=== PATIENT | female | born 1935 | race Asian ===

== ENCOUNTER → 2018-03-11 09:01 | Outpatient (CLI) | payer MEDICARE, OTHER, SELFPAY ==
--- NOTE | 2018-03-11 | DI.US.S_ITS ---
PROCEDURE: US RETRO PERITONEAL LIMITED INDICATIONS: SUPRA RENAL ABDOMINAL AORTIC ANEURYSM TECHNIQUE: Real time scanning was performed of the aorta and iliac arteries, with image documentation. COMPARISON: Outside Facility, RG, CT THORAX/ABDOMEN/PELVIS WITH CONTRAST, 07/29/2017, 12:19. FINDINGS: Aorta: Proximal aortic diameter measures 2.9 cm. Mid-aorta measures 4.5 cm (previously measuring 3.9 cm). Distal aortic diameter is 1.4 cm. Iliac arteries: Right common iliac artery measures 2.9 cm. Left common iliac artery measures 0.7 cm. IMPRESSION: Prominent aneurysm of the midabdominal aorta. The size of the aneurysm is slightly increased. The need for followup CT angiographic imaging may be determined clinically. Dictated by: Yakov Rosario M.D. on 03/11/2018 at 10:20 Approved by: Yakov Rosario M.D. on 03/11/2018 at 10:22
== END ==
PROVIDERS: Family Provider Family Medicine; PCP Family Medicine; Visit Provider Family Medicine
DX: I71.4 Abdominal aortic aneurysm, without rupture (principal)
CPT/HCPCS: 76775

== ENCOUNTER → 2018-09-01 10:58 | Outpatient (CLI) | payer MEDICARE, OTHER, SELFPAY ==
--- NOTE | 2018-09-01 | DI.US.S_ITS ---
PROCEDURE: US RETRO PERITONEAL LIMITED INDICATIONS: AAA WITHOUT RUPTURE TECHNIQUE: Real time scanning was performed of the aorta and iliac arteries, with image documentation. COMPARISON: [facility], , RETRO PERITONEAL LIMITED, 03/11/2018, 9:53. FINDINGS: Aorta: Proximal aortic diameter measures 2.5 cm. Mid-aorta measures 4.5 cm. Distal aortic diameter is 1.4 cm. Iliac arteries: Right common iliac artery measures 0.7 cm. Left common iliac artery measures 0.8 cm. IMPRESSION: No change in appearance and size of mid abdominal aortic aneurysm. 6 month followup recommended. Dictated by: Chaz Rangel [facility] Interpreted: Wes Tucker MD on 09/01/2018 at 11:54 Approved by: Wes Tucker M.D. on 09/01/2018 at 16:39
== END ==
PROVIDERS: PCP Family Medicine; Visit Provider Family Medicine
DX: I71.4 Abdominal aortic aneurysm, without rupture (principal)
CPT/HCPCS: 76775

== ENCOUNTER → 2019-08-18 07:48 | Outpatient (CLI) | payer MEDICARE, OTHER, SELFPAY ==
[2019-08-18 08:26] LABS: Alanine Aminotransferase 26 IU/L (<35); Albumin 4.8 g/dL (3.5-5.0); Albumin Globulin Ratio 1.4 (1.0-2.8); Alkaline Phosphatase 86 U/L (38-126); Aspartate Aminotransferase 36 IU/L (14-36); Bilirubin Total 0.6 mg/dL (0.2-1.3); Blood Urea Nitrogen 21 mg/dL (7-17); Carbon Dioxide 27 mmol/L (22-32); Chloride 106 mmol/L (98-107); Estimated Glomerular Filt Rate > 60.0 mL/min (>60); Globulin 3.4 g/dL (1.7-4.1); Glucose 162 mg/dL (80-110); HEMOLYSIS < 15 (0-50); Potassium 4.1 mmol/L (3.4-5.1); Sodium 143 mmol/L (137-145); Total Protein 8.2 g/dL (6.3-8.2)
--- NOTE | 2019-08-18 09:11 | DI.CT.S_ITS ---
PROCEDURE: CT ABDOMEN PELVIS W CON INDICATIONS: PELVIC PAIN,ANEURSYM TECHNIQUE: After the administration of oral and intravenous contrast, 5 mm thick sections acquired from the diaphragms to the symphysis. 5 mm thick coronal and sagittal reformats were performed. For radiation dose reduction, the following was used: automated exposure control, adjustment of mA and/or kV according to patient size. COMPARISON: Outside Film, CT, CT ANGIO CHEST ABDOMEN PELVIS, 04/02/2019, 14:39. FINDINGS: Image quality: Excellent. ABDOMEN: Lung bases: Lung bases are clear. Heart size is borderline enlarged. Solid organs: Dominant hepatic cyst measuring approximately 7 cm. Additional presumed scattered hepatic cysts although technically too small to characterize accurately. Gallbladder unremarkable although mildly distended. Extrahepatic bile ducts are mildly prominent however no definite radiopaque calculus seen by CT. This line also unchanged in 04/02/19 Pancreas enhances normally. Spleen is normal in size and enhancement. No adrenal nodules. Kidneys are normal in size and enhancement, without hydronephrosis. Bilateral renal cysts with simple appearance Peritoneum and bowel: Diminutive appearance of the collapsed stomach, which is possibly related to postsurgical sequela. Incidental duodenal diverticulum. Normal appendix. Incidental colonic diverticulosis. There is moderate large amount of diffuse stool. The small bowel, and colon loops are normal in caliber and wall thickness. No free fluid or air. Nodes and vessels: No retroperitoneal or mesenteric adenopathy. Large abdominal aortic aneurysm with intraluminal thrombus measuring 5.6 x 5.6 cm, grossly unchanged since 04/02/19 Miscellaneous: No ventral hernias. PELVIS: Genitourinary: Bladder wall thickness is normal. Miscellaneous: No inguinal hernias or adenopathy. Bones: Mild T12 compression fracture as before and grossly unchanged Nonspecific right rib sclerosis, subcentimeter in size, image 10 series 3. IMPRESSION: No acute process identified. Redemonstration of large abdominal aortic aneurysm, grossly unchanged since 04/02/19. Normal appendix. Hepatic and renal cysts. Incidental colonic diverticulosis. Additional chronic and incidental findings as above. Dictated by: Wes Tucker M.D. on 08/18/2019 at 10:41 Approved by: Wes Tucker M.D. on 08/18/2019 at 10:57
== END ==
PROVIDERS: PCP Family Medicine; Visit Provider Family Medicine
DX: R10.2 Pelvic and perineal pain (principal); I71.4 Abdominal aortic aneurysm, without rupture; K76.89 Other specified diseases of liver; N28.1 Cyst of kidney, acquired; K57.10 Diverticulosis of small intestine without perforation or abscess without bleeding; K57.90 Diverticulosis of intestine, part unspecified, without perforation or abscess without bleeding; M48.54XS Collapsed vertebra, not elsewhere classified, thoracic region, sequela of fracture
CPT/HCPCS: 36415; 74177; 80053; Q9967

== ENCOUNTER 2019-09-01 18:27 | Emergency (ER) | payer MEDICARE, OTHER, SELFPAY ==
[2019-09-01 18:40] VITALS: BP 113/65; PULSE 68; RESP 18; TEMP 37.5; O2SAT 93; BMI 22.6
[2019-09-01 19:21] LABS: INR 1.1 (0.9-1.3); Prothrombin Time 12.7 SECONDS (10.1-12.7)
[2019-09-01 19:23] LABS: Add Manual Diff / Slide Review NO; Basophils Absolute Auto 0 /uL (0-100); Basophils Percent Auto 0.2 % (0-2); Eosinophils Absolute Auto 0 /uL (0-450); Eosinophils Percent Auto 0.3 % (2-4); Hematocrit 29.2 % (36-46); Hemoglobin 9.7 g/dL (12.0-16.0); Lymphocytes Absolute Auto 700 /uL (1100-4500); Lymphocytes Percent Auto 4.7 % (25-40); Mean Corpuscular HGB Conc 33.1 % (30-36); Mean Corpuscular Hemoglobin 29.6 PG (26-34); Mean Corpuscular Volume 89.6 fL (80-100); Monocytes Absolute Auto 1900 /uL (0-900); Monocytes Percent Auto 12.3 % (3-14); Neutrophils Absolute Auto 12600 /uL (1500-7000); Neutrophils Percent Auto 82.5 % (50-75); PTT Partial Thromboplastin Tim 31 SECONDS (26.4-36.2); Platelet Count 522 X10^3/uL (150-400); Red Blood Cell Count 3.26 X10^6/uL (4.0-5.2); Red Cell Distribution Width 14.7 % (11.6-14.8); White Blood Cell Count 15.2 X10^3/uL (4.5-11.0)
[2019-09-01 19:31] LABS: Alanine Aminotransferase 19 IU/L (<35); Albumin 3.1 g/dL (3.5-5.0); Alkaline Phosphatase 95 U/L (38-126); Aspartate Aminotransferase 33 IU/L (14-36); BUN Creatinine Ratio 31.7 (6-22); Bilirubin Total 1.3 mg/dL (0.2-1.3); Blood Urea Nitrogen 19 mg/dL (7-17); Calcium 8.6 mg/dL (8.4-10.2); Carbon Dioxide 31 mmol/L (22-32); Chloride 101 mmol/L (98-107); Estimated Glomerular Filt Rate > 60.0 mL/min (>60); Globulin 3.1 g/dL (1.7-4.1); Glucose 140 mg/dL (80-110); HEMOLYSIS < 15 (0-50); Lipase 38 U/L (23-300); Potassium 4.2 mmol/L (3.4-5.1); Sodium 134 mmol/L (137-145); Total Protein 6.2 g/dL (6.3-8.2)
--- NOTE | 2019-09-01 19:33 | ED.ABDPAIN ---
HPI - Abdominal Pain General Chief Complaint: Abdominal Pain Stated Complaint: left lower abd pain Time Seen by Provider: 09/01/19 19:32 Source: patient and family Mode of arrival: Ambulatory Limitations: no limitations History of Present Illness HPI narrative: This is an 84-year-old female who is sent to the emergency department with left lower quadrant pain. Patient had an aortic aneurysm with a stent placed at [facility] on 08/23/2019. Patient's family states she had pain afterwards. They did a CAT scan shortly thereafter and it was noted that this stent was in place but there was a piece of wire or some sort of foreign body in the skin of the left kidney. She has not had any further follow-up scan since then. She has not had fevers but she continues to have left lower quadrant pain that has been slowly increasing in intensity since the surgery. Patient has been taking oxycodone 5-10 mg as needed. She was seen by her primary today on they were concerned and sent for imaging. She denies any nausea, no vomiting she has been having bowel movements that are sort of liquidy but no bright red blood or black. She has been urinating without issue no frequency dysuria or hematuria. Movement such as getting up or getting down increases her pain. Pain is in the left lower quadrant groin area but also a little bit into the back. Dr. rivers he is her primary care. She has diabetes and hypertension. Related Data Home Medications Medication Instructions Recorded Confirmed LISINOPRIL (Zestril / Prinivil) 40 mg PO Q DAY #0 09/02/07 POLYETHYLENE GLYCOL 3350 17 gm PO #0 09/20/16 acetaminophen 160 mg PO Q4HP PRN #0 09/20/16 amlodipine [Norvasc] 5 mg PO QDAY #0 09/20/16 citalopram 10 mg PO QDAY #0 09/20/16 metoprolol tartrate 12.5 mg PO BID #0 09/20/16 Previous Rx's Medication Instructions Recorded lorazepam [Ativan] 0.5 mg PO BIDP PRN #15 tab 07/15/16 nystatin 5 ml PO QID #360 ml 05/06/17 Allergies Allergy/AdvReac Type Severity Reaction Status Date / Time atenolol [ATENOLOL] Allergy Severe RESP Verified 09/01/19 18:39 DISTRESS Hglroxp-Wzt-Khd Reductase Allergy Severe RESP Verified 09/01/19 18:39 Inhibitor DISTRESS [[id number] REDUCTASE INHIBITOR] levofloxacin [From LEVAQUIN] Allergy Intermediate swollen Verified 09/01/19 18:39 tongue sertraline [From ZOLOFT] Allergy Mild UNSURE Verified 09/01/19 18:39 Iodine and Iodide Containing Allergy Verified 09/01/19 18:40 Produc Review of Systems Review of Systems ROS Unobtainable: All systems reviewed & are unremarkable except as noted in HPI and below Patient History Social History Smoking Status: Never smoker Substance Use Type: does not use Exam Narrative Exam Narrative: GENERAL: Alert and oriented x three, well-nourished female in mild distress. HEENT: Head normocephalic, atraumatic, EOMI, pupils reactive, face symmetric, moist mucous membranes NECK: Supple, full range of motion CARDIOVASCULAR: Regular rate and rhythm without murmurs, rubs or gallops. RESPIRATORY: Breath sounds equal bilaterally, no wheezes rales or rhonchi. ABDOMEN: Soft, positive for left lower quadrant as well as right lower quadrant tenderness but significantly more tender on the left. No inguinal hernias palpated on the left or right, patient's incision site is nontender. Appears to be healing appropriately. No mass, no erythema or skin changes otherwise noted other than a very small area of ecchymosis. Normoactive bowel sounds all 4 quadrants. No guarding or rebound, rigidity, no mass : No CVA tenderness EXTREMITIES: Normal range of motion, no clubbing or edema. Neurovascularly intact NEUROLOGICAL: Cranial nerves II through XII grossly intact. Moving all extremities SKIN: Warm, dry, no petechiae, no rashes or lesions. Initial Vital Signs Initial Vital Signs: Vital Signs Temperature 99.5 F 09/01/19 18:40 Pulse Rate 68 09/01/19 18:40 Respiratory Rate 18 09/01/19 18:40 Blood Pressure 113/65 09/01/19 18:40 Pulse Oximetry 93 09/01/19 18:40 Course Orders Ordered: ED Orders 09/01/19 19:00 Complete Blood Count AUTO DIFF Stat Comprehensive Metabolic Panel Stat Lipase Stat Partial Thromboplastin Time Stat Procalcitonin Stat Prothrombin Time INR Stat EKG-12 Lead Stat 09/01/19 19:57 EKG-12 Lead Stat 09/01/19 20:15 CT angio chest abdomen pelvis Stat 09/01/19 20:54 Urine Microscopic Stat 09/02/19 01:10 Urine Culture Stat Discontinued Medications Diphenhydramine HCl (Benadryl) 50 mg IV NOW ONE Stop: 09/01/19 20:47 Last Admin: 09/01/19 20:53 Dose: 50 mg Documented by: TERESITA Sodium Chloride (Normal Saline 0.9%) 1,000 mls @ 150 mls/hr IV CONT LIZETH Last Admin: 09/01/19 20:30 Dose: 150 mls/hr Documented by: TERESITA Methylprednisolone (Solu-Medrol 125 Mg Vial) 125 mg IV NOW ONE Stop: 09/01/19 20:47 Last Admin: 09/01/19 20:53 Dose: 125 mg Documented by: TERESITA Vital Signs Vital signs: Vital Signs - 8 hr 09/01/19 20:02 09/01/19 22:36 09/02/19 00:06 Pulse Rate 74 72 81 Respiratory Rate 16 18 24 Blood Pressure Blood Pressure [Right Arm] 121/66 135/75 142/70 H Pulse Oximetry 92 95 95 09/02/19 01:18 09/02/19 01:35 Pulse Rate 70 74 Respiratory Rate 20 16 Blood Pressure 135/67 Blood Pressure [Right Arm] 132/71 Pulse Oximetry 94 97 MDM - Abdominal Pain Lab Data Attestation: I reviewed the patient's lab results. Result diagrams: 09/01/19 19:00 09/01/19 19:00 Labs: Lab Results 09/01/19 09/01/19 09/01/19 Range/Units 19:00 19:00 19:00 WBC 15.2 H (4.5-11.0) X10^3/uL RBC 3.26 L (4.0-5.2) X10^6/uL Hgb 9.7 L (12.0-16.0) g/dL Hct 29.2 L (36-46) % MCV 89.6 (80-100) fL MCH 29.6 (26-34) PG MCHC 33.1 (30-36) % RDW 14.7 (11.6-14.8) % Plt Count 522 H (150-400) X10^3/uL Neut % (Auto) 82.5 H (50-75) % Lymph % (Auto) 4.7 L (25-40) % [place] % (Auto) 12.3 (3-14) % Eos % (Auto) 0.3 L (2-4) % Baso % (Auto) 0.2 (0-2) % Neut # (Auto) 24025 H (6530-0954) /uL Lymph # (Auto) 700 L (9821-4819) /uL [place] # (Auto) 1900 H (0-900) /uL Eos # (Auto) 0 (0-450) /uL Baso # (Auto) 0 (0-100) /uL PT 12.7 (10.1-12.7) SECONDS INR 1.1 (0.9-1.3) APTT 31 (26.4-36.2) SECONDS Sodium 134 L (137-145) mmol/L Potassium 4.2 (3.4-5.1) mmol/L Chloride 101 (98-107) mmol/L Carbon Dioxide 31 (22-32) mmol/L BUN 19 H (7-17) mg/dL Creatinine 0.60 (0.52-1.04) mg/dL Estimated GFR > 60.0 (>60) mL/min BUN/Creatinine Ratio 31.7 H (6-22) Glucose 140 H (80-110) mg/dL Calcium 8.6 (8.4-10.2) mg/dL Total Bilirubin 1.3 (0.2-1.3) mg/dL AST 33 (14-36) IU/L ALT 19 (<35) IU/L Alkaline Phosphatase 95 (38-126) U/L Total Protein 6.2 L (6.3-8.2) g/dL Albumin 3.1 L (3.5-5.0) g/dL Globulin 3.1 (1.7-4.1) g/dL Albumin/Globulin Ratio 1.0 (1.0-2.8) Lipase 38 (23-300) U/L Procalcitonin (<0.5) ng/mL Urine RBC (0-5/HPF) Urine WBC (0-5/HPF) Ur Squamous Epith Cells (0-5/HPF) Urine Bacteria (None) Hyaline Casts (None) Ur Culture Indicated? 09/01/19 09/02/19 Range/Units 19:00 01:10 WBC (4.5-11.0) X10^3/uL RBC (4.0-5.2) X10^6/uL Hgb (12.0-16.0) g/dL Hct (36-46) % MCV (80-100) fL MCH (26-34) PG MCHC (30-36) % RDW (11.6-14.8) % Plt Count (150-400) X10^3/uL Neut % (Auto) (50-75) % Lymph % (Auto) (25-40) % [place] % (Auto) (3-14) % Eos % (Auto) (2-4) % Baso % (Auto) (0-2) % Neut # (Auto) (9988-2085) /uL Lymph # (Auto) (3303-6220) /uL [place] # (Auto) (0-900) /uL Eos # (Auto) (0-450) /uL Baso # (Auto) (0-100) /uL PT (10.1-12.7) SECONDS INR (0.9-1.3) APTT (26.4-36.2) SECONDS Sodium (137-145) mmol/L Potassium (3.4-5.1) mmol/L Chloride (98-107) mmol/L Carbon Dioxide (22-32) mmol/L BUN (7-17) mg/dL Creatinine (0.52-1.04) mg/dL Estimated GFR (>60) mL/min BUN/Creatinine Ratio (6-22) Glucose (80-110) mg/dL Calcium (8.4-10.2) mg/dL Total Bilirubin (0.2-1.3) mg/dL AST (14-36) IU/L ALT (<35) IU/L Alkaline Phosphatase (38-126) U/L Total Protein (6.3-8.2) g/dL Albumin (3.5-5.0) g/dL Globulin (1.7-4.1) g/dL Albumin/Globulin Ratio (1.0-2.8) Lipase (23-300) U/L Procalcitonin 0.33 (<0.5) ng/mL Urine RBC None seen (0-5/HPF) Urine WBC 30-100/hpf H (0-5/HPF) Ur Squamous Epith Cells 1-5 /hpf (0-5/HPF) Urine Bacteria Many (>30) H (None) Hyaline Casts 0-1/lpf (None) Ur Culture Indicated? Specimen cultured Point of care testing: Urine Dip Bedside Urine Glucose Negative Bedside Urine Bilirubin - Negative Bedside Urine Ketone - Negative Urine Specific Reva 1.015 Bedside Urine Occult Blood +/- Bedside Urine pH 6.0 Bedside Urine Protein +/- 15 Bedside Urine Urobilinogen 1+ 2mg Bedside Urine Nitrite - Negative Bedside Urine Leukocytes +++ [address] scan - abdomen: Radiologist's impression: Natasha Manzo 84 F [address] [address] [address] Scan Report Signed Patient: Natasha Manzo MMR#: [id number] : 5Acct:[id number] Age/Sex: 84 / FDate of Service: 09/01/19 Loc: ED Accession Number: [id number] Procedure: CT angio chest abdomen pelvis Ordering Provider: Tiara Chakraborty D.O. PROCEDURE: CT ANGIO CHEST ABDOMEN PELVIS INDICATIONS: aortic stent 08/23, FB L kidney post, ?infx, LLQ pain TECHNIQUE: Precontrast 5 mm thick sections acquired from the lung apices to the iliac crests. After the administration of intravenous contrast, 2.5 mm thick sections again acquired from the lung apices to the iliac crests. Maximum intensity projection (MIP) oblique sagittal and coronal reformats were then acquired. For radiation dose reduction, the following was used: automated exposure control. COMPARISON: [facility], CT, CT ABDOMEN PELVIS W CON, 08/18/2019, 9:09. Outside Film, CT, CT ANGIO CHEST ABDOMEN PELVIS, 04/02/2019, 14:39. FINDINGS: Image quality: Excellent. AORTA: Moderate amount of atherosclerotic calcifications are seen throughout thoracic aorta with no evidence of thoracic aortic aneurysm or dissection. Patient is status post interval abdominal aortic aneurysm repair with aortic stent seen in patient's known fusiform abdominal aortic aneurysm currently measures up to 5.7 x 5.7 cm in largest transverse and AP diameters. There is placement of vascular stents at the origin of celiac axis, superior mesenteric artery, and bilateral renal arteries with contrast seen within and distal to the stents. No evidence of occlusion. There is thrombus formation within the aneurysmal sac. No evidence of endoleak. Moderate atherosclerotic calcifications in bilateral iliac arteries are seen. No iliac artery aneurysm or dissection. Bilateral iliac arteries and femoral arteries are patent. CHEST: Lungs and pleura: Small left pleural effusion is seen with adjacent left lower lobe atelectasis. Right basilar scarring/atelectasis is also seen. No pneumothorax. Central and peripheral airways are patent and normal in caliber. Mediastinum: Heart size is normal. No pericardial effusion. No mediastinal or hilar adenopathy by size criteria. Central pulmonary arteries are normal in size. Esophagus is normal in caliber. No hiatal hernias. Bones and chest wall: No axillary adenopathy by size criteria. Heterogeneous enhancement of the thyroid gland is seen with suggestion of right thyroid nodules. No suspicious bony lesions. No vertebral body compression fractures. ABDOMEN: Solid organs: Liver is normal in size. Multiple renal cysts are again seen, unchanged from previous study Gallbladder is is markedly distended, no gross bladder wall thickening. No calcified bladder stone.. There is no intrahepatic biliary ductal dilatation. Marked dilatation of common bile that is seen and measures up to 1.5 cm in largest diameter compared to 1.1 cm on previous study. Pancreas enhances normally. Spleen is normal in size and enhancement. No adrenal nodules. There is no hydronephrosis. Interval development of massive left subcapsular hematoma is seen measures up to 10 x 7.3 x 14.4 cm in size. There is concern for laceration involving upper pole of left kidney. No right perinephric fluid collection is seen. Normal right renal enhancement is noted. Peritoneum and bowel: No free fluid or air. Bowel loops are normal in caliber and wall thickness. Fecal stasis in the ascending colon and transverse colon is seen. Nodes and vessels: No retroperitoneal or mesenteric adenopathy by size criteria. Inferior vena cava is normal in morphology. Miscellaneous: No ventral hernias. PELVIS: Genitourinary: Bladder wall thickness is normal. Miscellaneous: No inguinal hernias or adenopathy. No ventral hernias. Bones: No suspicious bony lesions. Chronic appearing anterior wedge compression deformity at the T12 level is again seen and unchanged. No acute compression fracture. 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 There is prior right hip arthroplasty. IMPRESSION: 1. interval development of massive left subcapsular perinephric hematoma with concern of laceration involving upper pole of left kidney. No hydronephrosis. Right kidney is within normal limits. 2. Interval abdominal aortic aneurysm repair with aortic stent and stents placed at origin of celiac artery, superior mesenteric artery and bilateral renal arteries. All stents appears to be patent with no evidence of endoleak. 3. Interval development of small to moderate left pleural effusion with adjacent left basilar atelectasis. 4. No evidence of bowel obstruction. No peritoneal free fluid or free air. Fecal stasis in the right side of colon and transverse colon. 5. Multiple right renal cysts. Prominence of common bile duct with increase in size compared to previous study. No gross choledocholithiasis is seen. Gallbladder is markedly distended with no calcified gallstone or gallbladder wall thickening to suggest acute cholecystitis. Dictated by: Cj Boggs M.D. on 09/01/2019 at 21:25 Approved by: Cj Boggs M.D. on 09/01/2019 at 22:47 ECG Data Attestation: I personally reviewed and interpreted this ECG as follows: Prior ECG tracings: available for review Interpretation: Sinus rhythm rate of 65 P are 173 QRS of 105 and QTC of 381. V3 appears to have possibly some ST elevation but not in continuous leads otherwise. Patient's ST segments otherwise appears similar to prior EKG from 09/20/2016 with no other elevation or depression appreciated. EKG 2. Shows sinus rhythm with occasional supraventricular complex. Rate of 67 P are 170 QRS of [address] elevation is not appreciate in V3 or other leads and appears similar to prior. MDM Narrative Medical decision making narrative: Patient's imaging was pushed to [facility] and I spoke with the vascular team and Dr. Ewing, he compared images from July post surgically with today's images and states that the hematoma was present and has not increased in size. He states it is slightly more defined but the same size. We discussed the patient's hemoglobin and hematocrit are actually slightly improved today compared to her last at [facility]. He does not see any signs of pseudoaneurysm or acute bleeding. Discussed that if patient was having significant pain could be observed here at [facility] for pain control and potentially discharged home today but if patient's pain is well controlled she could return home. He indicated that the surgical team would be contacting the patient and family tomorrow for follow-up. Patient has scheduled follow-up on September 28. He did not feel the patient need specific serial imaging for this beyond what is already planned. From his description the patient likely had a wire from their stenting procedure perforate or lacerate the kidney causing the hematoma and it was developed noted while in the hospital and sounds to be stable at this time. We did discuss that her white count is slightly elevated. Patient is denying any fevers currently and has been afebrile we discussed that if she has any worsening symptoms she does need to return as she could develop an infection. Discussed with patient and family they feel comfortable with this plan. She would like to return home at this time and states her pain is well controlled at this time and that it has been fairly well controlled with the pain medication she has been taking. Discharge Plan Departure Patient Disposition: Home Clinical Impression: Hematoma of kidney, History of endovascular stent graft for abdominal aortic aneurysm Discharge Date/Time: 09/02/19 01:36 Activity Restrictions/Additional Instructions: Follow-up with your surgical team, call tomorrow if you have not heard from them by noon. Your CT imaging today shows a very large hematoma on the left kidney, these images were pushed to [facility] and the hematoma has not changed or increased in size since your CT in July. Your hemoglobin has improved very slightly from when you are at [facility]. Continue your pain medication as prescribed. Follow-up with Dr. Temple in the next 2-3 days for recheck. Return to the emergency department for fevers greater than 100.4 F, rapidly worsening or new abdominal pain, passing out, lightheadedness, hematuria or blood in your urine, black or bloody stools, new bruising of the back flank or abdomen or other new or concerning symptoms. Prescriptions: No Action LISINOPRIL (Zestril / Prinivil) 40 mg PO Q DAY Qty: 0 RF: 0 lorazepam [Ativan] 0.5 MG tablet 0.5 mg PO BIDP PRNQty: 15 RF: 0 citalopram 10 MG tablet 10 mg PO QDAY Qty: 0 RF: 0 POLYETHYLENE GLYCOL 3350 17 gm PO Qty: 0 RF: 0 amlodipine [Norvasc] 5 MG tablet 5 mg PO QDAY Qty: 0 RF: 0 metoprolol tartrate 25 MG tablet 12.5 mg PO BID Qty: 0 RF: 0 acetaminophen 160 MG/5 ML liquid 160 mg PO Q4HP PRNQty: 0 RF: 0 nystatin 100,000 UNIT/1 ML suspension 5 ml PO QID Qty: 360 RF: 1 Referrals: Akiko Temple MD [Primary Care Provider] -
--- NOTE | 2019-09-01 19:50 | PC.NURSE ---
Pt arrived with family. reports abd pain x 2 months. recent Aortic stent placed at . Anather reports abnormal CT scan while at post surgery with foreign body seen on report. obtaining [facility] records. Pain improves with oxycodone. Pt awake and alert. 20G IV placed in R wrist. labs sent. RT called for EKG. Awaiting further orders.
[2019-09-01 20:02] VITALS: BP 121/66; PULSE 74; RESP 16; O2SAT 92
--- NOTE | 2019-09-01 20:15 | DI.CT.S_ITS ---
PROCEDURE: CT ANGIO CHEST ABDOMEN PELVIS INDICATIONS: aortic stent 08/23, FB L kidney post, ?infx, LLQ pain TECHNIQUE: Precontrast 5 mm thick sections acquired from the lung apices to the iliac crests. After the administration of intravenous contrast, 2.5 mm thick sections again acquired from the lung apices to the iliac crests. Maximum intensity projection (MIP) oblique sagittal and coronal reformats were then acquired. For radiation dose reduction, the following was used: automated exposure control. COMPARISON: [facility], CT, CT ABDOMEN PELVIS W CON, 08/18/2019, 9:09. Outside Film, CT, CT ANGIO CHEST ABDOMEN PELVIS, 04/02/2019, 14:39. FINDINGS: Image quality: Excellent. AORTA: Moderate amount of atherosclerotic calcifications are seen throughout thoracic aorta with no evidence of thoracic aortic aneurysm or dissection. Patient is status post interval abdominal aortic aneurysm repair with aortic stent seen in patient's known fusiform abdominal aortic aneurysm currently measures up to 5.7 x 5.7 cm in largest transverse and AP diameters. There is placement of vascular stents at the origin of celiac axis, superior mesenteric artery, and bilateral renal arteries with contrast seen within and distal to the stents. No evidence of occlusion. There is thrombus formation within the aneurysmal sac. No evidence of endoleak. Moderate atherosclerotic calcifications in bilateral iliac arteries are seen. No iliac artery aneurysm or dissection. Bilateral iliac arteries and femoral arteries are patent. CHEST: Lungs and pleura: Small left pleural effusion is seen with adjacent left lower lobe atelectasis. Right basilar scarring/atelectasis is also seen. No pneumothorax. Central and peripheral airways are patent and normal in caliber. Mediastinum: Heart size is normal. No pericardial effusion. No mediastinal or hilar adenopathy by size criteria. Central pulmonary arteries are normal in size. Esophagus is normal in caliber. No hiatal hernias. Bones and chest wall: No axillary adenopathy by size criteria. Heterogeneous enhancement of the thyroid gland is seen with suggestion of right thyroid nodules. No suspicious bony lesions. No vertebral body compression fractures. ABDOMEN: Solid organs: Liver is normal in size. Multiple renal cysts are again seen, unchanged from previous study Gallbladder is is markedly distended, no gross bladder wall thickening. No calcified bladder stone.. There is no intrahepatic biliary ductal dilatation. Marked dilatation of common bile that is seen and measures up to 1.5 cm in largest diameter compared to 1.1 cm on previous study. Pancreas enhances normally. Spleen is normal in size and enhancement. No adrenal nodules. There is no hydronephrosis. Interval development of massive left subcapsular hematoma is seen measures up to 10 x 7.3 x 14.4 cm in size. There is concern for laceration involving upper pole of left kidney. No right perinephric fluid collection is seen. Normal right renal enhancement is noted. Peritoneum and bowel: No free fluid or air. Bowel loops are normal in caliber and wall thickness. Fecal stasis in the ascending colon and transverse colon is seen. Nodes and vessels: No retroperitoneal or mesenteric adenopathy by size criteria. Inferior vena cava is normal in morphology. Miscellaneous: No ventral hernias. PELVIS: Genitourinary: Bladder wall thickness is normal. Miscellaneous: No inguinal hernias or adenopathy. No ventral hernias. Bones: No suspicious bony lesions. Chronic appearing anterior wedge compression deformity at the T12 level is again seen and unchanged. No acute compression fracture. 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 There is prior right hip arthroplasty. IMPRESSION: 1. interval development of massive left subcapsular perinephric hematoma with concern of laceration involving upper pole of left kidney. No hydronephrosis. Right kidney is within normal limits. 2. Interval abdominal aortic aneurysm repair with aortic stent and stents placed at origin of celiac artery, superior mesenteric artery and bilateral renal arteries. All stents appears to be patent with no evidence of endoleak. 3. Interval development of small to moderate left pleural effusion with adjacent left basilar atelectasis. 4. No evidence of bowel obstruction. No peritoneal free fluid or free air. Fecal stasis in the right side of colon and transverse colon. 5. Multiple right renal cysts. Prominence of common bile duct with increase in size compared to previous study. No gross choledocholithiasis is seen. Gallbladder is markedly distended with no calcified gallstone or gallbladder wall thickening to suggest acute cholecystitis. Dictated by: Cj Boggs M.D. on 09/01/2019 at 21:25 Approved by: Cj Boggs M.D. on 09/01/2019 at 22:47
[2019-09-01] MEDS: SODIUM CHLORIDE 0.9% 1,000 ML 150 ML IV (20:30)
[2019-09-01] MEDS: methylPREDNISolone 125 MG/2 ML VIAL IV (20:53)
[2019-09-01] MEDS: diphenhydrAMINE 50 MG/ML VIAL IV (20:53)
[2019-09-01 21:16] LABS: Procalcitonin 0.33 ng/mL (<0.5)
[2019-09-01 22:36] VITALS: BP 135/75; PULSE 72; RESP 18; O2SAT 95
[2019-09-02 00:06] VITALS: BP 142/70; PULSE 81; RESP 24; RESP 26; O2SAT 94; O2SAT 95
[2019-09-02 01:15] LABS: RBC Urine None Seen (0-5/HPF)
[2019-09-02 01:18] VITALS: BP 132/71; PULSE 70; RESP 20; O2SAT 94
[2019-09-02 01:21] LABS: Squamous Epithelial Cell Urine 1-5 /HPF (0-5/HPF); WBC Urine 30-100/HPF (0-5/HPF)
[2019-09-02 01:22] LABS: Bacteria Urine Many (>30); Culture Indicated Urine Specimen Cultured; Hyaline Casts Urine 0-1/LPF
[2019-09-02 01:35] VITALS: BP 135/67; PULSE 74; RESP 16; O2SAT 97
== END 2019-09-02 01:36 | disposition home or self-care (01) ==
PROVIDERS: Emergency Medicine; Emergency Provider Emergency Medicine; PCP Family Medicine
DX: S37.022A Major contusion of left kidney, initial encounter (principal); Z95.828 Presence of other vascular implants and grafts; R10.32 Left lower quadrant pain; R79.89 Other specified abnormal findings of blood chemistry
CPT/HCPCS: 36415; 71275; 74174; 80053; 81003; 81015; 83690; 84145; 85025; 85610; 85730; 87077; 87086; 87186; 93005; 96374; 96375; 99284; 99285; J1200; J2930; Q9967

== ENCOUNTER 2019-09-26 10:49 | Emergency (ER) | payer MEDICARE, OTHER, SELFPAY ==
[2019-09-26 10:50] VITALS: BP 108/58; PULSE 64; RESP 20; TEMP 36.8; O2SAT 95; BMI 17.9
[2019-09-26 11:12] LABS: Add Manual Diff / Slide Review NO; Basophils Absolute Auto 100 /uL (0-100); Basophils Percent Auto 0.6 % (0-2); Eosinophils Absolute Auto 0 /uL (0-450); Eosinophils Percent Auto 0.3 % (2-4); Hematocrit 34.7 % (36-46); Hemoglobin 11.4 g/dL (12.0-16.0); Lymphocytes Absolute Auto 1800 /uL (1100-4500); Lymphocytes Percent Auto 18.8 % (25-40); Mean Corpuscular HGB Conc 32.9 % (30-36); Mean Corpuscular Hemoglobin 29.6 PG (26-34); Monocytes Absolute Auto 1100 /uL (0-900); Monocytes Percent Auto 11.1 % (3-14); Neutrophils Absolute Auto 6800 /uL (1500-7000); Neutrophils Percent Auto 69.2 % (50-75); Platelet Count 453 X10^3/uL (150-400); Red Blood Cell Count 3.86 X10^6/uL (4.0-5.2); Red Cell Distribution Width 15.2 % (11.6-14.8); White Blood Cell Count 9.9 X10^3/uL (4.5-11.0)
[2019-09-26 11:15] LABS: INR 1.1 (0.9-1.3); Prothrombin Time 12.2 SECONDS (10.1-12.7)
[2019-09-26 11:17] LABS: PTT Partial Thromboplastin Tim 33 SECONDS (26.4-36.2)
[2019-09-26 11:18] LABS: Alanine Aminotransferase 15 IU/L (<35); Albumin 3.5 g/dL (3.5-5.0); Albumin Globulin Ratio 0.9 (1.0-2.8); Alkaline Phosphatase 115 U/L (38-126); Aspartate Aminotransferase 33 IU/L (14-36); Bilirubin Total 0.7 mg/dL (0.2-1.3); Blood Urea Nitrogen 42 mg/dL (7-17); Calcium 8.9 mg/dL (8.4-10.2); Carbon Dioxide 24 mmol/L (22-32); Chloride 105 mmol/L (98-107); Estimated Glomerular Filt Rate 42.8 mL/min (>60); Globulin 4.1 g/dL (1.7-4.1); Glucose 102 mg/dL (80-110); HEMOLYSIS < 15 (0-50); Lipase 206 U/L (23-300); Sodium 136 mmol/L (137-145); Total Protein 7.6 g/dL (6.3-8.2)
[2019-09-26 11:19] LABS: Lactate (Lactic Acid) 1.7 mmol/L (0.7-2.1)
--- NOTE | 2019-09-26 11:26 | PC.NURSE ---
Pt arrived with family. complaints of increased fatique, weakness, inability to keep anything down--vomiting. Recent surgery in Nov of large aortic stent. Has lost over 20lbs since surgery b/c she is unable to keep down food/fluids adequately and is having diarrhea. appears well. in good color. placed on monitoring manager. IV placed and labs drawn and sent per protocol. Family at side and pt in NAD. RR easy and unlabored. Abd SNT with intact scar. NSR 60's. 97% RA
[2019-09-26 11:30] VITALS: BP 100/51; PULSE 62; RESP 19; O2SAT 95
--- NOTE | 2019-09-26 11:44 | ED_ITS ---
HPI - Weakness <Sushma AnsariAJIT - Last Filed: 09/26/19 20:55> General Chief complaint: Weakness Stated complaint: has lost lot of weight since surgery in nov Time Seen by Provider: 09/26/19 11:33 Source: patient and family Mode of arrival: Wheelchair History of Present Illness HPI Narrative: This is an 84-year-old female with a history of an aortic aneurysm with a stent placed at [facility] on 08/23/2019, presents to emergency department with her family for decreased appetite and increased fa tigue since the surgery. Her has been reports she has been complaining that has been difficult to swallow food and that ?food is getting stuck ?. Her reports her diet consists mostly of liquids, broth, gait area, and avocado. Four days ago she had 3 large lose stools and since then her bowel movements have been continually watery. Patient denies vomiting, fevers, cough, sore throat, chest pain, shortness of breath, or other concerns. Her reports that she has left lower quadrant pain but has had this since the surgery and she has been worked up multiple times for this. He reports this pain has not changed. Related Data Home Medications Medication Instructions Recorded Confirmed LISINOPRIL (Zestril / Prinivil) 40 mg PO Q DAY #0 09/02/07 POLYETHYLENE GLYCOL 3350 17 gm PO #0 09/20/16 acetaminophen 160 mg PO Q4HP PRN #0 09/20/16 amlodipine [Norvasc] 5 mg PO QDAY #0 09/20/16 citalopram 10 mg PO QDAY #0 09/20/16 metoprolol tartrate 12.5 mg PO BID #0 09/20/16 Previous Rx's Medication Instructions Recorded lorazepam [Ativan] 0.5 mg PO BIDP PRN #15 tab 07/15/16 nystatin 5 ml PO QID #360 ml 05/06/17 Allergies Allergy/AdvReac Type Severity Reaction Status Date / Time atenolol [ATENOLOL] Allergy Severe RESP Verified 09/26/19 11:01 DISTRESS [id number] Reductase Allergy Severe RESP Verified 09/26/19 11:01 Inhibitor DISTRESS [[id number] REDUCTASE INHIBITOR] levofloxacin [From LEVAQUIN] Allergy Intermediate swollen Verified 09/26/19 11:01 tongue sertraline [From ZOLOFT] Allergy Mild UNSURE Verified 09/26/19 11:01 Iodine and Iodide Containing Allergy Verified 09/26/19 11:01 Produc Review of Systems <AJIT Gibbons - Last Filed: 09/26/19 20:55> Review of Systems Narrative: REVIEW OF SYSTEMS: GENERAL: Reports increasing fatigue and decreased appetite, see HPI. HENT: No head trauma, hearing loss or sore throat. EYES: No loss of vision, double vision, eye pain, or irritation. CARDIOVASCULAR: No chest pain or syncope. RESPIRATORY: No shortness of breath or cough. GASTROINTESTINAL: No nausea or vomiting. Reports episodes of diarrhea, see HPI. GENITOURINARY: No flank pain or dysuria. MUSCULOSKELETAL: No pain, weakness, or deformities. INTEGUMENTARY: No rash, lesions, or pruritus. NEURO: No numbness, tingling, memory loss, or confusion. PSYCH: No behavior or mood changes. Patient History <AJIT Gibbons - Last Filed: 09/26/19 20:55> Surgical History S/P total hip arthroplasty (Acute) Social History Smoking Status: Never smoker Smoking Status: Never smoker Substance Use Type: does not use Exam <AJIT Gibbons - Last Filed: 09/26/19 20:55> Initial Vital Signs Initial Vital Signs: Vital Signs Temperature 98.2 F 09/26/19 10:50 Pulse Rate 64 09/26/19 10:50 Respiratory Rate 20 09/26/19 10:50 Blood Pressure 108/58 L 09/26/19 10:50 Pulse Oximetry 95 09/26/19 10:50 PHYSICAL EXAMINATION: GENERAL: Patient asleep in bed, awakes with voice. Answers questions promptly and appropriately. Vital signs noted. HENT: Normocephalic, atraumatic. Ear canals patent. Oral mucosa is pink and moist. EYES: Conjunctiva pink, sclera white, no periorbital swelling. CHEST: Normal to inspection and without deformities. CARDIOVASCULAR: S1 and S2 sounds heard. Irregular rate, patient is known AFib. RESPIRATORY: Normal respiratory rate, trachea midline, airway patent. No stridor, nasal flaring or accessory muscle use. Lungs are clear in all taylor without wheeze, rhonchi, or crackles. GASTROINTESTINAL: Bowel sounds normoactive. Left lower quadrant tenderness. No rebound tenderness. No organomegaly MUSCULOSKELETAL: Normal gait and coordination. Equal tone and mass bilaterally. EXTREMITIES: CMS intact. Moves all extremities. SKIN: Warm, dry, soft, appropriate color for ethnicity. No lesions, rashes, or wounds. NEURO: Alert and Oriented X 3. Good coordination. No ataxia, or sensory deficits, or cognitive issues. PSYCH: Appropriate affect and mood. <Tiara Charkaborty DO - Last Filed: 09/29/19 07:56> Initial Vital Signs Initial Vital Signs: Vital Signs Temperature 98.2 F 09/26/19 10:50 Pulse Rate 64 09/26/19 10:50 Respiratory Rate 20 09/26/19 10:50 Blood Pressure 108/58 L 09/26/19 10:50 Pulse Oximetry 95 09/26/19 10:50 Course <AJIT Gibbons - Last Filed: 09/26/19 20:55> Course Course Narrative: Patient was given 1 L fluids in the emergency department, after administration of fluids she was sitting up and talking stated she felt much better. Patient's blood pressure increased from 100 systolic to116 after fluids as well She was encouraged to leave a sample of fecal matter, but wasn't able to go to the bathroom at this time. Patient was given a sample kit to take home and an outpatient order for a GI panel due to continued diarrhea. After much discussion with the family, the CT chest/abd/pelvis was offered at this time but patient and family declined after discussion of IV contrast and kidney function. They elected to wait to have the CT abdomen/chest/pelvis at the [facility] which is scheduled tomorrow in hopes of also having the CT cardiac procedure done at the same time to minimize exposure to contrast dye. Orders Ordered: Discontinued Medications Sodium Chloride (Normal Saline 0.9%) 1,000 mls @ 1,000 mls/hr IV BOLUS ONE Stop: 09/26/19 13:18 Last Infusion: 09/26/19 13:33 Dose: 0 mls/hr Documented by: Admin: 09/26/19 12:31 Dose: 1,000 mls/hr Documented by: TERESITA Consultations Consultation #1: Patient staffed with Dr. Chakraborty. Vital Signs Vital signs: Vital Signs - 8 hr 09/26/19 13:30 09/26/19 14:09 Pulse Rate 68 71 Respiratory Rate 14 19 Blood Pressure [Right Arm] 116/51 L 106/62 Pulse Oximetry 96 96 <Tiara Chakraborty DO - Last Filed: 09/29/19 07:56> Orders Ordered: Discontinued Medications Sodium Chloride (Normal Saline 0.9%) 1,000 mls @ 1,000 mls/hr IV BOLUS ONE Stop: 09/26/19 13:18 Last Infusion: 09/26/19 13:33 Dose: 0 mls/hr Documented by: Admin: 09/26/19 12:31 Dose: 1,000 mls/hr Documented by: TERESITA Vital Signs Vital signs: Vital Signs - 8 hr 09/26/19 13:30 09/26/19 14:09 Pulse Rate 68 71 Respiratory Rate 14 19 Blood Pressure [Right Arm] 116/51 L 106/62 Pulse Oximetry 96 96 MDM - Weakness <AJIT Gibbons - Last Filed: 09/26/19 20:55> Medical Records Attestation: I reviewed the patient's medical records. Lab Data Attestation: I reviewed the patient's lab results. Result diagrams: 09/26/19 10:55 09/26/19 10:55 Labs: Lab Results 09/26/19 09/26/19 09/26/19 Range/Units 10:55 10:55 10:55 WBC 9.9 (4.5-11.0) X10^3/uL RBC 3.86 L (4.0-5.2) X10^6/uL Hgb 11.4 L (12.0-16.0) g/dL Hct 34.7 L (36-46) % MCV 90.0 (80-100) fL MCH 29.6 (26-34) PG MCHC 32.9 (30-36) % RDW 15.2 H (11.6-14.8) % Plt Count 453 H (150-400) X10^3/uL Neut % (Auto) 69.2 (50-75) % Lymph % (Auto) 18.8 L (25-40) % [place]re % (Auto) 11.1 (3-14) % Eos % (Auto) 0.3 L (2-4) % Baso % (Auto) 0.6 (0-2) % Neut # (Auto) 6800 (8591-0758) /uL Lymph # (Auto) 1800 (2365-3074) /uL [place] # (Auto) 1100 H (0-900) /uL Eos # (Auto) 0 (0-450) /uL Baso # (Auto) 100 (0-100) /uL PT 12.2 (10.1-12.7) SECONDS INR 1.1 (0.9-1.3) APTT 33 D (26.4-36.2) SECONDS Sodium 136 L (137-145) mmol/L Potassium 5.0 (3.4-5.1) mmol/L Chloride 105 (98-107) mmol/L Carbon Dioxide 24 (22-32) mmol/L BUN 42 H (7-17) mg/dL Creatinine 1.20 H (0.52-1.04) mg/dL Estimated GFR 42.8 L (>60) mL/min BUN/Creatinine Ratio 35.0 H (6-22) Glucose 102 (80-110) mg/dL Lactate (0.7-2.1) mmol/L Calcium 8.9 (8.4-10.2) mg/dL Total Bilirubin 0.7 (0.2-1.3) mg/dL AST 33 (14-36) IU/L ALT 15 (<35) IU/L Alkaline Phosphatase 115 (38-126) U/L Total Protein 7.6 (6.3-8.2) g/dL Albumin 3.5 (3.5-5.0) g/dL Globulin 4.1 (1.7-4.1) g/dL Albumin/Globulin Ratio 0.9 L (1.0-2.8) Lipase 206 (23-300) U/L Stl C. cayetanensis PCR (Not Detect) Stool Rotavirus (PCR) (Not Detect) Stool Adenovirus (PCR) (Not Detect) Stool Astrovirus (PCR) (Not Detect) Stool Cryptosporidium PCR (Not Detect) Stl E.coli Shiga Tox PCR (Not Detect) St Sh/Enteroin Ecoli PCR (Not Detect) Stool E coli O157 PCR Stl Enterotoxigenic E PCR (Not Detect) Stool EPEC (PCR) (Not Detect) Stl E. histolytica PCR (Not Detect) Stool Giardia Lamblia PCR (Not Detect) Stool Sapovirus (PCR) (Not Detect) Stl P. shigelloides PCR (Not Detect) St Y.enterocolitica PCR (Not Detect) Stool Vibrio (PCR) (Not Detect) Stl Vibrio cholerae PCR (Not Detect) Stl Enteroaggr Ecoli PCR (Not Detect) Stl Norovirus GI/GII PCR (Not Detect) Campylobacter (PCR) (Not Detect) C. difficile Tox (PCR) (Not Detect) Salmonella (PCR) (Not Detect) 09/26/19 09/27/19 Range/Units 10:55 13:17 WBC (4.5-11.0) X10^3/uL RBC (4.0-5.2) X10^6/uL Hgb (12.0-16.0) g/dL Hct (36-46) % MCV (80-100) fL MCH (26-34) PG MCHC (30-36) % RDW (11.6-14.8) % Plt Count (150-400) X10^3/uL Neut % (Auto) (50-75) % Lymph % (Auto) (25-40) % Lamoure % (Auto) (3-14) % Eos % (Auto) (2-4) % Baso % (Auto) (0-2) % Neut # (Auto) (4008-3899) /uL Lymph # (Auto) (5373-7481) /uL [place] # (Auto) (0-900) /uL Eos # (Auto) (0-450) /uL Baso # (Auto) (0-100) /uL PT (10.1-12.7) SECONDS INR (0.9-1.3) APTT (26.4-36.2) SECONDS Sodium (137-145) mmol/L Potassium (3.4-5.1) mmol/L Chloride (98-107) mmol/L Carbon Dioxide (22-32) mmol/L BUN (7-17) mg/dL Creatinine (0.52-1.04) mg/dL Estimated GFR (>60) mL/min BUN/Creatinine Ratio (6-22) Glucose (80-110) mg/dL Lactate 1.7 (0.7-2.1) mmol/L Calcium (8.4-10.2) mg/dL Total Bilirubin (0.2-1.3) mg/dL AST (14-36) IU/L ALT (<35) IU/L Alkaline Phosphatase (38-126) U/L Total Protein (6.3-8.2) g/dL Albumin (3.5-5.0) g/dL Globulin (1.7-4.1) g/dL Albumin/Globulin Ratio (1.0-2.8) Lipase (23-300) U/L Stl C. cayetanensis PCR Not detected (Not Detect) Stool Rotavirus (PCR) Not detected (Not Detect) Stool Adenovirus (PCR) Not detected (Not Detect) Stool Astrovirus (PCR) Not detected (Not Detect) Stool Cryptosporidium PCR Not detected (Not Detect) Stl E.coli Shiga Tox PCR Not detected (Not Detect) St Sh/Enteroin Ecoli PCR Not detected (Not Detect) Stool E coli O157 PCR Not Reportable Stl Enterotoxigenic E PCR Not detected (Not Detect) Stool EPEC (PCR) Not detected (Not Detect) Stl E. histolytica PCR Not detected (Not Detect) Stool Giardia Lamblia PCR Not detected (Not Detect) Stool Sapovirus (PCR) Not detected (Not Detect) Stl P. shigelloides PCR Not detected (Not Detect) St Y.enterocolitica PCR Not detected (Not Detect) Stool Vibrio (PCR) Not detected (Not Detect) Stl Vibrio cholerae PCR Not detected (Not Detect) Stl Enteroaggr Ecoli PCR Not detected (Not Detect) Stl Norovirus GI/GII PCR Not detected (Not Detect) Campylobacter (PCR) Detected H (Not Detect) C. difficile Tox (PCR) Not detected (Not Detect) Salmonella (PCR) Not detected (Not Detect) ECG Data Interpretation: EKG was interpreted by Dr. Chakraborty [facility] Narrative Medical decision making narrative: A 4-year-old female with history of an aortic stent placement, presents emergency department with continued fatigue since this procedure in July. Labs were non-remarkable other than decreased renal function. Since this decreased appetite has been ongoing for quite some time, I do not suspect that it is of acute origin. CT chest abdomen pelvis was offered at this time, but family declined after further discussion as she is scheduled for this procedure tomorrow and scheduled for another CT that includes contrast dye. We discussed that too much exposure to dye and decreased lining renal function could increased patient's risk for renal injury. Patient seen do remarkably improve after administration of fluids. Differential includes infectious diarrhea such as C diff due to increased hospital stays, less likely acute abdominal etiology as patient's left lower quadrant pain has been present for over the past few months and they deny change of this pain at this time. There's also suspicion for cancer, or Portillo's esophagus due to painful swelling. I discussed that getting the CT as scheduled would be important step and diagnostics. I also discussed the importance of follow-up with their primary care provider for a possible endoscopy if the symptoms continue. Patient was encouraged to drink Gatorade and Pedialyte. She was encouraged to return emergency department for any new or worsening symptoms. Patient and family agreed with plan of care and verbalized understanding. <Tiara Chakraborty, DO - Last Filed: 09/29/19 07:56> Lab Data Attestation: I reviewed the patient's lab results. Labs: Lab Results 09/26/19 09/26/19 09/26/19 Range/Units 10:55 10:55 10:55 WBC 9.9 (4.5-11.0) X10^3/uL RBC 3.86 L (4.0-5.2) X10^6/uL Hgb 11.4 L (12.0-16.0) g/dL Hct 34.7 L (36-46) % MCV 90.0 (80-100) fL MCH 29.6 (26-34) PG MCHC 32.9 (30-36) % RDW 15.2 H (11.6-14.8) % Plt Count 453 H (150-400) X10^3/uL Neut % (Auto) 69.2 (50-75) % Lymph % (Auto) 18.8 L (25-40) % [place] % (Auto) 11.1 (3-14) % Eos % (Auto) 0.3 L (2-4) % Baso % (Auto) 0.6 (0-2) % Neut # (Auto) 6800 (2206-5382) /uL Lymph # (Auto) 1800 (3951-8392) /uL [place] # (Auto) 1100 H (0-900) /uL Eos # (Auto) 0 (0-450) /uL Baso # (Auto) 100 (0-100) /uL PT 12.2 (10.1-12.7) SECONDS INR 1.1 (0.9-1.3) APTT 33 D (26.4-36.2) SECONDS Sodium 136 L (137-145) mmol/L Potassium 5.0 (3.4-5.1) mmol/L Chloride 105 (98-107) mmol/L Carbon Dioxide 24 (22-32) mmol/L BUN 42 H (7-17) mg/dL Creatinine 1.20 H (0.52-1.04) mg/dL Estimated GFR 42.8 L (>60) mL/min BUN/Creatinine Ratio 35.0 H (6-22) Glucose 102 (80-110) mg/dL Lactate (0.7-2.1) mmol/L Calcium 8.9 (8.4-10.2) mg/dL Total Bilirubin 0.7 (0.2-1.3) mg/dL AST 33 (14-36) IU/L ALT 15 (<35) IU/L Alkaline Phosphatase 115 (38-126) U/L Total Protein 7.6 (6.3-8.2) g/dL Albumin 3.5 (3.5-5.0) g/dL Globulin 4.1 (1.7-4.1) g/dL Albumin/Globulin Ratio 0.9 L (1.0-2.8) Lipase 206 (23-300) U/L Stl C. cayetanensis PCR (Not Detect) Stool Rotavirus (PCR) (Not Detect) Stool Adenovirus (PCR) (Not Detect) Stool Astrovirus (PCR) (Not Detect) Stool Cryptosporidium PCR (Not Detect) Stl E.coli Shiga Tox PCR (Not Detect) St Sh/Enteroin Ecoli PCR (Not Detect) Stool E coli O157 PCR Stl Enterotoxigenic E PCR (Not Detect) Stool EPEC (PCR) (Not Detect) Stl E. histolytica PCR (Not Detect) Stool Giardia Lamblia PCR (Not Detect) Stool Sapovirus (PCR) (Not Detect) Stl P. shigelloides PCR (Not Detect) St Y.enterocolitica PCR (Not Detect) Stool Vibrio (PCR) (Not Detect) Stl Vibrio cholerae PCR (Not Detect) Stl Enteroaggr Ecoli PCR (Not Detect) Stl Norovirus GI/GII PCR (Not Detect) Campylobacter (PCR) (Not Detect) C. difficile Tox (PCR) (Not Detect) Salmonella (PCR) (Not Detect) 09/26/19 09/27/19 Range/Units 10:55 13:17 WBC (4.5-11.0) X10^3/uL RBC (4.0-5.2) X10^6/uL Hgb (12.0-16.0) g/dL Hct (36-46) % MCV (80-100) fL MCH (26-34) PG MCHC (30-36) % RDW (11.6-14.8) % Plt Count (150-400) X10^3/uL Neut % (Auto) (50-75) % Lymph % (Auto) (25-40) % [place] % (Auto) (3-14) % Eos % (Auto) (2-4) % Baso % (Auto) (0-2) % Neut # (Auto) (6909-8096) /uL Lymph # (Auto) (3413-7613) /uL [place] # (Auto) (0-900) /uL Eos # (Auto) (0-450) /uL Baso # (Auto) (0-100) /uL PT (10.1-12.7) SECONDS INR (0.9-1.3) APTT (26.4-36.2) SECONDS Sodium (137-145) mmol/L Potassium (3.4-5.1) mmol/L Chloride (98-107) mmol/L Carbon Dioxide (22-32) mmol/L BUN (7-17) mg/dL Creatinine (0.52-1.04) mg/dL Estimated GFR (>60) mL/min BUN/Creatinine Ratio (6-22) Glucose (80-110) mg/dL Lactate 1.7 (0.7-2.1) mmol/L Calcium (8.4-10.2) mg/dL Total Bilirubin (0.2-1.3) mg/dL AST (14-36) IU/L ALT (<35) IU/L Alkaline Phosphatase (38-126) U/L Total Protein (6.3-8.2) g/dL Albumin (3.5-5.0) g/dL Globulin (1.7-4.1) g/dL Albumin/Globulin Ratio (1.0-2.8) Lipase (23-300) U/L Stl C. cayetanensis PCR Not detected (Not Detect) Stool Rotavirus (PCR) Not detected (Not Detect) Stool Adenovirus (PCR) Not detected (Not Detect) Stool Astrovirus (PCR) Not detected (Not Detect) Stool Cryptosporidium PCR Not detected (Not Detect) Stl E.coli Shiga Tox PCR Not detected (Not Detect) St Sh/Enteroin Ecoli PCR Not detected (Not Detect) Stool E coli O157 PCR Not Reportable Stl Enterotoxigenic E PCR Not detected (Not Detect) Stool EPEC (PCR) Not detected (Not Detect) Stl E. histolytica PCR Not detected (Not Detect) Stool Giardia Lamblia PCR Not detected (Not Detect) Stool Sapovirus (PCR) Not detected (Not Detect) Stl P. shigelloides PCR Not detected (Not Detect) St Y.enterocolitica PCR Not detected (Not Detect) Stool Vibrio (PCR) Not detected (Not Detect) Stl Vibrio cholerae PCR Not detected (Not Detect) Stl Enteroaggr Ecoli PCR Not detected (Not Detect) Stl Norovirus GI/GII PCR Not detected (Not Detect) Campylobacter (PCR) Detected H (Not Detect) C. difficile Tox (PCR) Not detected (Not Detect) Salmonella (PCR) Not detected (Not Detect) MDM Narrative Medical decision making narrative: Case was discussed with myself. Patient is known to myself from prior ER visits. Patient labs were tested. We discussed g etting imaging but as we are unable to perform some the imaging family elected to wait and have final imaging tomorrow as scheduled rather the potentially have 2 exposures tired any contrast or potentially have the 2nd set of imaging deferred to a later time so has not received [id number] contrast studies. Patient was unable to give a stool sample department but was given order she'd an option to deliver it to the outpatient lab. Patient was feeling much better in the department after fluids. Discharge Plan Departure Patient Disposition: Home Clinical Impression: Decrease in appetite Discharge Date/Time: 09/26/19 14:25 Instructions: DI for Dehydration -- Adult Activity Restrictions/Additional Instructions: Thank you for entrusting me with your care today. As discussed, you have elected to wait to wait for the CT scan as scheduled in the coming week due to slightly declining renal function. You were given IV fluid as your labs showed you were dehydrated today. Please follow up with your primary care provider in the next week to discuss further testing if indicated. We have given you a stool sample collection kit, bring this to the lab when you can collect stool. Follow up with her primary care provider for results. Return emergency department for new or worsening symptoms such as chest pain, shortness of breath, syncope, severe abdominal pain, high fevers, or other concerns. Prescriptions: No Action LISINOPRIL (Zestril / Prinivil) 40 mg PO Q DAY Qty: 0 RF: 0 lorazepam [Ativan] 0.5 MG tablet 0.5 mg PO BIDP PRNQty: 15 RF: 0 citalopram 10 MG tablet 10 mg PO QDAY Qty: 0 RF: 0 POLYETHYLENE GLYCOL 3350 17 gm PO Qty: 0 RF: 0 amlodipine [Norvasc] 5 MG tablet 5 mg PO QDAY Qty: 0 RF: 0 metoprolol tartrate 25 MG tablet 12.5 mg PO BID Qty: 0 RF: 0 acetaminophen 160 MG/5 ML liquid 160 mg PO Q4HP PRNQty: 0 RF: 0 nystatin 100,000 UNIT/1 ML suspension 5 ml PO QID Qty: 360 RF: 1 Referrals: Akiko Temple MD [Primary Care Provider] -
[2019-09-26] MEDS: SODIUM CHLORIDE 0.9% 1,000 ML 1000 ML IV (12:31)
[2019-09-26 12:35] VITALS: BP 110/56; PULSE 69; RESP 14; O2SAT 97
[2019-09-26 13:30] VITALS: BP 116/51; PULSE 68; RESP 14; O2SAT 96
[2019-09-26 14:09] VITALS: BP 106/62; PULSE 71; RESP 19; O2SAT 96
[2019-09-27 14:52] LABS: Adenovirus F 40/41 Not Detected (Not Detect); Astrovirus Not Detected (Not Detect); Clostridium difficile toxin AB Not Detected (Not Detect); Cryptosporidium Not Detected (Not Detect); Cyclospora cayetanensis Not Detected (Not Detect); Entamoeba histolytica Not Detected (Not Detect); Enteroaggregative E.coli Not Detected (Not Detect); Enteropathogenic E.coli Not Detected (Not Detect); Enterotoxigenic E.coli It/st Not Detected (Not Detect); Giardia lamblia Not Detected (Not Detect); Norovirus GI/GII Not Detected (Not Detect); Plesiomonsa shigelloides Not Detected (Not Detect); Rotavirus A Not Detected (Not Detect); Salmonella Not Detected (Not Detect); Sapovirus Not Detected (Not Detect); Shiga-like toxin-prod E.coli Not Detected (Not Detect); Shigella/Enteroinvasive E.coli Not Detected (Not Detect); Vibrio Not Detected (Not Detect); Vibrio cholerae Not Detected (Not Detect); Yersinia enterocolitica Not Detected (Not Detect)
[2019-09-27 15:01] LABS: Campylobacter Detected (Not Detect)
== END 2019-09-26 14:25 | disposition home or self-care (01) ==
PROVIDERS: Emergency Medicine; Emergency Provider Nurse Practitioner; PCP Family Medicine
DX: R53.1 Weakness (principal); R10.84 Generalized abdominal pain; R19.7 Diarrhea, unspecified; I48.20 Chronic atrial fibrillation, unspecified; Z95.828 Presence of other vascular implants and grafts
CPT/HCPCS: 36415; 80053; 83605; 83690; 85025; 85610; 85730; 87507; 93005; 96360; 99284

== ENCOUNTER → 2019-10-04 12:36 | Outpatient (CLI) | payer MEDICARE, OTHER, SELFPAY ==
--- NOTE | 2019-10-04 12:53 | DI.CT.S_ITS ---
PROCEDURE: CT ANGIO CHEST ABDOMEN PELVIS INDICATIONS: Thoracoabdominal aortic aneurysm, without rupture TECHNIQUE: Precontrast 5 mm thick sections acquired from the lung apices to the iliac crests. After the administration of intravenous contrast, 2.5 mm thick sections again acquired from the lung apices to the iliac crests. Maximum intensity projection (MIP) oblique sagittal and coronal reformats were then acquired. For radiation dose reduction, the following was used: automated exposure control. COMPARISON: [facility], CT, CT ANGIO CHEST ABDOMEN PELVIS, 09/01/2019, 21:09. FINDINGS: Image quality: Excellent. AORTA: No evidence of aneurysmal dilatation of the thoracic aorta. No dissection or significant stenosis. A stent graft within the inferior aspect of the thoracic aorta is present, which is patent. Stent graft extends into the abdominal aorta, and is patent. An abdominal aortic aneurysm is present, as before, with a current maximal short axis diameter of roughly 55 mm (previously 56 mm). There is no evidence of opacification of the aneurysm sac. CHEST: Lungs and pleura: No acute airspace opacities. No change in scarring within the superior segment right lower lobe. No pleural effusions or pneumothorax. Central and peripheral airways are patent and normal in caliber. Mediastinum: Heart size is enlarged. There is calcification of the coronary vasculature. No pericardial effusion. No mediastinal or hilar adenopathy by size criteria. Central pulmonary arteries are normal in size. Esophagus is normal in caliber. No hiatal hernias. Bones and chest wall: No axillary adenopathy by size criteria. Thyroid gland demonstrates low-density foci within the right lobe measuring roughly 10 mm diameter. No suspicious bony lesions. No vertebral body compression fractures. ABDOMEN: Vasculature: There are stents within the celiac and superior mesenteric arteries, which are grossly patent as visualized. Bilateral renal artery stents are present which are grossly patent. Fractured guidewire fragment within the left interpolar kidney is present, as before. Solid organs: Liver is normal in size. Several right hepatic lobe cysts are present, as before. Gallbladder is within normal limits. Biliary system is non dilated. Pancreas enhances normally. Spleen is normal in size and enhancement. No adrenal nodules. The right kidney is within normal limits. There is a left subcapsular perinephric hematoma, as before, which demonstrates a maximal short axis of roughly 52 mm (previously 49 mm previously). However, the density of the hematoma has decreased, consistent with nonacute hemorrhage. There is compression of the left renal parenchyma, as before. Peritoneum and bowel: No free fluid or air. Bowel loops are normal in caliber and wall thickness. Normal appendix. Nodes and vessels: No retroperitoneal or mesenteric adenopathy by size criteria. Inferior vena cava is normal in morphology. Miscellaneous: No ventral hernias. PELVIS: Genitourinary: Bladder wall thickness is normal. Miscellaneous: No inguinal hernias or adenopathy. No ventral hernias. Bones: No suspicious bony lesions. Right hip arthroplasty has been performed. No vertebral body compression fractures. IMPRESSION: 1. No significant change in size of abdominal aortic aneurysm, status post thoracoabdominal aortic stent graft placement. No evidence of endoleak. 2. 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 3. Coronary artery disease. 4. No change in right thyroid nodules, which could be further assessed with ultrasound, if clinically indicated. Dictated by: Sally Bond M.D. on 10/04/2019 at 15:09 Approved by: Sally Bond M.D. on 10/04/2019 at 15:23
== END ==
PROVIDERS: PCP Family Medicine; Visit Provider Family Medicine
DX: I71.6 Thoracoabdominal aortic aneurysm, without rupture (principal); I51.7 Cardiomegaly; K76.89 Other specified diseases of liver; I25.10 Atherosclerotic heart disease of native coronary artery without angina pectoris; E04.2 Nontoxic multinodular goiter; S37.01 Minor contusion of kidney
CPT/HCPCS: 71275; 74174; Q9967

== ENCOUNTER 2020-02-20 07:10 | Emergency (ER) | payer MEDICARE, OTHER, SELFPAY ==
[2020-02-20] VITALS (22 sets, daily range): BP systolic 117–209; BP diastolic 68–98; PULSE 57–90; RESP 15–28; TEMP 36.4; O2SAT 92–99; BMI 19.1
--- NOTE | 2020-02-20 07:16 | DI.RAD.S_ITS ---
PROCEDURE: XR CHEST 1V INDICATIONS: stroke TECHNIQUE: One view of the chest was acquired. COMPARISON: 10/19/15. FINDINGS: Surgical changes and devices: Minimal endovascular repair of the thoracoabdominal aorta and SMA. Lungs and pleura: Lungs are clear. No pleural effusions or pneumothorax. Mediastinum: Mediastinal contours appear normal. Heart size is normal. Bones and chest wall: No suspicious bony lesions. Overlying soft tissues appear unremarkable. IMPRESSION: No evidence acute pulmonary process. Dictated by: Florin Jaquez M.D. on 02/20/2020 at 6:50 Approved by: Florin Jaquez M.D. on 02/20/2020 at 6:52
--- NOTE | 2020-02-20 07:16 | DI.CT.S_ITS ---
PROCEDURE: CT HEAD/BRAIN WO CON INDICATIONS: code stroke: right hemiplegia, TPA candidate TECHNIQUE: Noncontrast 4.5 mm thick angled axial sections acquired from the foramen magnum to the vertex, with coronal and sagittal reformats. For radiation dose reduction, the following was used: automated exposure control, adjustment of mA and/or kV according to patient size. COMPARISON: [facility], CT, HEAD WITHOUT CONTRAST, 05/02/2017, 19:25. FINDINGS: Image quality: Excellent. CSF spaces: Basal cisterns are patent. No extra-axial fluid collections. The ventricles are symmetric in size and shape. Brain: No intracranial bleeds or masses. 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 There is cerebral volume loss for age, with resultant ventricular and sulcal prominence. There are periventricular and deep white matter chronic small vessel ischemic changes. There is intracranial internal carotid artery atherosclerosis. Skull and face: Calvarium and visualized facial bones appear intact, without suspicious lesions. Sinuses: Visualized sinuses and mastoids are clear. IMPRESSION: No acute intracranial findings or interval change Findings were personally telephoned and discussed with Dr. Miller in the emergency department at the 0737 hours on 02/20/20. Dictated by: Wes Tucker M.D. on 02/20/2020 at 7:35 Approved by: Wes Tucker M.D. on 02/20/2020 at 7:40
--- NOTE | 2020-02-20 07:20 | ED_ITS ---
HPI - Neuro Symptoms/Deficit General Chief Complaint: Neuro Symptoms/Deficit Stated Complaint: Stroke Time Seen by Provider: 02/20/20 07:15 History of Present Illness HPI Narrative: CC: Slurred speech, right facial droop, right hemiparesis. HPI: The patient was last known to be while at approximately 6:00 a.m. in the morning. The patient woke up at 5:00 a.m. in the morning and was outside putting cushions and pillows on lawn furniture. The patient slipped and fell injuring her right wrist. Her noticed that she had a little bit of slurred speech but did not think much of it. The patient then later developed weakness of her right arm, some slight confusion and more slurred speech that he called EMS. EMS transported the patient to the emergency department stating sydnee t the patient had slurred speech, right facial droop, right arm drift. The they activated the stroke protocol. The patient has an allergy to IV dye contrast and has a history of questionable gastric cancer with resection of her stomach according to the paramedics. The patient was sent immediately for a noncontrast CT of her head. The radiologist called and stated that the patient did not have any intracranial hemorrhage. The patient has not had any recent fall or injury. Related Data Home Medications Medication Instructions Recorded Confirmed LISINOPRIL (Zestril / Prinivil) 40 mg PO Q DAY #0 09/02/07 POLYETHYLENE GLYCOL 3350 17 gm PO #0 09/20/16 acetaminophen 160 mg PO Q4HP PRN #0 09/20/16 amlodipine [Norvasc] 5 mg PO QDAY #0 09/20/16 citalopram 10 mg PO QDAY #0 09/20/16 metoprolol tartrate 12.5 mg PO BID #0 09/20/16 Previous Rx's Medication Instructions Recorded lorazepam [Ativan] 0.5 mg PO BIDP PRN #15 tab 07/15/16 nystatin 5 ml PO QID #360 ml 05/06/17 Allergies Allergy/AdvReac Type Severity Reaction Status Date / Time atenolol [ATENOLOL] Allergy Severe RESP Verified 09/26/19 11:01 DISTRESS Avbnkva-Blq-Ere Reductase Allergy Severe RESP Verified 09/26/19 11:01 Inhibitor DISTRESS [CJIINVI-VYI-INR REDUCTASE INHIBITOR] levofloxacin [From LEVAQUIN] Allergy Intermediate swollen Verified 09/26/19 11:01 tongue sertraline [From ZOLOFT] Allergy Mild UNSURE Verified 09/26/19 11:01 Iodine and Iodide Containing Allergy Verified 09/26/19 11:01 Produc Review of Systems Review of Systems Narrative: REVIEW OF SYSTEMS: CONSTITUTIONAL: No fall or injury no fever chills or sweats. NEUROLOGICAL: Slurred speech, right facial droop, right hemiparesis, no headache decreased sensation in her right arm and right leg EENT: No sore throat or difficulty in swallowing CARDIO-PULMONARY: No racing of her heart chest pain cough shortness of breath HEMOTOLOGICAL: No anticoagulation other than aspirin, no bleeding or bruising GASTROINTESTINAL: No abdominal pain, no nausea vomiting diarrhea GENITAL URINARY: No urinary symptoms. MUSCULOSKELETAL/ RHEUMATOLOGICAL: The patient denies any back neck pain. She denies any pain or discomfort anywhere DERMATOLOGICAL: No skin rash hives bruising or itching Patient History Surgical History S/P total hip arthroplasty (Acute) Social History Smoking Status: Never smoker Smoking Status: Never smoker Substance Use Type: does not use Exam Narrative Exam Narrative: PHYSICAL EXAM: CONSTITUTIONAL: Awake, Alert, Oriented, Coherent, Cooperative in acute distress. HEAD: AT/NC EENT: PERRL, no nystagmus the patient has difficulty in looking towards the right. She appears to have a right homonymous hemianopsia EARS:No drainage from the ears, Tympanic membranes intact bilaterally, clear EAC NOSE:No epistaxis or nasal drainage MOUTH:Oral mucosa is moist and pink, posterior pharynx is without erythema or exudate. The patient has weakness in closing her right eye, she is able to move both sides of her forehead. The patient has flattening of the lower right face with a [place] could smile and unable to move the corner of her right mouth. NECK: Supple, no obvious JVD, Trachea is midline without stridor, no palpable LN. SPINE: Palpationof the cervical, Thoracic, Lumbar or Sacral spine reveals no gross deformity or tenderness. No CVA tenderness. THORAX: No deformity, retractions, chest wall tenderness. LUNGS: Clear, symmetrical breath sounds without respiratory distress. HEART: Normal heart tones, regular rhythm and rate without murmur. ABDOMEN: Soft, non-tender, without guarding, rebound, rigidity or palpable mass. EXTREMITIES: No edema, deformity, tenderness or cyanosis. SKIN: No rash, bruising, petechiae or purpura. NEURO: Awake, alert, oriented, conversive, cranial nerves 2-12 except for the right 7th nerve appear to be intact. The patient is unable to smile with flattening of her right face. She is able to move both sides of her forehead. She has difficulty with her right lateral gaze and visual field. The patient has decreased sensation in her right arm and right leg. She is unable to hold her right arm up against gravity and she does not recognize her right arm. She is able to name to the objects placed in front of her. She is able to hold both legs against gravity. Reflexes are 1+ and symmetrical. The patient's initial NIH stroke scale was 15. ( See initial NIH Stroke Scale) Initial Vital Signs Initial Vital Signs: Vital Signs Pulse Rate 58 L 02/20/20 07:18 Respiratory Rate 26 H 02/20/20 07:18 Blood Pressure 152/68 H 02/20/20 07:18 Pulse Oximetry 97 02/20/20 07:18 Scores NIH Stroke Scale Level of Conciousness: Not alert, but arousable by minor stim to obey, answer or respond Ask month/age: Answers one question correctly, intubated follow commands Open/close eyes, close hand: Performs one task correctly Best gaze horizontal: Partial gaze palsy, can be overcome by finger tracking, head turning Visual taylor: Partial hemianopia Facial palsy: Minor paralysis, flattened nasolabial fold, asymmetry on smiling Left arm drift: No drift for full 10 sec Right arm drift: No effort against gravity Left leg drift: No drift for full 10 sec Right leg drift: No drift for full 10 sec Limb ataxia: Present in one limb Sensory on face/arms/legs: Mild to moderate sensory loss, can tell touch Best language: Mild to moderate, slurs some words Dysarthria: Mild to mod,some slurring Extinction or inattention: Profound facundo-inattention. Does not recognize own hand, one side Total NIH Stroke scale score: 15 Course Course Course Narrative: 0739: Radiology called and stated that the patient's CT scan of her head is negative. Will discuss with us [place] neurologist how to proceed. Her NIH stroke scale is 15. The patient has an allergy to IV dye. 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 She also has a history of gastric cancer that was resected. The patient had a gastrectomy performed in 2015 for cancer of her stomach. In July of 2019 the patient had a suprarenal aortic stent with multiple tributaries arterial branches placed for a super renal aneurysm. 0747: Along with neurologist at [facility] performed a repeat neurological exam and NIH stroke scale using telemedicine. The patient's NIH stroke scale had significantly improved. However she was still having a stroke. 0814: both Dr. Oneal and myself explained the risk to the patient and her . They were informed that 4% developed varying degrees of complications from the administration of the thrombolytics. They were informed that she could bleed from any location in her body including her abdomen. She was informed that she could bleed in her brain and that the bleeding could not stop and that she could end up dying as a complication from the medication. They were informed that this is a rare complication but it does occur. They were informed that 20-40% of the time the medication may significantly resolved the stroke. The patient and her both understood the risks and agreed to the administration of the Altace. The medication was ordered and at 0829: The a bolus Altace was administered. Dr. Griffith called back and requested that we premedicate the patient and obtain a CTA of her head and neck. She preferred a stat MRA if we could obtain it. I discussed this with MRA and they proceeded to order and perform the MRA. 0854: I discussed the patient with , the contract runner at [facility] who advised me to repeat the NIH stroke scale after she has received the tPA and the MRA is completed and call him back. He stated that as long as we have an ICU here at [facility] and the patient does not have an occluded vessel requiring vascular radiological intervention the patient may not need to be transferred. 0942: The results of the patient's MRA remain pending. Review of the patient's chest x-ray reveals no acute cardiopulmonary pathology. The patient's noncontrast CT scan was negative for any acute cardiopulmonary pathology. While the patient was receiving tPA her blood pressure went up over 200 torr. She was administered 10 mg of hydralazine IV and now her blood pressure is 167/70. 0950: The patient was re-evaluated since that tPA has been administered to the patient. She has stuttering neurological findings. The patient denies any pain anywhere. She denies any headache chest pain belly pain nausea or dizziness. 1000: The patient is in MRA at the present time. Prior to the MRA and after the tPA had been completed the repeat NIH stroke score was 12. 11:10: The patient's MRI of the brain was a limited nondiagnostic study. Patient unable to tolerate the examination. Age-related volume loss and small vessel ischemic change. No diffusion-weighted sequence obtained. Cannot rule out acute stroke. Brain MR angiogram: Nondiagnostic study secondary to extensive patient motion artifact. Neck MR angiogram: Not performed secondary to patient's inability to tolerate the examination. The patient will be sedated with Ativan and since the patient has been premedi cated with Benadryl and Solu-Medrol a CT a of her head and neck will be obtained. Her repeat NIH stroke scale is 9-10. [facility] has been updated. 1215: I discussed the patient with the hospitalist Dr. Archuleta who states that they do not keep stroke patients that have received tPA in the ICU here. 1240: The patient's CT a reveals 1. no evidence of an acute stroke, hemorrhage or mass. 2. Age-related volume loss and mild small vessel ischemic changes. 3. Unremarkable CTA of the head. No aneurysms, stenosis, occlusions, or filling defect noted. 4. Widely patent internal carotids. 5. Mild central lobular emphysema. 6. Sub solid pulmonary nodule in the superior segment of the right lower lobe is incompletely imaged. Consider non emergent CT chest to evaluate for stability or growth. will call [facility]. Dr. Archuleta states that they do not admit stroke patients who have received tPA here to the ICU. 1300: The nurse informed me that the patient's blood pressure increased to 2 . She has been administered an additional 10 mg of hydralazine. The monitor revealed that the patient was in atrial fib. EKG was obtained to confirm this and the EKG obtained on February 19 at 12:5 5:23 a.m. revealed atrial fibrillation with a ventricular rate of 83. Rate is controlled. QRS is 88 milliseconds. QTC is 444 milliseconds within normal limits. [place] is normal. There are nonspecific ST segment changes. The patient has T-wave inversions in V1 with QS waves in leads V1 V2 suggestive of a septal infarct age indeterminate. There are no diagnostic ST segment changes to suggest ischemia or injury at this time. I spoke with the contract runner Dr. Florian at [facility] who has accepted the patient being transferred to their institution. Orders Ordered: ED Orders 02/20/20 07:16 CT head/brain wo con Stat XR chest 1V Stat EKG-12 Lead Stat 02/20/20 07:29 Complete Blood Count AUTO DIFF Stat Comprehensive Metabolic Panel Stat Erythrocyte Sedimentation Rate Stat Partial Thromboplastin Time Stat Prothrombin Time INR Stat Troponin I Stat 02/20/20 08:32 MR angio head wo con Stat 02/20/20 09:28 Urinalysis and Microscopic Stat Urine Culture Stat 02/20/20 11:22 CT angio head and neck Stat Discontinued Medications Alteplase, Recombinant (Activase) 4.3 mg 0.09 mg/kg (4.3 mg) IV NOW ONE Stop: 02/20/20 08:16 Last Admin: 02/20/20 08:24 Dose: 4.3 mg Documented by: SOLIS Alteplase, Recombinant (Activase) 38.4 mg 0.81 mg/kg (38.4 mg) IV NOW ONE Stop: 02/20/20 08:16 Last Admin: 02/20/20 08:27 Dose: 38.4 mg Documented by: SOLIS Diphenhydramine HCl (Benadryl) 50 mg IV NOW ONE Stop: 02/20/20 08:36 Last Admin: 02/20/20 08:41 Dose: 50 mg Documented by: SOLIS Hydralazine HCl (Apresoline) 10 mg IV NOW ONE Stop: 02/20/20 09:17 Last Admin: 02/20/20 09:19 Dose: 10 mg Documented by: SOLIS Hydralazine HCl (Apresoline) 10 mg IV NOW ONE Stop: 02/20/20 12:56 Last Admin: 02/20/20 12:59 Dose: 10 mg Documented by: SOLIS Sodium Chloride (Normal Saline 0.9%) 1,000 mls @ 1,000 mls/hr IV BOLUS ONE Stop: 02/20/20 09:34 Last Infusion: 02/20/20 09:50 Dose: 0 mls/hr Documented by: Admin: 02/20/20 08:43 Dose: 1,000 mls/hr Documented by: SOLIS Lorazepam (Ativan) 2 mg IV NOW ONE Stop: 02/20/20 11:23 Last Admin: 02/20/20 11:33 Dose: 2 mg Documented by: SOLIS Methylprednisolone (Solu-Medrol 125 Mg Vial) 125 mg IV NOW ONE Stop: 02/20/20 08:36 Last Admin: 02/20/20 08:40 Dose: 125 mg Documented by: SOLIS Vital Signs Vital signs: Vital Signs - 8 hr 02/20/20 07:32 02/20/20 07:45 02/20/20 08:03 Pulse Rate 57 L 58 L 58 L Respiratory Rate 26 H 24 25 H Blood Pressure Blood Pressure [Left Arm] 117/70 127/72 170/71 H Pulse Oximetry 98 98 99 02/20/20 08:15 02/20/20 08:31 02/20/20 08:45 Pulse Rate 57 L 57 L 61 Respiratory Rate 24 25 H 24 Blood Pressure Blood Pressure [Left Arm] 174/74 H 176/74 H 165/79 H Pulse Oximetry 96 93 93 02/20/20 09:00 02/20/20 09:19 02/20/20 09:30 Pulse Rate 65 62 81 Respiratory Rate 26 H 25 H Blood Pressure 203/84 H Blood Pressure [Left Arm] 195/77 H 167/70 H Pulse Oximetry 92 95 02/20/20 10:30 02/20/20 10:39 02/20/20 11:00 Pulse Rate 70 67 71 Respiratory Rate 23 25 H Blood Pressure 163/73 H Blood Pressure [Left Arm] 163/73 H 154/70 H Pulse Oximetry 97 97 02/20/20 11:30 02/20/20 11:53 02/20/20 12:45 Pulse Rate 75 78 90 Respiratory Rate 25 H 20 22 Blood Pressure Blood Pressure [Left Arm] 159/74 H 162/74 H 209/98 H Pulse Oximetry 97 96 96 02/20/20 12:59 02/20/20 13:00 02/20/20 13:30 Pulse Rate 90 75 89 Respiratory Rate 28 H 24 Blood Pressure 209/98 H Blood Pressure [Left Arm] 164/72 H 153/70 H Pulse Oximetry 98 98 02/20/20 14:00 02/20/20 14:30 Pulse Rate 88 85 Respiratory Rate 20 Blood Pressure Blood Pressure [Left Arm] 169/74 H 180/76 H Pulse Oximetry 99 98 MDM - Neuro Symptoms/Deficit Medical Records Attestation: I reviewed the patient's medical records. Lab Data Attestation: I reviewed the patient's lab results. Result diagrams: 02/20/20 07:29 02/20/20 07:29 Labs: Lab Results 02/20/20 02/20/20 02/20/20 Range/Units 07:29 07:29 07:29 WBC 8.4 (4.5-11.0) X10^3/uL RBC 3.53 L (4.0-5.2) X10^6/uL Hgb 11.2 L (12.0-16.0) g/dL Hct 33.0 L (36-46) % MCV 93.3 (80-100) fL MCH 31.7 (26-34) PG MCHC 33.9 (30-36) % RDW 12.7 (11.6-14.8) % Plt Count 232 (150-400) X10^3/uL Neut % (Auto) 68.5 (50-75) % Lymph % (Auto) 19.5 L (25-40) % [place]utter % (Auto) 9.5 (3-14) % Eos % (Auto) 1.8 L (2-4) % Baso % (Auto) 0.7 (0-2) % Neut # (Auto) 5800 (7268-8382) /uL Lymph # (Auto) 1600 (2665-3534) /uL Sutter # (Auto) 800 (0-900) /uL Eos # (Auto) 100 (0-450) /uL Baso # (Auto) 100 (0-100) /uL ESR 32 H (0-20) MM/HR PT 11.0 (10.1-12.7) SECONDS INR 1.0 (0.9-1.3) APTT 36 D (26.4-36.2) SECONDS Sodium 143 (137-145) mmol/L Potassium 4.2 (3.4-5.1) mmol/L Chloride 108 H (98-107) mmol/L Carbon Dioxide 26 (22-32) mmol/L BUN 16 (7-17) mg/dL Creatinine 0.69 (0.52-1.04) mg/dL Estimated GFR > 60.0 (>60) mL/min BUN/Creatinine Ratio 23.2 H (6-22) Glucose 84 (80-110) mg/dL Calcium 9.4 (8.4-10.2) mg/dL Total Bilirubin 0.6 (0.2-1.3) mg/dL AST 27 (14-36) IU/L ALT 15 (<35) IU/L Alkaline Phosphatase 82 (38-126) U/L Troponin I (0.01-0.034) ng/mL Total Protein 6.9 (6.3-8.2) g/dL Albumin 3.7 (3.5-5.0) g/dL Globulin 3.2 (1.7-4.1) g/dL Albumin/Globulin Ratio 1.2 (1.0-2.8) Urine Color Urine Appearance Urine pH (4.5-8.0) Ur Specific [place] (1.000-1.035) Urine Protein (Negative) Urine Glucose (UA) (Negative) g/dL Urine Ketones (NEGATIVE) Urine Occult Blood (Negative) Urine Nitrate (Negative) Urine Bilirubin (NEGATIVE) Urine Urobilinogen (0.2) E.U./dL Ur Leukocyte Esterase (NEGATIVE) Urine RBC (0-5/HPF) Urine WBC (0-5/HPF) Urine Bacteria (None) Ur Culture Indicated? 02/20/20 02/20/20 Range/Units 07:29 09:28 WBC (4.5-11.0) X10^3/uL RBC (4.0-5.2) X10^6/uL Hgb (12.0-16.0) g/dL Hct (36-46) % MCV (80-100) fL MCH (26-34) PG MCHC (30-36) % RDW (11.6-14.8) % Plt Count (150-400) X10^3/uL Neut % (Auto) (50-75) % Lymph % (Auto) (25-40) % Sutter % (Auto) (3-14) % Eos % (Auto) (2-4) % Baso % (Auto) (0-2) % Neut # (Auto) (0538-5278) /uL Lymph # (Auto) (4731-6999) /uL Sutter # (Auto) (0-900) /uL Eos # (Auto) (0-450) /uL Baso # (Auto) (0-100) /uL ESR (0-20) MM/HR PT (10.1-12.7) SECONDS INR (0.9-1.3) APTT (26.4-36.2) SECONDS Sodium (137-145) mmol/L Potassium (3.4-5.1) mmol/L Chloride (98-107) mmol/L Carbon Dioxide (22-32) mmol/L BUN (7-17) mg/dL Creatinine (0.52-1.04) mg/dL Estimated GFR (>60) mL/min BUN/Creatinine Ratio (6-22) Glucose (80-110) mg/dL Calcium (8.4-10.2) mg/dL Total Bilirubin (0.2-1.3) mg/dL AST (14-36) IU/L ALT (<35) IU/L Alkaline Phosphatase (38-126) U/L Troponin I < 0.012 (0.01-0.034) ng/mL Total Protein (6.3-8.2) g/dL Albumin (3.5-5.0) g/dL Globulin (1.7-4.1) g/dL Albumin/Globulin Ratio (1.0-2.8) Urine Color Yellow Urine Appearance Sl cloudy Urine pH 7.0 (4.5-8.0) Ur Specific [place] 1.010 (1.000-1.035) Urine Protein Negative (Negative) Urine Glucose (UA) Negative (Negative) g/dL Urine Ketones Negative (NEGATIVE) Urine Occult Blood Negative (Negative) Urine Nitrate Positive H (Negative) Urine Bilirubin Negative (NEGATIVE) Urine Urobilinogen 0.2 (0.2) E.U./dL Ur Leukocyte Esterase 1+ H (NEGATIVE) Urine RBC None seen (0-5/HPF) Urine WBC 1-5/hpf (0-5/HPF) Urine Bacteria Many (>30) H (None) Ur Culture Indicated? Specimen cultured Point of Care Testing Glucose POC 87 ECG Data Attestation: I personally reviewed and interpreted this ECG as follows: Interpretation: The patient's EKG obtained on February 19 at 7:26 a.m. reveals a sinus bradycardia with ventricular rate of 57. Her [place] interval appears normal at 192 milliseconds QRS duration is 88 milliseconds QTC is normal at 393 milliseconds. [place] is normal. The patient has a QS wave in leads V1 and V2 with inverted T-waves in V1 V2 suggestive of a septal infarct age undetermined. The the patient has no other acute diagnostic ST segment or T-wave changes to suggest ischemia or infarct. Her other ST segment changes are nonspecific. Discharge Plan Departure Patient Disposition: [facility] Clinical Impression: Atrial fibrillation, new onset, Facial weakness, Essential hypertension Cerebrovascular accident Qualifiers: CVA mechanism: unspecified Qualified Code(s): I63.9 - Cerebral infarction, unspecified Stroke due to embolism Qualifiers: Precerebral and cerebral artery: unspecified cerebral artery Qualified Code(s): I63.40 - Cerebral infarction due to embolism of unspecified cerebral artery Hemiparesis of right dominant side Qualifiers: Hemiparesis etiology: unspecified Qualified Code(s): G81.91 - Hemiplegia, unspecified affecting right dominant side Prescriptions: No Action LISINOPRIL (Zestril / Prinivil) 40 mg PO Q DAY Qty: 0 RF: 0 lorazepam [Ativan] 0.5 MG tablet 0.5 mg PO BIDP PRNQty: 15 RF: 0 citalopram 10 MG tablet 10 mg PO QDAY Qty: 0 RF: 0 POLYETHYLENE GLYCOL 3350 17 gm PO Qty: 0 RF: 0 amlodipine [Norvasc] 5 MG tablet 5 mg PO QDAY Qty: 0 RF: 0 metoprolol tartrate 25 MG tablet 12.5 mg PO BID Qty: 0 RF: 0 acetaminophen 160 MG/5 ML liquid 160 mg PO Q4HP PRNQty: 0 RF: 0 nystatin 100,000 UNIT/1 ML suspension 5 ml PO QID Qty: 360 RF: 1 Referrals: Akiko Temple MD [Primary Care Provider] -
[2020-02-20 07:50] LABS: Add Manual Diff / Slide Review NO; Basophils Absolute Auto 100 /uL (0-100); Basophils Percent Auto 0.7 % (0-2); Eosinophils Absolute Auto 100 /uL (0-450); Eosinophils Percent Auto 1.8 % (2-4); Hemoglobin 11.2 g/dL (12.0-16.0); Lymphocytes Absolute Auto 1600 /uL (1100-4500); Lymphocytes Percent Auto 19.5 % (25-40); Mean Corpuscular HGB Conc 33.9 % (30-36); Mean Corpuscular Hemoglobin 31.7 PG (26-34); Mean Corpuscular Volume 93.3 fL (80-100); Monocytes Absolute Auto 800 /uL (0-900); Monocytes Percent Auto 9.5 % (3-14); Neutrophils Absolute Auto 5800 /uL (1500-7000); Neutrophils Percent Auto 68.5 % (50-75); Platelet Count 232 X10^3/uL (150-400); Red Blood Cell Count 3.53 X10^6/uL (4.0-5.2); Red Cell Distribution Width 12.7 % (11.6-14.8); White Blood Cell Count 8.4 X10^3/uL (4.5-11.0)
--- NOTE | 2020-02-20 07:53 | PC.NURSE ---
0751 hrs: Pt right arm weakness significantly improved. Pt recognizing NIH Stroke Scale Word List.
[2020-02-20 08:00] LABS: PTT Partial Thromboplastin Tim 36 SECONDS (26.4-36.2)
[2020-02-20 08:02] LABS: Alanine Aminotransferase 15 IU/L (<35); Albumin 3.7 g/dL (3.5-5.0); Albumin Globulin Ratio 1.2 (1.0-2.8); Alkaline Phosphatase 82 U/L (38-126); Aspartate Aminotransferase 27 IU/L (14-36); BUN Creatinine Ratio 23.2 (6-22); Bilirubin Total 0.6 mg/dL (0.2-1.3); Blood Urea Nitrogen 16 mg/dL (7-17); Calcium 9.4 mg/dL (8.4-10.2); Carbon Dioxide 26 mmol/L (22-32); Chloride 108 mmol/L (98-107); Estimated Glomerular Filt Rate > 60.0 mL/min (>60); Globulin 3.2 g/dL (1.7-4.1); Glucose 84 mg/dL (80-110); HEMOLYSIS < 15 (0-50); Potassium 4.2 mmol/L (3.4-5.1); Sodium 143 mmol/L (137-145); Total Protein 6.9 g/dL (6.3-8.2)
[2020-02-20 08:13] LABS: Troponin I < 0.012 ng/mL (0.01-0.034)
[2020-02-20 08:20] LABS: Erythrocyte Sedimentation Rate 32 MM/HR (0-20)
[2020-02-20] MEDS: ALTEPLASE 100 MG VIAL IV (08:24)
[2020-02-20] MEDS: ALTEPLASE 100 MG VIAL 38.4 MG IV (08:27)
--- NOTE | 2020-02-20 08:32 | DI.MRI.S_ITS ---
PROCEDURE: MR STROKE Pre- and post-contrast brain MRI, non-contrast brain MR angiogram, pre- and postcontrast neck MR angiogram INDICATIONS: stroke: right facial droop, right hemiparesis TECHNIQUE: Brain: Noncontrast axial T1 spin echo, axial T2 fast spin echo, sagittal and axial FLAIR, coronal T2 fast spin echo, axial gradient echo, axial diffusion and ADC through the brain. After the administration of contrast, axial 3D VIBE of the cranial vasculature and brain. Brain MRA: Non-contrast 3-D time of flight MR angiogram, with multiple fkqemaz-bejsdwsaw-xckncuneqe (MIP) reformats performed. Neck MRA: Axial and sagittal TruFISP through the neck. Coronal dynamic MR angiogram during administration of contrast in the arterial and venous phases, with 3-dimenstional jrrqcwm-wywgxwwvj-tdklnhblrf (MIP) reformats constructed from subtraction images. COMPARISON: None. FINDINGS: Image quality: Extensive patient motion artifact. Examination truncated without diffusion weighted imaging, with nondiagnostic angiographic imaging of the brain, and without angiographic imaging of the neck secondary to patient's inability to cooperate/tolerate the examination fully BRAIN: CSF spaces: Ventricles are normal in size and shape. Basal cisterns are patent. No extra-axial fluid collections. Brain: Extensive patient motion artifact. Sagittal FLAIR imaging and is of reasonable quality. Age-related volume loss and small vessel ischemic change. No diffusion weighted sequence successfully performed. Cannot exclude acute infarct. No obvious masses. Skull and face: Calvarial marrow signal is grossly normal. Orbits appear normal. Sinuses: Sinuses and mastoids are clear. BRAIN MR ANGIOGRAM: Nondiagnostic secondary to extensive patient motion artifact. Middle cerebral artery branches and proximal intracerebral artery branches cannot be evaluated. NECK MR ANGIOGRAM: Not performed. Patient unable to tolerate the examination. IMPRESSION: BRAIN MRI: Limited non-diagnostic study. Patient unable to tolerate the examination. Age-related volume loss and small vessel ischemic change. No diffusion weighted sequence obtained. Cannot rule out acute stroke. BRAIN MR ANGIOGRAM: Nondiagnostic study secondary to extensive patient motion artifact. NECK MR ANGIOGRAM: Not performed secondary to patient inability to tolerate the examination. Comment: Consider repeat study at a later date if clinically indicated. Dictated by: Florin Jaquez M.D. on 02/20/2020 at 9:35 Approved by: Florin Jaquez M.D. on 02/20/2020 at 9:43
[2020-02-20] MEDS: methylPREDNISolone 125 MG/2 ML VIAL IV (08:40)
[2020-02-20] MEDS: diphenhydrAMINE 50 MG/ML VIAL IV (08:41)
[2020-02-20] MEDS: SODIUM CHLORIDE 0.9% 1,000 ML 1000 ML IV (08:43)
[2020-02-20] MEDS: HYDRALAZINE 20 MG/ML VIAL 10 MG IV ×2 (09:19→12:59)
[2020-02-20 09:39] LABS: RBC Urine None Seen (0-5/HPF)
[2020-02-20 09:42] LABS: Appearance Urine UA SL CLOUDY; Bilirubin Urine UA NEGATIVE (NEGATIVE); Color Urine UA YELLOW; Glucose Urine UA NEGATIVE (Negative); Ketones Urine UA NEGATIVE (NEGATIVE); Leukocyte Esterase Urine UA 1+ (NEGATIVE); Nitrite Urine UA POSITIVE (Negative); Occult Blood Urine UA NEGATIVE (Negative); Protein Urine UA NEGATIVE (Negative); Urobilinogen Urine UA 0.2 E.U./dL (0.2)
[2020-02-20 09:53] LABS: Bacteria Urine Many (>30); Culture Indicated Urine Specimen Cultured; WBC Urine 1-5/HPF (0-5/HPF)
--- NOTE | 2020-02-20 11:22 | DI.CT.S_ITS ---
PROCEDURE: CT ANGIO HEAD AND NECK INDICATIONS: stroke with right hemiparesis, right facial weakness TECHNIQUE: Pre-contrast 4.5 mm thick sections acquired from the foramen magnum to the vertex. After the administration of intravenous contrast, 1 mm thick sections acquired from the aortic arch through the [place]. Post-contrast 4.5 mm thick sections then re-acquired from the foramen magnum to the vertex. 3-dimensional jsqnkeq-kmhebbutm-qgmrczougg (MIP) and/or volume rendering reformats were acquired of the central intracranial vasculature and neck separately. COMPARISON: CTA chest/abdomen dated 10/04/19, CTA chest/abdomen dated 09/01/19. FINDINGS: Image quality: Excellent. BRAIN: CSF spaces: Ventricles are normal in size and shape. Basal cisterns are patent. No extra-axial fluid collections. Brain: No midline shift. No intracranial bleeds or masses. Lopez-white matter interface appears intact. Age-related volume loss and mild vessel ischemic change. Skull and face: Calvarium and facial bones appear intact, without suspicious lesions. Orbits appear normal. Sinuses: Sinuses and mastoids are clear. HEAD CT ANGIOGRAPHY: Anterior circulation: Intracranial internal carotid arteries are normal in size and flow. The flow within the paired anterior cerebral arteries is normal and symmetric. The flow within the middle cerebral arteries is normal and symmetric. The anterior communicating artery is seen. No aneurysms are seen. Posterior circulation: Visualized portions of the vertebral arteries demonstrate normal caliber, and join to form a normal appearing basilar artery. Flow within the posterior cerebral arteries is normal and symmetric. No aneurysms are seen. NECK CT ANGIOGRAPHY: Carotid system: The great vessels demonstrate a conventional anatomy as they arise from the aortic arch. The origins of the common carotid arteries appear patent. The common carotid arteries demonstrate normal caliber and courses. The bifurcation regions are both widely patent. The internal carotid arteries demonstrate normal calibers and courses. Posterior circulation: The origins of the vertebral arteries both appear widely patent. The more superior extracranial portions of both vertebral arteries also demonstrate normal courses and calibers. They join to form a normal appearing basilar artery. Soft tissues: Visualized neck soft tissues demonstrate no suspicious abnormalities. Mild centrilobular emphysema. Subsolid pulmonary nodule, superior segment of right lower lobe, incompletely imaged. A similar density was present on the previous CTA chest dated 09/01/19 and 10/04/19. Bones: No suspicious bony lesions. Visualized cervical spine appears normally aligned. IMPRESSION: 1. No evidence acute stroke, hemorrhage, or mass. 2. Age-related volume loss and mild small vessel ischemic change. 3. Unremarkable CTA head. No aneurysm, stenosis, occlusion, or filling defect noted. 4. Widely patent internal carotids. 5. Mild centrilobular emphysema. 6. Subsolid pulmonary nodule in the superior segment of the right lower lobe is incompletely imaged. Consider nonemergent CT chest to evaluate for stability or growth. Any quantitative measurements of stenosis were performed using NASCET criteria. Dictated by: Florin Jaquez M.D. on 02/20/2020 at 11:21 Approved by: Florin Jaquez M.D. on 02/20/2020 at 11:31
[2020-02-20] MEDS: LORazepam 2 MG/ML INJ IV (11:33)
--- NOTE | 2020-02-20 15:16 | PC.NURSE ---
[address] Miller performed NIH Stroke Scale, Score 9. See Dr's note.
--- NOTE | 2020-02-22 18:17 | PC.NURSE ---
Rn from [facility] called to get results of COVID-19 test. I informed her that when we receive the results of the test we will fax it to them
[2020-02-23 15:21] LABS: COVID19 Sendout Not Detected (Not Detect)
== END 2020-02-20 15:10 | disposition short-term general hospital (02) ==
PROVIDERS: Emergency Provider Emergency Medicine; PCP Family Medicine
DX: I63.40 Cerebral infarction due to embolism of unspecified cerebral artery (principal); I63.9 Cerebral infarction, unspecified; G81.91 Hemiplegia, unspecified affecting right dominant side; I48.91 Unspecified atrial fibrillation; R53.1 Weakness; I10 Essential (primary) hypertension; Z11.59 Encounter for screening for other viral diseases; R00.1 Bradycardia, unspecified
CPT/HCPCS: 36415; 70450; 70496; 70498; 70544; 71045; 80053; 81001; 82962; 84484; 85025; 85610; 85651; 85730; 87077; 87086; 87186; 87635; 93005; 93010; 96374; 96375; 96376; 99285; 99291; 99292; J0360; J1200; J2060; J2930; J2997

== ENCOUNTER → 2020-03-15 12:10 | Outpatient (CLI) | payer MEDICARE, OTHER, SELFPAY ==
--- NOTE | 2020-03-15 | DI.RAD.S_ITS ---
PROCEDURE: XR RIBS RT MIN 3V W CXR 1V INDICATIONS: Right sided pain TECHNIQUE: 2 views of the right ribs were acquired, along with a single view chest. COMPARISON: [facility], CT, CT ANGIO CHEST ABDOMEN PELVIS, 10/04/2019, 12:38. [facility], CR, XR CHEST 1V, 02/20/2020, 7:35. FINDINGS: BB marker overlying the mid right lateral thorax. Surgical changes and devices: Thoracoabdominal aortic stents. Right breast surgical clips. Bones and chest wall: No acute fractures or dislocations. Prior right 3-5 rib fractures. Stable sclerotic focus in the right lateral 8th rib. Overlying soft tissues appear unremarkable. Lungs and pleura: No pleural effusions or pneumothorax. Lungs appear clear. Mediastinum: Mediastinal contours appear normal. Heart size is normal. IMPRESSION: No acute displaced right-sided rib fracture. Prior right-sided rib fractures. No acute cardiopulmonary abnormality. Dictated by: Mega Amezcua M.D. on 03/15/2020 at 12:54 Approved by: Mega Amezcua M.D. on 03/15/2020 at 12:59
== END ==
PROVIDERS: PCP Family Medicine; Referring Provider Family Medicine; Visit Provider Family Medicine
DX: R07.81 Pleurodynia (principal)
CPT/HCPCS: 71101

== ENCOUNTER 2020-03-24 17:55 | Observation (INO) | payer MEDICARE, OTHER, SELFPAY ==
[2020-03-24] VITALS (12 sets, daily range): BP systolic 154–174; BP diastolic 71–80; PULSE 58–97; RESP 15–43; TEMP 35.7–37.1; O2SAT 93–98; BMI 18.9
--- NOTE | 2020-03-24 18:11 | ED_ITS ---
HPI - Fall General Chief Complaint: Fall Stated Complaint: GLF,chest pain since fall,on eliquis Time Seen by Provider: 03/24/20 18:04 Source: patient and family () Mode of arrival: Ambulatory Limitations: no limitations History of Present Illness HPI Narrative: 84-year-old female. Prior history of CVA with right-sided deficits. Is on Eliquis. States she was getting up from a chair when she tripped over her right foot which she has had problems with since her stroke. She states she fell landed on her right side. She did not hit her head. No loss of consciousness. Was able to get up afterwards. Since that time she has had right-sided chest, upper abdomen pain. Has not tried anything for symptoms prior to arrival. Prior to the event did not have chest pain or lightheadedness and has not had these since. No problems breathing. No extremity injuries. Related Data Home Medications Medication Instructions Recorded Confirmed LISINOPRIL (Zestril / Prinivil) 10 mg PO Q DAY #0 09/02/07 03/24/20 POLYETHYLENE GLYCOL 3350 17 gm PO PRN PRN #0 09/20/16 03/24/20 amlodipine [Norvasc] 10 mg PO QDAY #0 09/20/16 03/24/20 metoprolol tartrate 12.5 mg PO BID #0 09/20/16 03/24/20 apixaban [Eliquis] 2.5 mg PO BID 03/24/20 03/24/20 Allergies Allergy/AdvReac Type Severity Reaction Status Date / Time atenolol [ATENOLOL] Allergy Severe RESP Verified 09/26/19 11:01 DISTRESS Ofzgyfp-Srm-Jvd Reductase Allergy Severe RESP Verified 09/26/19 11:01 Inhibitor DISTRESS [ZMTHQKH-MIQ-JBB REDUCTASE INHIBITOR] levofloxacin [From LEVAQUIN] Allergy Intermediate swollen Verified 09/26/19 11:01 tongue sertraline [From ZOLOFT] Allergy Mild UNSURE Verified 09/26/19 11:01 Iodine and Iodide Containing Allergy Verified 09/26/19 11:01 Produc Review of Systems Constitutional Constitutional: Denies fatigue, Denies fever(s), Denies frequent falls and Denies headache(s) Eyes Eyes: Denies blurry vision and Denies change in vision ENT Ears, Nose, Mouth, and Throat: Denies vertigo, Denies dizziness, Denies headache(s) and Denies neck pain Cardiovascular Cardiovascular: Reports chest pain (Right-sided), Denies rapid heart rate, Denies irregular heart rhythm, Denies lightheadedness and Denies dyspnea Respiratory Respiratory: Denies cough, Reports pain with cough and Denies dyspnea Gastrointestinal Gastrointestinal: Reports abdominal pain (Right upper abdomen), Denies change in bowel habits, Denies diarrhea, Denies nausea and Denies vomiting Genitourinary Genitourinary: Denies dysuria Genitourinary: Denies dysuria Musculoskeletal Musculoskeletal: Denies arthralgias, Denies back pain, Denies arthralgias, Denies limited range of motion, Denies myalgias and Denies neck pain Integumentary/Breasts Skin/Breast: Denies lesions and Denies rash Neurologic Neurologic: Denies abnormal speech, Denies behavioral changes, Denies confusion, Denies vertigo, Denies dizziness, Denies frequent falls and Denies headache(s) Psychiatric Psychiatric: Denies behavioral changes and Denies confusion Endocrine Endocrine: Denies fatigue Patient History Medical History Acute post-hemorrhagic anemia (Inactive) Anxiety (Inactive) Fracture of distal fibula (Inactive) Gastritis (Inactive) Hip dislocation, right (Inactive) Hypertension (Acute) Palpitations (Inactive) Posthemorrhagic anemia (Inactive) UTI (urinary tract infection) (Inactive) Surgical History S/P hip hemiarthroplasty (Inactive) S/P total hip arthroplasty (Acute) Social History household members: spouse Smoking Status: Never smoker alcohol intake: never Smoking Status: Never smoker Substance Use Type: does not use Exam Initial Vital Signs Initial Vital Signs: Vital Signs Pulse Rate 61 03/24/20 18:00 Blood Pressure 174/79 H 03/24/20 18:00 Pulse Oximetry 97 03/24/20 18:00 Const General: cooperative, comfortable, well developed and well groomed Limitations: mental status not altered HENWA Head: normal to inspection and normocephalic Ears: hearing grossly normal bilaterally Nose: external nose normal Face and sinus: normal facial exam Chest Chest: No crepitus and tenderness (Right-sided chest) Resp Effort & Inspection: normal respiratory effort Auscultation: clear to auscultation bilaterally Cardio Rate: regular rate Rhythm: regular rhythm GI Inspection: non-distended Palpation: soft, No firm and tender (Right-sided abdomen) Back/Spine/Pelvis Back: CVA tenderness right Skin Lesions: no lesions Rashes: no rashes Neuro General: patient alert, patient awake and patient oriented x3 Cognition: normal cognition Speech: speech normal Sensory Exam: no sensory deficits noted Extrem General: normal to inspection and capillary refill normal Psych Appearance: grossly normal and well kempt Scores GCS Temple coma scale eye opening: Spontaneous Temple coma scale verbal response: Orientated Malorie coma scale motor response: Obey commands Temple coma scale total score: 15 Course Orders Ordered: ED Orders 03/24/20 18:09 XR chest 1V Stat EKG-12 Lead Stat 03/24/20 18:22 CT chest abd pel w con Stat 03/24/20 18:45 Complete Blood Count AUTO DIFF Stat Comprehensive Metabolic Panel Stat Lipase Stat Partial Thromboplastin Time Stat Prothrombin Time INR Stat Troponin I Stat 03/24/20 21:01 Consult to General Surgery Stat 03/24/20 21:17 Consult to Physician Urgent 03/25/20 06:00 XR chest 1V Stat Basic Metabolic Panel Stat Complete Blood Count AUTO DIFF Stat Hydrocodone Bitart/Acetaminophen (Campbell 5/325) 1 tab PO Q4HR PRN PRN Reason: Pain, Mild (1-3) Amlodipine Besylate (Norvasc) 5 mg PO DAILY [facility] Melatonin (Melatonin) 9 mg PO BEDTIME [facility] Last Admin: 03/25/20 00:12 Dose: 9 mg Documented by: CHASAG Ondansetron HCl (Zofran) 4 mg IV Q4HR PRN PRN Reason: Nausea And Vomiting Discontinued Medications Hydrocodone Bitart/Acetaminophen (Campbell 5/325) 1 tab PO NOW ONE Stop: 03/24/20 20:27 Last Admin: 03/24/20 20:34 Dose: 1 tab Documented by: MMCFARL Diphenhydramine HCl (Benadryl) 25 mg IV NOW ONE Stop: 03/24/20 18:23 Last Admin: 03/24/20 18:36 Dose: 25 mg Documented by: SOLIS Methylprednisolone (Solu-Medrol 125 Mg Vial) 40 mg IV NOW ONE Stop: 03/24/20 18:23 Last Admin: 03/24/20 18:35 Dose: 40 mg Documented by: SOLIS Vital Signs Vital signs: Vital Signs - 8 hr 03/24/20 20:16 03/24/20 20:30 03/24/20 21:00 Pulse Rate 63 62 61 Respiratory Rate 21 20 17 Blood Pressure [Left Arm] 160/79 H 160/75 H 159/71 H Pulse Oximetry 95 94 93 03/24/20 21:30 03/24/20 22:00 Pulse Rate 61 59 L Respiratory Rate 17 15 Blood Pressure [Left Arm] 160/77 H 154/75 H Pulse Oximetry 93 93 MDM - Fall Lab Data Attestation: I reviewed the patient's lab results. Result diagrams: 03/24/20 18:45 03/24/20 18:45 Labs: Lab Results 03/24/20 03/24/20 03/24/20 Range/Units 18:45 18:45 18:45 WBC 7.4 (4.5-11.0) X10^3/uL RBC 3.81 L (4.0-5.2) X10^6/uL Hgb 12.1 (12.0-16.0) g/dL Hct 35.7 L (36-46) % MCV 93.8 (80-100) fL MCH 31.6 (26-34) PG MCHC 33.7 (30-36) % RDW 13.3 (11.6-14.8) % Plt Count 230 (150-400) X10^3/uL Neut % (Auto) 73.1 (50-75) % Lymph % (Auto) 10.5 L (25-40) % [place] % (Auto) 14.4 H (3-14) % Eos % (Auto) 1.2 L (2-4) % Baso % (Auto) 0.8 (0-2) % Neut # (Auto) 5400 (9571-8243) /uL Lymph # (Auto) 800 L (3584-6433) /uL [place] # (Auto) 1100 H (0-900) /uL Eos # (Auto) 100 (0-450) /uL Baso # (Auto) 100 (0-100) /uL PT 12.8 H (10.1-12.7) SECONDS INR 1.1 (0.9-1.3) APTT 40 H D (26.4-36.2) SECONDS Sodium 140 (137-145) mmol/L Potassium 3.2 L (3.4-5.1) mmol/L Chloride 105 (98-107) mmol/L Carbon Dioxide 31 (22-32) mmol/L BUN 15 (7-17) mg/dL Creatinine 0.58 (0.52-1.04) mg/dL Estimated GFR > 60.0 (>60) mL/min BUN/Creatinine Ratio 25.9 H (6-22) Glucose 128 H (80-110) mg/dL Calcium 9.5 (8.4-10.2) mg/dL Total Bilirubin 0.5 (0.2-1.3) mg/dL AST 119 H (14-36) IU/L ALT 76 H (<35) IU/L Alkaline Phosphatase 76 (38-126) U/L Troponin I < 0.012 (0.01-0.034) ng/mL Total Protein 6.9 (6.3-8.2) g/dL Albumin 3.8 (3.5-5.0) g/dL Globulin 3.1 (1.7-4.1) g/dL Albumin/Globulin Ratio 1.2 (1.0-2.8) Lipase 62 (23-300) U/L Imaging Data Chest x-ray: Radiologist's Impression: [address] [address] XRay Report Signed Patient: Natasha Manzo [facility]#: [id number] : 5Acct:[id number] Age/Sex: 84 / FDate of Service: 03/24/20 Loc: ED Accession Number: [id number] Procedure: XR chest 1V Ordering Provider: Florentino Recinos D.O. PROCEDURE: XR CHEST 1V INDICATIONS: Chest pain TECHNIQUE: One view of the chest was acquired. COMPARISON: [facility], JAQUELINE, XR CHEST 1V, 02/20/2020, 7:35. FINDINGS: Surgical changes and devices: Surgical clips near the right costophrenic angle. Vascular stenting and stent graft noted in the thoracoabdominal region. Lungs and pleura: Lungs are clear. No pleural effusions or pneumothorax. Mediastinum: Mediastinal contours appear normal. Heart size is normal. Bones and chest wall: No suspicious bony lesions. Overlying soft tissues appear unremarkable. IMPRESSION: Stable examination of the chest without acute cardiopulmonary abnormalities. Dictated by: Mayur Martin M.D. on 03/24/2020 at 18:46 Approved by: Mayur Martin M.D. on 03/24/2020 at 18:48 CT chest abdomen pelvis: Radiologist's Impression: [address] [address] [address] Scan Report Signed Patient: Natasha Manzo MMR#: [id number] : 5Acct:[id number] Age/Sex: 84 / FDate of Service: 03/24/20 Loc: ED Accession Number: [id number] Procedure: CT chest abd pel w con Ordering Provider: Florentino Recinos D.O. PROCEDURE: CT CHEST ABD PEL W CON INDICATIONS: R side chest and upper abd pain after fall on eliquis TECHNIQUE: After the administration of intravenous contrast, 5 mm thick sections acquired from the lung apices to the symphysis. 2.5 mm thick coronal and sagittal reformats were acquired. Additional 7 mm thick coronal maximum intensity projection (MIP) reformats acquired through the lungs. Optional 10-minute delayed imaging may be performed from the kidneys to the bladder. For radiation dose reduction, the following was used: automated exposure control, adjustment of mA and/or kV according to patient size. COMPARISON: [facility], CT, CT ANGIO CHEST ABDOMEN PELVIS, 10/04/2019, 12:38. FINDINGS: Image quality: Excellent. CHEST: Lungs: Stable scarring within the periphery of the superior segment of the right lower lobe. Small right pneumothorax is noted. There is an acute lateral right sixth rib fracture. No pulmonary contusions or lacerations. No acute airspace opacities. No pneumothorax or hemothorax. Central and peripheral airways appear patent and normal in caliber. Mediastinum: No mediastinal hematomas. Heart size is is enlarged. No pericardial effusion. Thoracic aorta and pulmonary arteries demonstrate normal size and enhancement. No mediastinal or hilar adenopathy. Esophagus is normal in caliber. No hiatal hernia. Chest wall: Nondisplaced acute lateral right sixth rib fracture. No subcutane ous emphysema. No axillary or supraclavicular adenopathy. Thyroid gland demonstrate multiple subcentimeter bilateral thyroid nodules.. ABDOMEN: Solid organs: Previously noted large right hepatic lobe cyst now has hyperdense material within it suggestive of hemorrhage. Gallbladder is surgically absent. Biliary system is non-dilated. Increased prominence of the common bile duct likely physiologic dilatation postcholecystectomy. Pancreas enhances normally, without transection. Spleen is normal in size and enhancement, without lacerations. No adrenal hematomas. Both kidneys enhance normally, without hydronephrosis or lacerations. Stable appearance of large left subcapsular perinephric hematoma. Peritoneum and bowel: No free fluid or air. Unenhanced bowel loops demonstrate normal wall thickness and caliber. Postoperative changes from previous gastrectomy. Nodes and vessels: Redemonstration of abdominal aortic aneurysm which appears stable in size. No new opacification of the aneurysm sac. Stent graft is again noted in the inferior aspect of the thoracic aorta and extends into the abdominal aorta. Bilateral renal artery stents are also noted. No retroperitoneal or mesenteric adenopathy. Miscellaneous: No ventral hernias. PELVIS: Genitourinary: Bladder wall thickness is normal. Miscellaneous: No inguinal hernias or adenopathy. Bones: Pelvic ring and hip joints appear intact. Status post right hip arthroplasty. No acute vertebral compression fractures. Multilevel spondylosis of the imaged spine. Diffuse osteopenia. IMPRESSION: 1. Acute lateral right sixth rib fracture with small right pneumothorax. 2. Interval hemorrhage into known large right hepatic lobe cyst. Otherwise, no evidence for traumatic injury to the liver parenchyma. 3. Stable appearance of large left subcapsular perinephric hematoma. 4. Stable size and appearance of proximal abdominal aortic aneurysm status post stent placement. No evidence for acute extravasation or surrounding hematoma. 5. Slight interval increase in prominence of common bile duct and central intrahepatic ductal prominence. Recommend outpatient followup. 6. Other chronic, non acute findings as above. Findings were discussed with Dr. Recinos of the emergency department at 2034 ho urs. Dictated by: Mayur Martin M.D. on 03/24/2020 at 20:16 Approved by: Mayur Martin M.D. on 03/24/2020 at 20:40 ECG Data Attestation: I personally reviewed and interpreted this ECG as follows: Prior ECG tracings: not available for review Interpretation: Sinus rhythm Ventricular rate of 61 Normal axis Normal QRS Normal QTC No ST T wave changes MDM Narrative Medical decision making narrative: CT scan shows right-sided rib fracture with small pneumothorax. Will hold on a chest to for now given the size. Also shows what appears to be hemorrhage into the cyst in her liver. I suspect all of these are new from her fall. This does appear to be a mechanical fall. Patient is not in any respiratory distress. No new neurologic symptoms. Discussed the case with Dr. Cavazos with general surgery who will evaluate the patient. Given her medical history will admit to her primary doctor. Discussed the case with Dr. Temple. Holding orders placed. Care transitioned at the time of admission. Modified trauma called secondary to fall on anticoagulation and injuries. Discussed the injuries and the need for admission with the patient and her . They expressed understanding and agreement. Discharge Plan Departure Patient Disposition: Admitted As Inpatient Clinical Impression: Traumatic fracture of ribs of right side with pneumothorax Fracture of rib of right side Qualifiers: Encounter type: initial encounter Rib fracture type: single rib Fracture type: closed Qualified Code(s): S22.31XA - Fracture of one rib, right side, initial encounter for closed fracture Fall Qualifiers: Encounter type: initial encounter Qualified Code(s): W19.XXXA - Unspecified fall, initial encounter Discharge Date/Time: 03/24/20 22:25 Referrals: Akiko Temple MD [Primary Care Provider] - Admit Date/Time: 03/24/20 22:03 Admit Provider: Akiko Temple
--- NOTE | 2020-03-24 18:22 | DI.CT.S_ITS ---
PROCEDURE: CT CHEST ABD PEL W CON INDICATIONS: R side chest and upper abd pain after fall on eliquis TECHNIQUE: After the administration of intravenous contrast, 5 mm thick sections acquired from the lung apices to the symphysis. 2.5 mm thick coronal and sagittal reformats were acquired. Additional 7 mm thick coronal maximum intensity projection (MIP) reformats acquired through the lungs. Optional 10-minute delayed imaging may be performed from the kidneys to the bladder. For radiation dose reduction, the following was used: automated exposure control, adjustment of mA and/or kV according to patient size. COMPARISON: [facility], CT, CT ANGIO CHEST ABDOMEN PELVIS, 10/04/2019, 12:38. FINDINGS: Image quality: Excellent. CHEST: Lungs: Stable scarring within the periphery of the superior segment of the right lower lobe. Small right pneumothorax is noted. There is an acute lateral right sixth rib fracture. No pulmonary contusions or lacerations. No acute airspace opacities. No pneumothorax or hemothorax. Central and peripheral airways appear patent and normal in caliber. Mediastinum: No mediastinal hematomas. Heart size is is enlarged. No pericardial effusion. Thoracic aorta and pulmonary arteries demonstrate normal size and enhancement. No mediastinal or hilar adenopathy. Esophagus is normal in caliber. No hiatal hernia. Chest wall: Nondisplaced acute lateral right sixth rib fracture. No subcutaneous emphysema. No axillary or supraclavicular adenopathy. Thyroid gland demonstrate multiple subcentimeter bilateral thyroid nodules.. ABDOMEN: Solid organs: Previously noted large right hepatic lobe cyst now has hyperdense material within it suggestive of hemorrhage. Gallbladder is surgically absent. Biliary system is non-dilated. Increased prominence of the common bile duct likely physiologic dilatation postcholecystectomy. Pancreas enhances normally, without transection. Spleen is normal in size and enhancement, without lacerations. No adrenal hematomas. Both kidneys enhance normally, without hydronephrosis or lacerations. Stable appearance of large left subcapsular perinephric hematoma. Peritoneum and bowel: No free fluid or air. Unenhanced bowel loops demonstrate normal wall thickness and caliber. Postoperative changes from previous gastrectomy. Nodes and vessels: Redemonstration of abdominal aortic aneurysm which appears stable in size. No new opacification of the aneurysm sac. Stent graft is again noted in the inferior aspect of the thoracic aorta and extends into the abdominal aorta. Bilateral renal artery stents are also noted. No retroperitoneal or mesenteric adenopathy. Miscellaneous: No ventral hernias. PELVIS: Genitourinary: Bladder wall thickness is normal. Miscellaneous: No inguinal hernias or adenopathy. Bones: Pelvic ring and hip joints appear intact. Status post right hip arthroplasty. No acute vertebral compression fractures. Multilevel spondylosis of the imaged spine. Diffuse osteopenia. IMPRESSION: 1. Acute lateral right sixth rib fracture with small right pneumothorax. 2. Interval hemorrhage into known large right hepatic lobe cyst. Otherwise, no evidence for traumatic injury to the liver parenchyma. 3. Stable appearance of large left subcapsular perinephric hematoma. 4. Stable size and appearance of proximal abdominal aortic aneurysm status post stent placement. No evidence for acute extravasation or surrounding hematoma. 5. Slight interval increase in prominence of common bile duct and central intrahepatic ductal prominence. Recommend outpatient followup. 6. Other chronic, non acute findings as above. Findings were discussed with Dr. Recinos of the emergency department at 2035 hours. Dictated by: Mayur Martin M.D. on 03/24/2020 at 20:16 Approved by: Mayur Martin M.D. on 03/24/2020 at 20:40
[2020-03-24] MEDS: methylPREDNISolone 125 MG/2 ML VIAL 40 MG IV (18:35)
[2020-03-24] MEDS: diphenhydrAMINE 50 MG/ML VIAL 25 MG IV (18:36)
[2020-03-24 18:56] LABS: Add Manual Diff / Slide Review NO; Basophils Absolute Auto 100 /uL (0-100); Basophils Percent Auto 0.8 % (0-2); Eosinophils Absolute Auto 100 /uL (0-450); Eosinophils Percent Auto 1.2 % (2-4); Hematocrit 35.7 % (36-46); Hemoglobin 12.1 g/dL (12.0-16.0); Lymphocytes Absolute Auto 800 /uL (1100-4500); Lymphocytes Percent Auto 10.5 % (25-40); Mean Corpuscular HGB Conc 33.7 % (30-36); Mean Corpuscular Hemoglobin 31.6 PG (26-34); Mean Corpuscular Volume 93.8 fL (80-100); Monocytes Absolute Auto 1100 /uL (0-900); Monocytes Percent Auto 14.4 % (3-14); Neutrophils Absolute Auto 5400 /uL (1500-7000); Neutrophils Percent Auto 73.1 % (50-75); Platelet Count 230 X10^3/uL (150-400); Red Blood Cell Count 3.81 X10^6/uL (4.0-5.2); Red Cell Distribution Width 13.3 % (11.6-14.8); White Blood Cell Count 7.4 X10^3/uL (4.5-11.0)
[2020-03-24 19:07] LABS: Alanine Aminotransferase 76 IU/L (<35); Albumin 3.8 g/dL (3.5-5.0); Albumin Globulin Ratio 1.2 (1.0-2.8); Alkaline Phosphatase 76 U/L (38-126); Aspartate Aminotransferase 119 IU/L (14-36); BUN Creatinine Ratio 25.9 (6-22); Bilirubin Total 0.5 mg/dL (0.2-1.3); Blood Urea Nitrogen 15 mg/dL (7-17); Calcium 9.5 mg/dL (8.4-10.2); Carbon Dioxide 31 mmol/L (22-32); Chloride 105 mmol/L (98-107); Estimated Glomerular Filt Rate > 60.0 mL/min (>60); Globulin 3.1 g/dL (1.7-4.1); Glucose 128 mg/dL (80-110); HEMOLYSIS < 15 (0-50); Lipase 62 U/L (23-300); Potassium 3.2 mmol/L (3.4-5.1); Sodium 140 mmol/L (137-145); Total Protein 6.9 g/dL (6.3-8.2)
[2020-03-24 19:16] LABS: INR 1.1 (0.9-1.3); Prothrombin Time 12.8 SECONDS (10.1-12.7)
[2020-03-24 19:19] LABS: PTT Partial Thromboplastin Tim 40 SECONDS (26.4-36.2); Troponin I < 0.012 ng/mL (0.01-0.034)
[2020-03-24] MEDS: HYDROCODONE/ACET 5/325 TABLET 1 TAB PO (20:34)
--- NOTE | 2020-03-24 21:51 | PM.CN ---
History of Present Illness Consult details Date Patient Seen: 03/24/20 Time Patient Seen: 21:51 Chief complaint: GLF,chest pain since fall,on eliquis Reason for consult: GLF, rib fracture, pneumothorax Requesting provider: Florentino Recinos Narrative: This is an 84 yo woman with history of HTN, HLD, anticoagulation on Eliquis, a AAA with stent, a stroke one month ago, who presented to the ER this evening after a GLF at home. Per the patient's the patient was standing at the sink in the kitchen and tripped over right foot. Her says her right foot has not been working quite right since the stroke. On CT scan the patient has a nondisplaced right sixth rib fracture, a very tiny pneumothorax, and an intrahepatic bleed into a liver cyst. She has a stented AAA and left perinephric hematoma that are stable. She denies any pain, other than her left hip, which is not a new pain. ROS: CONSTITUTIONAL: No fever chills or sweats. NEUROLOGICAL: Slurred speech, right facial droop, right hemiparesis, no headache decreased sensation in her right arm and right leg EENT: No sore throat or difficulty in swallowing CARDIO-PULMONARY: No racing of her heart chest pain cough shortness of breath HEMOTOLOGICAL: No bruising or external bleeding GASTROINTESTINAL: No abdominal pain, no nausea vomiting diarrhea GENITAL URINARY: No urinary symptoms. MUSCULOSKELETAL/ RHEUMATOLOGICAL: The patient denies any neck or back pain. She only reports left hip pain which is not new from her fall; right foot weakness, right arm paralysis (both from stroke) DERMATOLOGICAL: No skin rash hives bruising or itching Thirteen system review is otherwise negative other than as mentioned below and in HPI. PE: GENERAL: Alert, comfortable, cooperative. Appears stated age. Answers questions promptly and appropriately. Vital signs noted. HENT: Normocephalic, atraumatic. Hearing intact. Oral mucosa is pink and moist. EYES: Conjunctiva pink, sclera white, no periorbital swelling. CARDIOVASCULAR: Regular rate. No pedal edema. RESPIRATORY: Non-tachypneic, breathing comfortably on room air. GASTROINTESTINAL: Abdomen soft and non-distended, nontender GENITALURINARY: No flank tenderness. MUSCULOSKELETAL: No bone or joint tenderness; no C, T, or L spine tenderness, no step offs; no back or rib TTP; specifically no tenderness or ecchymosis over the right ribs SKIN: Warm, dry, soft, appropriate color for ethnicity. No other lesions, rashes, or wounds. NEURO: Alert and Oriented X 3. +right facial droop; right arm paralysis; right foot weakness; left arm and leg strength ROM intact PSYCH: Appropriate mood and affect, normal intellect Meds Home Medications and Allergies Home Medications Medication Instructions Recorded Confirmed Type LISINOPRIL (Zestril / Prinivil) 40 mg PO Q DAY #0 09/02/07 History lorazepam [Ativan] 0.5 mg PO BIDP PRN #15 tab 07/15/16 Rx POLYETHYLENE GLYCOL 3350 17 gm PO #0 09/20/16 History acetaminophen 160 mg PO Q4HP PRN #0 09/20/16 History amlodipine [Norvasc] 5 mg PO QDAY #0 09/20/16 History citalopram 10 mg PO QDAY #0 09/20/16 History metoprolol tartrate 12.5 mg PO BID #0 09/20/16 History nystatin 5 ml PO QID #360 ml 05/06/17 Rx Allergies Allergy/AdvReac Type Severity Reaction Status Date / Time atenolol [ATENOLOL] Allergy Severe RESP Verified 09/26/19 11:01 DISTRESS Jkrqrxg-Vli-Ejn Reductase Allergy Severe RESP Verified 09/26/19 11:01 Inhibitor DISTRESS [[id number]-IJU REDUCTASE INHIBITOR] levofloxacin [From LEVAQUIN] Allergy Intermediate swollen Verified 09/26/19 11:01 tongue sertraline [From ZOLOFT] Allergy Mild UNSURE Verified 09/26/19 11:01 Iodine and Iodide Containing Allergy Verified 09/26/19 11:01 Produc Exam Vital Signs (past 8 hours): - 03/24/20 18:00 03/24/20 18:15 03/24/20 18:18 Temperature 98.8 F Pulse Rate 61 59 L 64 Respiratory Rate 43 H 20 Blood Pressure 174/79 H Blood Pressure [Left Arm] 174/79 H Pulse Oximetry 97 98 97 03/24/20 18:30 03/24/20 18:45 03/24/20 20:16 Temperature Pulse Rate 58 L 61 63 Respiratory Rate 33 H 24 21 Blood Pressure Blood Pressure [Left Arm] 162/77 H 160/79 H Pulse Oximetry 97 98 95 Oxygen Delivery Method Room Air Objective Imaging CT scan - abdomen: Radiologist's impression: [address] [address] [address] Scan Report Signed Patient: Natasha Manzo MMR#: [id number] : 5Acct:[id number] Age/Sex: 84 / FDate of Service: 03/24/20 Loc: ED Accession Number: [id number] Procedure: CT chest abd pel w con Ordering Provider: Florentino Recinos D.O. PROCEDURE: CT CHEST ABD PEL W CON INDICATIONS: R side chest and upper abd pain after fall on eliquis TECHNIQUE: After the administration of intravenous contrast, 5 mm thick sections acquired from the lung apices to the symphysis. 2.5 mm thick coronal and sagittal reformats were acquired. Additional 7 mm thick coronal maximum intensity projection (MIP) reformats acquired through the lungs. Optional 10-minute delayed imaging may be performed from the kidneys to the bladder. For radiation dose reduction, the following was used: automated exposure control, adjustment of mA and/or kV according to patient size. COMPARISON: [facility], CT, CT ANGIO CHEST ABDOMEN PELVIS, 10/04/2019, 12:38. FINDINGS: Image quality: Excellent. CHEST: Lungs: Stable scarring within the periphery of the superior segment of the right lower lobe. Small right pneumothorax is noted. There is an acute lateral right sixth rib fracture. No pulmonary contusions or lacerations. No acute airspace opacities. No pneumothorax or hemothorax. Central and peripheral airways appear patent and normal in caliber. Mediastinum: No mediastinal hematomas. Heart size is is enlarged. No pericardial effusion. Thoracic aorta and pulmonary arteries demonstrate normal size and enhancement. No mediastinal or hilar adenopathy. Esophagus is normal in caliber. No hiatal hernia. Chest wall: Nondisplaced acute lateral right sixth rib fracture. No subcutaneous emphysema. No axillary or supraclavicular adenopathy. Thyroid gland demonstrate multiple subcentimeter bilateral thyroid nodules.. ABDOMEN: Solid organs: Previously noted large right hepatic lobe cyst now has hyperdense material within it suggestive of hemorrhage. Gallbladder is surgically absent. Biliary system is non-dilated. Increased prominence of the common bile duct likely physiologic dilatation postcholecystectomy. Pancreas enhances normally, without transection. Spleen is normal in size and enhancement, without lacerations. No adrenal hematomas. Both kidneys enhance normally, without hydronephrosis or lacerations. Stable appearance of large left subcapsular perinephric hematoma. Peritoneum and bowel: No free fluid or air. Unenhanced bowel loops demonstrate normal wall thickness and caliber. Postoperative changes from previous gastrectomy. Nodes and vessels: Redemonstration of abdominal aortic aneurysm which appears stable in size. No new opacification of the aneurysm sac. Stent graft is again noted in the inferior aspect of the thoracic aorta and extends into the abdominal aorta. Bilateral renal artery stents are also noted. No retroperitoneal or mesenteric adenopathy. Miscellaneous: No ventral hernias. PELVIS: Genitourinary: Bladder wall thickness is normal. Miscellaneous: No inguinal hernias or adenopathy. Bones: Pelvic ring and hip joints appear intact. Status post right hip arthroplasty. No acute vertebral compression fractures. Multilevel spondylosis of the imaged spine. Diffuse osteopenia. IMPRESSION: 1. Acute lateral right sixth rib fracture with small right pneumothorax. 2. Interval hemorrhage into known large right hepatic lobe cyst. Otherwise, no evidence for traumatic injury to the liver parenchyma. 3. Stable appearance of large left subcapsular perinephric hematoma. 4. Stable size and appearance of proximal abdominal aortic aneurysm status post stent placement. No evidence for acute extravasation or surrounding hematoma. 5. Slight interval increase in prominence of common bile duct and central intrahepatic ductal prominence. Recommend outpatient followup. 6. Other chronic, non acute findings as above. Findings were discussed with Dr. Recinos of the emergency department at 2035 hours. Dictated by: Mayur Martin M.D. on 03/24/2020 at 20:16 Approved by: Mayur Martin M.D. on 03/24/2020 at 20:40 Labs Result Diagrams: 03/24/20 18:45 03/24/20 18:45 Labs: Laboratory Results - last 24 hr 03/24/20 03/24/20 03/24/20 18:45 18:45 18:45 WBC 7.4 RBC 3.81 L Hgb 12.1 Hct 35.7 L MCV 93.8 MCH 31.6 MCHC 33.7 RDW 13.3 Plt Count 230 Neut % (Auto) 73.1 Lymph % (Auto) 10.5 L [place] % (Auto) 14.4 H Eos % (Auto) 1.2 L Baso % (Auto) 0.8 Neut # (Auto) 5400 Lymph # (Auto) 800 L [place] # (Auto) 1100 H Eos # (Auto) 100 Baso # (Auto) 100 PT 12.8 H INR 1.1 APTT 40 H D Sodium 140 Potassium 3.2 L Chloride 105 Carbon Dioxide 31 BUN 15 Creatinine 0.58 Estimated GFR > 60.0 BUN/Creatinine Ratio 25.9 H Glucose 128 H Calcium 9.5 Total Bilirubin 0.5 AST 119 H ALT 76 H Alkaline Phosphatase 76 Troponin I < 0.012 Total Protein 6.9 Albumin 3.8 Globulin 3.1 Albumin/Globulin Ratio 1.2 Lipase 62 Assessment & Plan Assessment and plan (1) Traumatic fracture of ribs of right side with pneumothorax: Status: Acute (2) Fall: Qualifiers: Encounter type: initial encounter Qualified Code(s): W19.XXXA - Unspecified fall, initial encounter Status: Acute (3) Liver hematoma: Status: Acute (4) Anticoagulated by anticoagulation treatment: Status: Acute (5) H/O: stroke with residual effects: Status: Acute Assessment & Plan narrative: This is an 84 yo woman with GLF secondary to weakness of right foot and right arm post stroke. She has a right sixth rib fracture and a tiny occult pneumothorax (only seen on CT not on CXR). She has a liver hematoma which is contained within a liver cyst. Other CT findings are stable from prior CT. She denies any pain or SOB. Recommendations: Hold Eliquis Repeat Hgb in AM Incentive Spirometer Ambulate as tolerated PT to assist with safe ambulation Lidocaine patch PRN for rib pain Repeat CXR in AM, or sooner if acute SOB COVID-19 COVID-19 status: Not tested Time Spent With Patient Time with patient: 25 - 35 minutes
--- NOTE | 2020-03-24 22:48 | PC.NURSE ---
Patient arrived to floor at 2230, patient is A&O x3, pleasant and able to make needs known. Pt's accompanies patient today to hosp. Patient was trans. to bed via slider board, but was able to lift butt off bed and sit up to change in gown. VSS, bed alarm active, patient orientated to room and aware that new shift will start soon and new nurse will be introduced.
[2020-03-24 23:25] LABS: COVID19 -Nasal RAPID Negative (Negative)
[2020-03-25] VITALS (10 sets, daily range): BP systolic 134–166; BP diastolic 70–95; PULSE 48–67; RESP 15–18; TEMP 36.3–36.8; O2SAT 95–99
[2020-03-25] MEDS: MELATONIN 3 MG TABLET 9 MG PO ×2 (00:12→20:39)
[2020-03-25 05:59] LABS: Add Manual Diff / Slide Review NO; Basophils Absolute Auto 0 /uL (0-100); Basophils Percent Auto 0.2 % (0-2); Eosinophils Absolute Auto 0 /uL (0-450); Hematocrit 38.3 % (36-46); Hemoglobin 13.1 g/dL (12.0-16.0); Lymphocytes Absolute Auto 700 /uL (1100-4500); Lymphocytes Percent Auto 11.2 % (25-40); Mean Corpuscular HGB Conc 34.1 % (30-36); Mean Corpuscular Hemoglobin 31.8 PG (26-34); Mean Corpuscular Volume 93.3 fL (80-100); Monocytes Absolute Auto 100 /uL (0-900); Monocytes Percent Auto 2.1 % (3-14); Neutrophils Absolute Auto 5600 /uL (1500-7000); Neutrophils Percent Auto 86.5 % (50-75); Platelet Count 236 X10^3/uL (150-400); Red Cell Distribution Width 13.7 % (11.6-14.8); White Blood Cell Count 6.5 X10^3/uL (4.5-11.0)
--- NOTE | 2020-03-25 06:00 | DI.RAD.S_ITS ---
PROCEDURE: XR CHEST 1V INDICATIONS: Repeat for pneumothorax TECHNIQUE: One view of the chest was acquired. COMPARISON: CT chest, abdomen, and pelvis dated 03/24/20.. FINDINGS: Surgical changes and devices: Remote thoracolumbar endovascular aortic repair. Lungs and pleura: Lungs are clear. The minimal pneumothorax seen on the chest CT is not identifiable by plain films. No pleural fluid noted. Mediastinum: Mediastinal contours appear normal. Heart size is normal. Bones and chest wall: Acute displaced right posterior sixth rib fracture. Posterior right third rib fracture. No suspicious bony lesions. Overlying soft tissues appear unremarkable. IMPRESSION: Acute right posterior sixth rib fracture. No plain film evidence of pneumothorax. Dictated by: Florin Jaquez M.D. on 03/25/2020 at 8:20 Approved by: Florin Jaquez M.D. on 03/25/2020 at 8:24
[2020-03-25 06:03] LABS: BUN Creatinine Ratio 27.6 (6-22); Blood Urea Nitrogen 16 mg/dL (7-17); Calcium 9.9 mg/dL (8.4-10.2); Carbon Dioxide 31 mmol/L (22-32); Chloride 105 mmol/L (98-107); Estimated Glomerular Filt Rate > 60.0 mL/min (>60); Glucose 136 mg/dL (80-110); HEMOLYSIS < 15 (0-50); Potassium 4.1 mmol/L (3.4-5.1); Sodium 140 mmol/L (137-145)
--- NOTE | 2020-03-25 08:35 | P.HP_ITS ---
History of Present Illness History of Present Illness Date Patient Seen: 03/25/20 Time Patient Seen: 08:35 Date of Onset of Symptoms: 03/24/20 Chief complaint: GLF,chest pain since fall,on eliquis Narrative: This pleasant 84-year-old female with multiple medical problems and a rather tumultuous recent course presents to the emergency room via private vehicle after a fall where she tripped over her right foot that she currently has mild hemiparesis on the right side from her recent CVA on 02/20/2020. She fell and hit her right side and was evaluated in the emergency room and found to have a 6th rib lateral of right fracture with a small pneumothorax as well as a known hepatic cyst which appears to have bled into the cyst. She was admitted overnight for further observation and monitoring. Patient denies any complaints. She slept okay. Her pain is fairly well controlled on the hydrocodone. This represents her 3rd fall. She is progressing with home physical therapy speech therapy and occupational therapy but yet falls as above. She denies any pre to her head her was right next to her and observed the fall. Patient did not receive lunch or dinner yesterday and is currently eating breakfast without difficulty. She did and Past medical history: 1. CVA 02/20/2020 thought to be secondary to new onset atrial fibrillation, treated at [facility] with residual right hemiparesis. Patient was in inpatient rehab for approximately a week and was discharged home about 3 weeks ago. She has done fairly well at home. She was started on Eliquis and antihypertensives were modified. It was an acute ischemic left MCA stroke status post tPA 2. Stage I adenocarcinoma of the stomach 3. Abdominal aortic aneurysm status post stenting 4. Perinephric hematoma left side as complication of stenting abdominal aortic aneurysm Assessment 5. Type 2 diabetes 6. Diabetic nephropathy 7. Hypertension 8. Hyperlipidemia 9. Osteopenia 10. Status post right hip fracture 11. Status post vertebral compression fracture 12. Hepatic cyst 13. Colonic polyps 14. History of tobacco VS 15. Paroxysmal atrial fibrillation 1st diagnosed in January of 2020 when she had her CVA Past surgical history: Surgical repair of hip fracture Partial gastrectomy Stenting abdominal aortic aneurysm Health heard a behavior: Previous tobacco abuse No alcohol Active at home prior to CVA Social history: Patient is to her current for over 60 years. [address] on [facility] [address] [facility]. They live together in a house. is very supportive. Patient has children close by who are supportive and helpful Review of system Negative for headache Negative for loss of consciousness or head injury Negative for chest pain Negative for palpitation Negative for GI symptoms Mobility has been improving Negative for anxiety or depression Review of systems otherwise negative Negative shortness of breath Patient History Medical History Acute post-hemorrhagic anemia (Inactive) Anxiety (Inactive) Fracture of distal fibula (Inactive) Gastritis (Inactive) Hip dislocation, right (Inactive) Hypertension (Acute) Palpitations (Inactive) Posthemorrhagic anemia (Inactive) UTI (urinary tract infection) (Inactive) Surgical History S/P hip hemiarthroplasty (Inactive) S/P total hip arthroplasty (Acute) Family & Social History Social History: household members spouse Prior Living Arrangements House Safety & Behavioral: Feels Safe in Current Yes Environment Been Physically Hurt or No Threatened By a Person Suicidal Ideation Description None Suicide Plan Description No Plan Tobacco & Substance use: Smoking Status Never smoker alcohol intake never Substance Use Type does not use Meds Home Medications and Allergies Home Medications Medication Instructions Recorded Confirmed Type LISINOPRIL (Zestril / Prinivil) 10 mg PO Q DAY #0 09/02/07 03/24/20 History POLYETHYLENE GLYCOL 3350 17 gm PO PRN PRN #0 09/20/16 03/24/20 History amlodipine [Norvasc] 10 mg PO QDAY #0 09/20/16 03/24/20 History metoprolol tartrate 12.5 mg PO BID #0 09/20/16 03/24/20 History apixaban [Eliquis] 2.5 mg PO BID 03/24/20 03/24/20 History Allergies Allergy/AdvReac Type Severity Reaction Status Date / Time atenolol [ATENOLOL] Allergy Severe RESP Verified 09/26/19 11:01 DISTRESS Cvsbtwi-Hde-Vnz Reductase Allergy Severe RESP Verified 09/26/19 11:01 Inhibitor DISTRESS [KRBNCHR-XPL-VSV REDUCTASE INHIBITOR] levofloxacin [From LEVAQUIN] Allergy Intermediate swollen Verified 09/26/19 11:01 tongue sertraline [From ZOLOFT] Allergy Mild UNSURE Verified 09/26/19 11:01 Iodine and Iodide Containing Allergy Verified 09/26/19 11:01 Produc Exam Vital Signs (past 8 hours): - 03/25/20 03:00 Temperature 97.8 F Pulse Rate 65 Respiratory Rate 16 Blood Pressure 152/72 H Pulse Oximetry 99 Oxygen Delivery Method Room Air Oxygen Flow Rate 0 Narrative Exam Narrative: Afebrile vital signs are stable blood pressures 130s over 70s with heart rate of 54 rate now. Alert and oriented x3 HEENT: Remarkable for right facial droop unchanged from last week. Mucous membranes moist and pink Neck: Supple without adenopathy, thyromegaly, jugular venous distention or bruit Chest: Clear to auscultation without wheezes rhonchi or crackles. Slightly decreased breath sounds right base Cor: Regular rate and rhythm without any murmur. No evidence of ectopy. No evidence of AFib Abdomen: Positive bowel sounds, soft, tender in the right upper quadrant right lateral abdomen Extremities: No edema pulses intact Neurologic exam unchanged from 1 week ago when patient was seen in the office with right-sided weakness of the right upper extremity and right lower extremity Skin no rashes Objective Labs Result Diagrams: 03/25/20 05:38 03/25/20 05:38 Labs: Laboratory Results - last 24 hr 03/24/20 03/24/20 03/24/20 18:45 18:45 18:45 WBC 7.4 RBC 3.81 L Hgb 12.1 Hct 35.7 L MCV 93.8 MCH 31.6 MCHC 33.7 RDW 13.3 Plt Count 230 Neut % (Auto) 73.1 Lymph % (Auto) 10.5 L [place] % (Auto) 14.4 H Eos % (Auto) 1.2 L Baso % (Auto) 0.8 Neut # (Auto) 5400 Lymph # (Auto) 800 L [place] # (Auto) 1100 H Eos # (Auto) 100 Baso # (Auto) 100 PT 12.8 H INR 1.1 APTT 40 H D Sodium 140 Potassium 3.2 L Chloride 105 Carbon Dioxide 31 BUN 15 Creatinine 0.58 Estimated GFR > 60.0 BUN/Creatinine Ratio 25.9 H Glucose 128 H Calcium 9.5 Total Bilirubin 0.5 AST 119 H ALT 76 H Alkaline Phosphatase 76 Troponin I < 0.012 Total Protein 6.9 Albumin 3.8 Globulin 3.1 Albumin/Globulin Ratio 1.2 Lipase 62 COVID-19 PCR 03/24/20 03/25/20 03/25/20 22:26 05:38 05:38 WBC 6.5 RBC 4.10 Hgb 13.1 Hct 38.3 MCV 93.3 MCH 31.8 MCHC 34.1 RDW 13.7 Plt Count 236 Neut % (Auto) 86.5 H Lymph % (Auto) 11.2 L [place] % (Auto) 2.1 L Eos % (Auto) 0.0 L Baso % (Auto) 0.2 Neut # (Auto) 5600 Lymph # (Auto) 700 L [place] # (Auto) 100 Eos # (Auto) 0 Baso # (Auto) 0 PT INR APTT Sodium 140 Potassium 4.1 Chloride 105 Carbon Dioxide 31 BUN 16 Creatinine 0.58 Estimated GFR > 60.0 BUN/Creatinine Ratio 27.6 H Glucose 136 H Calcium 9.9 Total Bilirubin AST ALT Alkaline Phosphatase Troponin I Total Protein Albumin Globulin Albumin/Globulin Ratio Lipase COVID-19 PCR Negative Assessment & Plan Assessment & Plan narrative: 84-year-old female well known to me with history of ischemic CVA due to paroxysmal atrial fibrillation in with fall and sustaining a small right rib fracture and pneumothorax as well as hepatic cyst with acute hemorrhage into it. Overall patient appears stable. We will wait the results of the chest x-ray which was already done. Appreciate general surgery consult Will consult physical therapy Will continue with current pain regimen Will monitor overnight and if remains stable without changes likely home in a.m. Assessment 2. Recent CVA with no acute symptoms Plan: Continue with physical therapy Unfortunately we have to hold the Eliquis because of the recent fall and trauma Assessment 3. DVT prophylaxis SCDs Assessment 4. Hypertension Plan: Will continue outpatient regimen which she was discharged from private [facility]. This includes amlodipine 10 mg a day, lisinopril 10 mg a day metoprolol 12.5 mg twice daily. Assessment 5. Paroxysmal atrial fibrillation without acute symptoms Plan: Will follow Assessment 6. Type 2 diabetes diet controlled not currently on medications Plan: Will continue to monitor Assessment 7. Previous UTI Plan will reassess and make sure this isn't contributing to falls Assessment 8. History of abdominal aortic aneurysm status post stenting without any current symptoms or affect from fall Plan: Follow-up Code status: DNI COVID-19 COVID-19 status: Negative Result date/Date tested (Pos, Neg/Pending): 03/24/20 Quality VTE Deep Vein Thrombosis/Pulmonary Embolism Present on Admission: No
[2020-03-25] MEDS: lisinopriL 10 MG TABLET PO (09:03)
[2020-03-25] MEDS: AMLODIPINE 5 MG TABLET 10 MG PO (09:03)
[2020-03-25] MEDS: METOPROLOL ER 25 MG TABLET 12.5 MG PO ×2 (09:04→20:38)
--- NOTE | 2020-03-25 09:47 | PM.PN.1 ---
Subjective Subjective Date Patient Seen: 03/25/20 Time Patient Seen: 09:47 Interval history: No acute overnight events. Breathing well on room air, has pain with deep inspiration No abdominal pain nausea vomiting. Exam Vital Signs (past 8 hours): - 03/25/20 03:00 03/25/20 08:05 03/25/20 09:04 Temperature 97.8 F 97.5 F L Pulse Rate 65 57 L 57 L Respiratory Rate 16 16 Blood Pressure 152/72 H 134/70 137/70 Pulse Oximetry 99 96 03/25/20 09:12 Temperature Pulse Rate 57 L Respiratory Rate Blood Pressure 134/70 Pulse Oximetry Oxygen Delivery Method Room Air Oxygen Flow Rate 0 Narrative Exam Narrative: General elderly female alert oriented no acute distress Chest nonlabored respirations clear to auscultation Abdomen soft nontender nondistended Objective Labs Result Diagrams: 03/25/20 05:38 03/25/20 05:38 Labs: Laboratory Results - last 24 hr 03/24/20 03/24/20 03/24/20 18:45 18:45 18:45 WBC 7.4 RBC 3.81 L Hgb 12.1 Hct 35.7 L MCV 93.8 MCH 31.6 MCHC 33.7 RDW 13.3 Plt Count 230 Neut % (Auto) 73.1 Lymph % (Auto) 10.5 L Cameron % (Auto) 14.4 H Eos % (Auto) 1.2 L Baso % (Auto) 0.8 Neut # (Auto) 5400 Lymph # (Auto) 800 L Cameron # (Auto) 1100 H Eos # (Auto) 100 Baso # (Auto) 100 PT 12.8 H INR 1.1 APTT 40 H D Sodium 140 Potassium 3.2 L Chloride 105 Carbon Dioxide 31 BUN 15 Creatinine 0.58 Estimated GFR > 60.0 BUN/Creatinine Ratio 25.9 H Glucose 128 H Calcium 9.5 Total Bilirubin 0.5 AST 119 H ALT 76 H Alkaline Phosphatase 76 Troponin I < 0.012 Total Protein 6.9 Albumin 3.8 Globulin 3.1 Albumin/Globulin Ratio 1.2 Lipase 62 COVID-19 PCR 03/24/20 03/25/20 03/25/20 22:26 05:38 05:38 WBC 6.5 RBC 4.10 Hgb 13.1 Hct 38.3 MCV 93.3 MCH 31.8 MCHC 34.1 RDW 13.7 Plt Count 236 Neut % (Auto) 86.5 H Lymph % (Auto) 11.2 L Cameron % (Auto) 2.1 L Eos % (Auto) 0.0 L Baso % (Auto) 0.2 Neut # (Auto) 5600 Lymph # (Auto) 700 L Cameron # (Auto) 100 Eos # (Auto) 0 Baso # (Auto) 0 PT INR APTT Sodium 140 Potassium 4.1 Chloride 105 Carbon Dioxide 31 BUN 16 Creatinine 0.58 Estimated GFR > 60.0 BUN/Creatinine Ratio 27.6 H Glucose 136 H Calcium 9.9 Total Bilirubin AST ALT Alkaline Phosphatase Troponin I Total Protein Albumin Globulin Albumin/Globulin Ratio Lipase COVID-19 PCR Negative Assessment & Plan Assessment & Plan narrative: 84-year-old woman after a ground level fall hemodynamically stable. -occult right pneumothorax-seen on CT chest yesterday not seen on x-ray. Today's chest x-ray reviewed there is no evidence of pneumothorax per my review. Continue incentive spirometer and pain control for the rib fracture -Liver laceration contained within a liver cyst-hemodynamically stable, hematocrit 38 from 36 yesterday. No evidence of active ongoing hemorrhage. Traumatic injuries stable and safe to discharge when appropriate from a medical standpoint Quality VTE Deep Vein Thrombosis/Pulmonary Embolism Present on Admission: No
--- NOTE | 2020-03-25 10:18 | PT.IIE ---
Current Diagnoses Unspecified sequelae of cerebral infarction (03/24/20) Multiple fractures of ribs, right side, initial encounter for closed fracture (03/24/20) Traumatic pneumothorax, initial encounter (03/24/20) Contusion of liver, initial encounter (03/24/20) Unspecified fall, initial encounter (03/24/20) vermin exterminator (current) use of anticoagulants (03/24/20) Surgical History (Last Reviewed 03/25/20 @ 03:22 by Florentino Recinos DO) S/P hip hemiarthroplasty (Inactive) S/P total hip arthroplasty (Acute) Medical History (Last Reviewed 03/25/20 @ 03:22 by Florentino Recinos DO) Acute post-hemorrhagic anemia (Inactive) Anxiety (Inactive) Fracture of distal fibula (Inactive) Gastritis (Inactive) Hip dislocation, right (Inactive) Hypertension (Acute) Palpitations (Inactive) Posthemorrhagic anemia (Inactive) UTI (urinary tract infection) (Inactive) Physical Therapy Inpatient Evaluation/Re-Eval M1 PT/OT-IP Prior Functional Status Start: 03/25/20 13:48 Freq: NEEDED Status: Active Protocol: Document 03/25/20 10:18 AB (Rec: 03/25/20 14:06 AB [id number]) Medical Review Prior Functional Status Medical History Reviewed Yes Communication able to make needs known Mobility and Gait pt's spouse stated that pt requires SBA with mobility and pt uses a quad cane for ambulation indoors but uses a manual w/c for outdoor mobility where spouse assists pt with w/c management. stated that pt just had a CVA last february 19 and has been receiving PT. PT has homehealth PT, nurse, caregiver(comes in 1 hour during mondays and fridays) and a bath aide. Social History Household Members spouse Living Arrangements House Number of Floors (Floors) Two Floors Number of Stairs To Enter/Railing? pt stays on main level of the house has a ramp to enter Home Environment Standard Height Toilet,Walk in Shower Home Equipment Quad Cane,Manual Wheelchair, Shower Seat with Backrest,Hand Held Shower,Grab Bars In Shower Additional Social History Comment pt has an adjustable bed with L rail pt has a toilet safety frame M2 PT-IP Current Condition Start: 03/25/20 13:48 Freq: NEEDED Status: Active Protocol: Document 03/25/20 10:18 AB (Rec: 03/25/20 14:06 AB [id number]) Physical Therapy Current Condition Current Condition Evaluation Date 03/25/20 Treatment Diagnosis s/p fall w/ R 6th rib fx & pneumothorax; recent CVA, difficulty in walking Onset Date 03/24/20 Precautions Other Precautions falls M3 PT-IP Subjective Start: 03/25/20 13:48 Freq: NEEDED Status: Active Protocol: Document 03/25/20 10:18 AB (Rec: 03/25/20 14:06 AB [id number]) Subjective Physical Therapy Visit Type Type Initial Evaluation Visit Start Time 10:18 Visit Stop Time 10:48 Total Visit Minutes 30 Number of PEOPLESOFT ADMINISTRATOR Visits 0 Physical Therapy Visit Comments Patient Comments pt agreeable to do PT Therapy Pain Assessment Pain When Pain Assessed During Mobility Location Right Lower Lateral Chest Scale Used 3 Pain Behaviors Facial Grimacing,Holding Area Pain Management Techniques Distraction,Re-positioning, Timing of Activity with Medications M4 PT-IP Mobility and Gait Start: 03/25/20 13:48 Freq: NEEDED Status: Active Protocol: Document 03/25/20 10:18 AB (Rec: 03/25/20 14:06 [id number]) PT-Bed Mobility Assessment Supine to Sit Supine to Sit Standby Assistance,Head of Bed Elevated Scooting Scooting to Edge of Bed Standby Assistance PT-Transfer Assessment Sit to and From Stand Sit to and from Stand Minimal Assistance,1 Person Assistance,Use of Upper Extremities Equipment Transfer Assistive Device Gait Belt,Small Based Quad Cane Orthotic/Prosthetic Devices or Brace: No Transfers Transfer Destination Chair Transfer Technique ambulated using quad cane Transfer Ability Level of Assist Moderate Assistance,1 Person Assistance,Use of Upper Extremities Comments Mobility Comments completed supine to sit with HOB elevated SBA. pt has an adjustable bed at home. completed sit to stand min A and requires min A to maintain standing during initial standing with increase posterior LOB requiring assist and cues to move trunk forward. ambulated using quad cane min A towards the toilet . required CGA to min A to maintain standing while managing brief. completed sit to stand from the toilet min A and ambulated towards the chair using quad cane min A. pt completed more ambulation ~ 25 ft x 3 min A and max cues. pt agreed to sit up on chair . positioned on chair. call light and table placed within reach. Gait Assessment Gait Gait Assistance Required: Minimum Assistance,1 Person Assist Distance (Feet) 25 Assistive Devices Assistive Device Gait Belt,Small Based Quad Cane Orthotic/Prosthetic Devices or Brace: No Gait Deviations General Gait Pattern Antalgic,Narrow Based Gait, Step-to Gait Factors Limiting Gait Function Factors Limiting Gait Function Decreased Activity Tolerance, Decreased Strength,Difficulty Following Directions,Limited Range of Motion,Pain,Poor Balance,Poor Safety Awareness Comments Gait Comments amublated using quad cane 25 ft x 3 min A and max cues. presents with unsteady gait with narrow MARCO A. cued to increase step width but pt with difficulty following direction. PT-Balance Assessment Sitting Balance and Reactions Static Sitting Balance Ability Good Dynamic Sitting Balance Ability Good Standing Balance and Reactions Static Standing Balance Ability Fair Dynamic Standing Balance Ability Fair Device Used quad cane M5 PT-IP Objective Assessments Start: 03/25/20 13:48 Freq: NEEDED Status: Active Protocol: Document 03/25/20 10:18 AB (Rec: 03/25/20 14:06 AB [id number]) Orientation Orientation/Cognition Level of Alertness Alert Orientation Name,Place,Situation Safety Awareness Decreased Safety Awareness Memory Description Short Term Impaired Gross Range of Motion Lower Extremity ROM Assessment Within Functional Limits Strength Lower Extremity Strength Assessment Right Impaired Hip 4-/5 Knee 3+/5 Ankle 3-/5 M6 PT-IP Treatment Start: 03/25/20 13:48 Freq: NEEDED Status: Active Protocol: Document 03/25/20 10:18 AB (Rec: 03/25/20 14:06 AB [id number]) Physical Therapy Treatment Education Education Provided Safety M7 PT-IP Assessment and Plan Start: 03/25/20 13:48 Freq: NEEDED Status: Active Protocol: Document 03/25/20 10:18 AB (Rec: 03/25/20 14:06 AB [id number]) PT Summary Assessment and Plan Potential Rehabilitation Potential Good Status of Condition at Evaluation Stable Summary Impairments Pain,ROM,Strength,Balance, Coordination,Sensation,Tone, Cognition,Bed Mobility, Transfers,Gait,Activity Tolerance Assessment Summary pt requiring min A with mobility and plans to go home with spouse to assist. pt with h/o recent stroke 02/20/20 and spouse has been assisting pt but pt was only needed SBA. pt was receiving homehealth services. d/c plan depending on assistance the spouse will be able to provide and caregiver training will be conducted when needed. pt also has steps to get into the house and to bedroom level and will be completed prior to d/c. will continue to assess progress. Goals Bed Mobility Goal Independent Transfer Goal Independent,Cane Gait Goal Independent,Cane Gait Distance 100 Days to Meet Goals 5 Frequency of Treatment Frequency Of Treatment Once a Day Treatment Plan Physical Therapy Treatment Plan Bed Mobility Training,Transfer Training,Gait Training, Therapeutic Exercise,Balance Retraining,Discharge Planning, Hot or Cold Pack,Neuromuscular Re-ed Recommendations To Nursing Amount of Assist Needed 1 Person Assist Discharge Recommendations PT Discharge Recommendations Home with 24/7 Assist,Home Health Transportation Needs at Discharge Private Vehicle
--- NOTE | 2020-03-25 11:33 | PC.NURSE ---
Pt alert and oriented offers no c/o pain or issues overtly though will state ribs hurt when asked. Pt otherwise content to bein bed and up in chair. Pt resting comfortably at present. Dr. Calle in to see Pt saying that she could go home today though it is up to Dr. Temple. continues at bedside.
--- NOTE | 2020-03-25 13:22 | CM.DANOTE ---
Discharge Planning/Care Management DCP: assessment: case received, EMR reviewed and met with pt and her . Introduced self and role. Pt is an 84 year old female who tripped and fell at home and admitted last night to care of her PCP: Dr. Temple. Consulting: surgeon: Dr. Calle Payer: Medicare and [employer]. Admission status: changed from INPT to OBS today: confirmed by UR RN Paulette. OF NOTE: pt was in ER in January with a CVA, transferred to [facility] and then later to inpt rehab in [place]. She has been home about 3 weeks and cared for by her . [facility] are seeing pt for RN/OT/PT with UX DEVELOPER to come in when they have an UX DEVELOPER on the team (per pt's ). They wish to continue with the agency. Dr. Calle has consulted and ok'd pt for return home when ok'd by Dr. Temple. Pt and say that Dr. Temple stopped by briefly today, said she was reviewing tests and that pt would likely go home later today or tomorrow. Will follow. Will update [facility] upon d/c and fax clinicals and resume orders. If pt is not here in the morning, will still follow up as noted with [facility]. Advanced directive, confirm from FAMILY Start: 03/24/20 23:23 Freq: Q24H Status: Active Protocol: Document 03/24/20 23:23 [facility] (Rec: 03/24/20 23:23 [facility] [id number]) Advance Directive, confirm on record Time 23:23 Person contacted Bill spouse Copy received No CM Discharge Assessment Start: 03/25/20 13:21 Freq: Status: Active Protocol: Document 03/25/20 13:21 ITV (Rec: 03/25/20 13:22 ITV [id number]) Discharge Planning Assessment Advance Directives? Yes Advance Directives on File No History Provided By Patient,Family Member,Medical Record Prior Living Arrangements House Household Members spouse Independent with ADL's No Is patient alert and oriented? Yes DME Already Rented / Owned Cane Comment uses quad cane at home If patient plan is home with home health Yes : Has signed face to face form been completed? Comment will resume [facility] services Review Status In Process
--- NOTE | 2020-03-25 18:05 | PC.NURSE ---
Addendum entered by Sally Lobato R.N. 03/25/20 22:08: Pt had uneventful evening. HS CBG 88, Med w/norco @ 1925 w/good relief. Tele SB per ICU staff. Pt hoping to D/C tomorrow. Call light w/in reach, bed alarm on for pt safety. Continue w/plan of care. Original Note: Pt resting @ intervals, denies discomfort when asked. Lungs clear, SpO2 96% RA UA sent to lab. HL LAC intact/patent. AC CBG 151, no S/S ordered. Tele SB per ICU staff. Call light w/in reach, bed alarm on for pt safety.
[2020-03-25] MEDS: HYDROCODONE/ACET 5/325 TABLET 1 TAB PO (19:25)
[2020-03-26 03:25] VITALS: BP 163/72; PULSE 48; RESP 15; TEMP 36.5; O2SAT 96
[2020-03-26 04:06] VITALS: BP 163/72; PULSE 48; RESP 15; TEMP 36.5; O2SAT 96
--- NOTE | 2020-03-26 06:18 | PC.NURSE ---
Addendum entered by Carissa Vanegas R.N. 03/26/20 06:21: also pt is very unbalanced when trying to sit down on toilet. Definitely needs a 1p SBA to help ease her down Original Note: Pt only able to reach about 500 on Incentive spirometer... encouraging her to do it a lot slow with long deep breaths but she mostly will only take in a short amount of air. Will continue to monitor. Denies any pain Tele: SB, 1st AVB HTN
[2020-03-26 06:36] LABS: Add Manual Diff / Slide Review NO; Basophils Absolute Auto 100 /uL (0-100); Basophils Percent Auto 0.6 % (0-2); Eosinophils Absolute Auto 100 /uL (0-450); Eosinophils Percent Auto 1.3 % (2-4); Hematocrit 37.2 % (36-46); Lymphocytes Absolute Auto 1500 /uL (1100-4500); Mean Corpuscular Hemoglobin 32.7 PG (26-34); Mean Corpuscular Volume 93.4 fL (80-100); Monocytes Absolute Auto 900 /uL (0-900); Monocytes Percent Auto 9.8 % (3-14); Neutrophils Absolute Auto 6800 /uL (1500-7000); Neutrophils Percent Auto 72.3 % (50-75); Platelet Count 244 X10^3/uL (150-400); Red Blood Cell Count 3.98 X10^6/uL (4.0-5.2); Red Cell Distribution Width 13.5 % (11.6-14.8); White Blood Cell Count 9.4 X10^3/uL (4.5-11.0)
[2020-03-26 06:44] LABS: Alanine Aminotransferase 55 IU/L (<35); Albumin 3.7 g/dL (3.5-5.0); Albumin Globulin Ratio 1.2 (1.0-2.8); Alkaline Phosphatase 78 U/L (38-126); Aspartate Aminotransferase 55 IU/L (14-36); BUN Creatinine Ratio 28.1 (6-22); Bilirubin Total 0.6 mg/dL (0.2-1.3); Blood Urea Nitrogen 16 mg/dL (7-17); Calcium 9.4 mg/dL (8.4-10.2); Carbon Dioxide 31 mmol/L (22-32); Chloride 104 mmol/L (98-107); Estimated Glomerular Filt Rate > 60.0 mL/min (>60); Glucose 91 mg/dL (80-110); HEMOLYSIS < 15 (0-50); Potassium 3.4 mmol/L (3.4-5.1); Sodium 138 mmol/L (137-145); Total Protein 6.7 g/dL (6.3-8.2)
[2020-03-26 07:36] VITALS: BP 173/73; PULSE 53; RESP 15; TEMP 36.1; O2SAT 95
--- NOTE | 2020-03-26 08:21 | PC.NURSE ---
Addendum entered by Chip Mendoza R.N. 03/26/20 13:56: 13:45 Pt and ready for d/c. Dr. Temple in to write orders and discuss plan with Pt and spouse. Pt readied for d/c, instructions given, Iv discontinued per protocal. PT dressed and escorted to car via w/c by LEELEE Nelson Addendum entered by Chip Mendoza R.N. 03/26/20 08:35: Pt up in chair as noted SCD's off for activity. IV site patent and intact. Original Note: Pt alert and oriented asking about going home. attentive at bedside. Pt offers no overt c/o pain other than tegaderm over IV pulling. Site assessed. explained to Pt it needs to stay in place at the present time. Pt up in chair working on b'fast.
[2020-03-26 09:42] VITALS: BP 173/73; PULSE 53
[2020-03-26] MEDS: lisinopriL 10 MG TABLET PO (09:42)
[2020-03-26] MEDS: AMLODIPINE 5 MG TABLET 10 MG PO (09:43)
[2020-03-26 11:20] VITALS: BP 145/63; PULSE 60; RESP 16; TEMP 36.8; O2SAT 93
--- NOTE | 2020-03-26 13:03 | PT.IPTN ---
Current Diagnoses Unspecified sequelae of cerebral infarction (03/24/20) Multiple fractures of ribs, right side, initial encounter for closed fracture (03/24/20) Traumatic pneumothorax, initial encounter (03/24/20) Contusion of liver, initial encounter (03/24/20) Unspecified fall, initial encounter (03/24/20) manager intermediate (current) use of anticoagulants (03/24/20) Physical Therapy Treatment Note M2 PT-IP Current Condition Start: 03/25/20 13:48 Freq: NEEDED Status: Active Protocol: Document 03/25/20 10:18 AB (Rec: 03/25/20 14:06 AB [id number]) Physical Therapy Current Condition Current Condition Evaluation Date 03/25/20 Treatment Diagnosis s/p fall w/ R 6th rib fx & pneumothorax; recent CVA, difficulty in walking Onset Date 03/24/20 Precautions Other Precautions falls M3 PT-IP Subjective Start: 03/25/20 13:48 Freq: NEEDED Status: Active Protocol: Document 03/26/20 12:26 [place] (Rec: 03/26/20 13:03 LJ [id number]) Subjective Physical Therapy Visit Type Type Treatment Note Visit Start Time 12:26 Visit Stop Time 12:43 Total Visit Minutes 17 Number of MANAGER CREATIVE SERVICES Visits 1 Physical Therapy Visit Comments Patient Comments pt agreeable to do PT. in room with pt Therapy Pain Assessment Pain When Pain Assessed During Mobility Pain Present Pain Present Pain Reported M4 PT-IP Mobility and Gait Start: 03/25/20 13:48 Freq: NEEDED Status: Active Protocol: Document 03/26/20 12:26 [place] (Rec: 03/26/20 13:03 LJ [id number]) PT-Bed Mobility Assessment Rolling Type of Rolling Roll to Right Supine to Sit Supine to Sit Standby Assistance,Head of Bed Elevated Scooting Scooting to Edge of Bed Standby Assistance PT-Transfer Assessment Sit to and From Stand Sit to and from Stand Standby Assistance,Use of Upper Extremities Equipment Transfer Assistive Device Gait Belt,Small Based Quad Cane Orthotic/Prosthetic Devices or Brace: No Transfers Transfer Destination Chair Transfer Technique ambulated using quad cane Transfer Ability Level of Assist Contact Guard Assistance,Use of Upper Extremities Comments Mobility Comments Pt completed logroll SBA. Sit< >stand SBA-CGA for stabilizing prior to ambulation. Pt able to return to bed SBA and able to position self in bed. Gait Assessment Gait Gait Assistance Required: Contact Guard Assist Distance (Feet) 200 Assistive Devices Assistive Device Gait Belt,Small Based Quad Cane Orthotic/Prosthetic Devices or Brace: No Gait Deviations General Gait Pattern Antalgic,Narrow Based Gait, Step-to Gait Factors Limiting Gait Function Factors Limiting Gait Function Decreased Activity Tolerance, Decreased Strength,Difficulty Following Directions,Limited Range of Motion,Pain,Poor Balance,Poor Safety Awareness Comments Gait Comments Pt ambulated in hallway CGA using quad cane. Unsteady gait using pulido railing periodically during gait. Still having narrow MARCO A. M5 PT-IP Objective Assessments Start: 03/25/20 13:48 Freq: NEEDED Status: Active Protocol: Document 03/25/20 10:18 AB (Rec: 03/25/20 14:06 AB [id number]) Orientation Orientation/Cognition Level of Alertness Alert Orientation Name,Place,Situation Safety Awareness Decreased Safety Awareness Memory Description Short Term Impaired Gross Range of Motion Lower Extremity ROM Assessment Within Functional Limits Strength Lower Extremity Strength Assessment Right Impaired Hip 4-/5 Knee 3+/5 Ankle 3-/5 M6 PT-IP Treatment Start: 03/25/20 13:48 Freq: NEEDED Status: Active Protocol: Document 03/26/20 12:26 LJ (Rec: 03/26/20 13:03 LJ [id number]) Physical Therapy Treatment Education Education Provided Safety M7 PT-IP Assessment and Plan Start: 03/25/20 13:48 Freq: NEEDED Status: Active Protocol: Document 03/26/20 12:26 LJ (Rec: 03/26/20 13:03 LJ [id number]) PT Summary Assessment and Plan Potential Rehabilitation Potential Good Summary Impairments Pain,ROM,Strength,Balance, Coordination,Sensation,Tone, Cognition,Bed Mobility, Transfers,Gait,Activity Tolerance Assessment Summary Pt requiring CGA during ambulation. Still unsteady during gait which appears to be chronic. attentive and good support system at home. Pt has met goals and is safe to d/c home Goals Bed Mobility Goal Independent Transfer Goal Independent,Cane Gait Goal Independent,Cane Gait Distance 100 Days to Meet Goals 5 Frequency of Treatment Frequency Of Treatment Once a Day Treatment Plan Physical Therapy Treatment Plan Bed Mobility Training,Transfer Training,Gait Training, Therapeutic Exercise,Balance Retraining,Discharge Planning, Hot or Cold Pack,Neuromuscular Re-ed Recommendations To Nursing Amount of Assist Needed 1 Person Assist Discharge Recommendations PT Discharge Recommendations Home with 21/04 Assist,Home Health Transportation Needs at Discharge Private Vehicle
[2020-03-26] MEDS: HYDROCODONE/ACET 5/325 TABLET 1 TAB PO (13:17)
--- NOTE | 2020-03-26 13:20 | PM.DS.1 ---
History of Present Illness History of Present Illness Chief complaint: GLF,chest pain since fall,on eliquis Narrative: This pleasant 84-year-old female with multiple medical problems and a rather tumultuous recent course presents to the emergency room via private vehicle after a fall where she tripped over her right foot that she currently has mild hemiparesis on the right side from her recent CVA on 02/20/2020. She fell and hit her right side and was evaluated in the emergency room and found to have a 6th rib lateral of right fracture with a small pneumothorax as well as a known hepatic cyst which appears to have bled into the cyst. She was admitted overnight for further observation and monitoring. Patient denies any complaints. She slept okay. Her pain is fairly well controlled on the hydrocodone. This represents her 3rd fall. She is progressing with home physical therapy speech therapy and occupational therapy but yet falls as above. She denies any pre to her head her was right next to her and observed the fall. Patient did not receive lunch or dinner yesterday and is currently eating breakfast without difficulty. She did and Past medical history: 1. CVA 02/20/2020 thought to be secondary to new onset atrial fibrillation, treated at [facility] with residual right hemiparesis. Patient was in inpatient rehab for approximately a week and was discharged home about 3 weeks ago. She has done fairly well at home. She was started on Eliquis and antihypertensives were modified. It was an acute ischemic left MCA stroke status post tPA 2. Stage I adenocarcinoma of the stomach 3. Abdominal aortic aneurysm status post stenting 4. Perinephric hematoma left side as complication of stenting abdominal aortic aneurysm Assessment 5. Type 2 diabetes 6. Diabetic nephropathy 7. Hypertension 8. Hyperlipidemia 9. Osteopenia 10. Status post right hip fracture 11. Status post vertebral compression fracture 12. Hepatic cyst 13. Colonic polyps 14. History of tobacco VS 15. Paroxysmal atrial fibrillation 1st diagnosed in January of 2020 when she had her CVA Past surgical history: Surgical repair of hip fracture Partial gastrectomy Stenting abdominal aortic aneurysm Health heard a behavior: Previous tobacco abuse No alcohol Active at home prior to CVA Social history: Patient is to her current for over 60 years. They live on [address] [facility]. They live together in a house. is very supportive. Patient has children close by who are supportive and helpful Review of system Negative for headache Negative for loss of consciousness or head injury Negative for chest pain Negative for palpitation Negative for GI symptoms Mobility has been improving Negative for anxiety or depression Review of systems otherwise negative Negative shortness of breath Discharge Providers Provider Date of admission: 03/24/20 22:03 Discharge Date: 03/26/20 Primary care physician: Akiko Temple MD Consults: 03/24/20 21:01 Consult to General Surgery Stat Comment: Consulting Provider: Jerrica Cavazos Reason for consultation: rib fx, trauma Has provider been notified: Yes 03/24/20 21:17 Consult to Physician Urgent Comment: Consulting Provider: Akiko Temple Reason for consultation: Admission Has provider been notified: Yes 03/24/20 23:22 Consult to Dietitian, Adult Routine Comment: Reason For Exam: increase weight loose. Consult to Pastoral Services Routine Comment: desires [facility] pastoral services to visit 03/25/20 08:30 Consult to Physical Therapy Evaluate & Treat Comment: cva, right hemiparesis; falls Physician Instructions: Evaluate and Treat 03/25/20 13:17 Consult to Home Health Routine Comment: Angelica has been seeing pt at home Reason For Exam: Resume services at d/c Discharge provider: Akiko Temple MD Summary Hospital Course Discharge Diagnosis: Status post fall Sixth right rib fracture with associated small pneumothorax, continues to be stable with conservative treatment. Not noted on chest x-ray yesterday. Hemoglobin hematocrit stable Possible hemorrhage into liver cyst, stable Hospital Course: Patient sustained a fall at home tripping over her right foot which she has right hemiparesis from a ischemic CVA that she had in January. She is found to have a right rib fracture with a small pneumothorax and possible bleeding into a known right hepatic cyst. She was monitored in the hospital for almost 48 hours. Her hemoglobin hematocrit remained stable. Her repeat chest x-ray 24 hours after the fall showed no evidence of a pneumothorax but the original pneumothorax was visualized on CT scan. She remained without shortness of breath and stable on room air. She had no complications. She was discharged home on hospital day 2. In stable condition. She has follow-up physical therapy tomorrow and has follow-up with the neurologist tomorrow as well. She will continue on her home medications except we will hold the Eliquis until tomorrow. 35 minutes spent with patient in coordination of care Status at Discharge Cognitive/behavioral status at discharge: oriented Functional status at discharge: uses cane/walker Overall status at discharge: patient is progressing back to baseline Exam Vital Signs (past 8 hours): - 03/26/20 07:36 03/26/20 09:42 03/26/20 11:20 Temperature 97.0 F L 98.3 F Pulse Rate 53 L 53 L 60 Respiratory Rate 15 16 Blood Pressure 173/73 H 173/73 H 145/63 H Pulse Oximetry 95 93 Oxygen Delivery Method Room Air Oxygen Flow Rate 0 Narrative Exam Narrative: Afebrile vital signs are stable she has had some elevated blood pressures but most recent ones are normal after her antihypertensive She is alert and oriented x3 in no apparent distress Neck is supple Chest: Clear to auscultation without wheezes rhonchi or crackles Cor: Regular rate and rhythm without murmur. No ectopy. No evidence of atrial fibrillation Abdomen: Positive bowel sounds, soft, nontender. No tenderness over her liver. She is tender at the ribs cost 0 lateral angle. Is tender over the area of fracture Extremities: No edema pulses intact Neurologic exam unchanged Objective Labs Result Diagrams: 03/26/20 05:53 03/26/20 05:53 Labs: Laboratory Results - last 24 hr 03/26/20 03/26/20 05:53 05:53 WBC 9.4 RBC 3.98 L Hgb 13.0 Hct 37.2 MCV 93.4 MCH 32.7 MCHC 35.0 RDW 13.5 Plt Count 244 Neut % (Auto) 72.3 Lymph % (Auto) 16.0 L [place] % (Auto) 9.8 Eos % (Auto) 1.3 L Baso % (Auto) 0.6 Neut # (Auto) 6800 Lymph # (Auto) 1500 [place] # (Auto) 900 Eos # (Auto) 100 Baso # (Auto) 100 Sodium 138 Potassium 3.4 Chloride 104 Carbon Dioxide 31 BUN 16 Creatinine 0.57 Estimated GFR > 60.0 BUN/Creatinine Ratio 28.1 H Glucose 91 Calcium 9.4 Total Bilirubin 0.6 AST 55 H ALT 55 H Alkaline Phosphatase 78 Total Protein 6.7 Albumin 3.7 Globulin 3.0 Albumin/Globulin Ratio 1.2 Discharge Plan Discharge Plan Patient Disposition: Home Discharge orders & Medications Prescriptions: New hydrocodone-acetaminophen 5-325 mg Tablet 1 tab PO Q4HR PRN (Reason: Pain, Mild (1-3)) Qty: 30 RF: 0 Continued LISINOPRIL (Zestril / Prinivil) 10 mg PO Q DAY Qty: 0 RF: 0 POLYETHYLENE GLYCOL 3350 17 gm PO PRN PRN (Reason: Constipation) Qty: 0 RF: 0 amlodipine [Norvasc] 5 MG tablet 10 mg PO QDAY Qty: 0 RF: 0 metoprolol tartrate 25 MG tablet 12.5 mg PO BID Qty: 0 RF: 0 Discontinued Eliquis 2.5 mg Tablet 2.5 mg PO BID RF: 0 Follow up/Referrals: Akiko Temple MD [Primary Care Provider] - Discharge Data Primary Care Provider: Akiko Temple Attending Provider: Akiko Temple Admit Date/Time: 03/24/20 22:03 Quality VTE Deep Vein Thrombosis/Pulmonary Embolism Present on Admission: No
--- NOTE | 2020-03-26 16:41 | CM.DPC ---
DCP: continued: Dr. Temple was here this afternoon and ok'd pt for home. Have now faxed d/c summary, OBS status infor and Resume HH orders to [facility] as per plan. Pt left for home accompanied by her as per plan.
== END 2020-03-26 13:45 | disposition home or self-care (01) ==
LOC: ED 21:00 → AC 03-25 13:32
PROVIDERS: Admitting Provider Family Medicine; Emergency Provider Emergency Medicine; PCP Family Medicine; Referring Provider Emergency Medicine; Visit Provider Family Medicine
DX: S27.0XXA Traumatic pneumothorax, initial encounter (principal); R07.9 Chest pain, unspecified; S22.31XA Fracture of one rib, right side, initial encounter for closed fracture; W01.0XXA Fall on same level from slipping, tripping and stumbling without subsequent striking against object, initial encounter; Y92.009 Unspecified place in unspecified non-institutional (private) residence as the place of occurrence of the external cause; I48.0 Paroxysmal atrial fibrillation; Z79.01 Long term (current) use of anticoagulants; I10 Essential (primary) hypertension; Z87.440 Personal history of urinary (tract) infections; E11.9 Type 2 diabetes mellitus without complications; I69.351 Hemiplegia and hemiparesis following cerebral infarction affecting right dominant side; Z11.59 Encounter for screening for other viral diseases
CPT/HCPCS: 36415; 71045; 71260; 74177; 80048; 80053; 83690; 84484; 85025; 85610; 85730; 87077; 87086; 87186; 87635; 93005; 96374; 96375; 97116; 97161; 99284; G0378; J1200; J2930

== ENCOUNTER 2020-03-27 16:18 | Inpatient (IN) | payer MEDICARE, OTHER, SELFPAY ==
[2020-03-24 23:14] VITALS: BMI 18.9
[2020-03-27 16:30] VITALS: BP 123/77; PULSE 69; RESP 20; O2SAT 95
--- NOTE | 2020-03-27 16:36 | DI.CT.S_ITS ---
PROCEDURE: CT STROKE INDICATIONS: r/o stroke TECHNIQUE: Noncontrast 4.5 mm thick angled axial sections acquired from the foramen magnum to the vertex, with coronal reformats. For radiation dose reduction, the following was used: automated exposure control, adjustment of mA and/or kV according to patient size. COMPARISON: [facility], CT, CT HEAD/BRAIN WO CON, 02/20/2020, 7:11. [facility], MR, MR STROKE, 02/20/2020, 8:42. FINDINGS: Image quality: Excellent. CSF spaces: Basal cisterns are patent. Prominent extra-axial spaces. Ventricles are normal in size and shape. Brain: No midline shift. No intracranial masses or hemorrhage. New moderate-sized area of hypodensity in the left frontal lobe compared to CT 02/20/2020. Periventricular hypodensity consistent with chronic microvascular ischemic disease. Age related parenchymal loss. Skull and face: Calvarium and visualized facial bones are intact, without suspicious lesions. Sinuses: Visualized sinuses and mastoids are clear. IMPRESSION: New area of hypodensity in the left frontal lobe compared to the CT 02/20/2020. Suspect subacute or chronic infarction. No acute intracranial hemorrhage. Results were discussed with Dr. Anupama Archer in the emergency department at time of dictation. Report that the patient's neurologic symptoms are slightly worse compared to new baseline. This study fulfills neurological imaging criteria for inclusion or exclusion of acute stroke therapies based on available published neurological imaging guidelines. Dictated by: Mega Amezcua M.D. on 03/27/2020 at 16:56 Approved by: Mega Amezcua M.D. on 03/27/2020 at 17:04
--- NOTE | 2020-03-27 16:43 | ED.NEUROSD ---
HPI - Neuro Symptoms/Deficit General Chief Complaint: Neuro Symptoms/Deficit Stated Complaint: Stroke Like Symptoms, Can't Stand, Slurred Speech Time Seen by Provider: 03/27/20 16:36 Source: patient and family Mode of arrival: Ambulatory History of Present Illness HPI Narrative: 84-year-old woman presents with worsening will right side weakness after upon awaking this morning. She has a complex medical history with a stroke causing right-sided weakness on February 19 with an ischemic left MCA stroke that did receive tPA and new onset atrial fibrillation. She had been discharged home with Eliquis and blood pressure medications and had been improving. She had a ground level fall on March 24 with rib fracture, small pneumothorax and bleeding into a hepatic cyst. She was hospitalized until the afternoon of the . She went to bed and was in her usual state of improving health at 8:00 a.m. last night and when she woke up this morning her notes that her right arm and leg are increasingly weak(almost as bad as with the initial stroke a month ago), increased dysarthria and perhaps some receptive aphasia as well. She did not receive her Eliquis last night due to the fall and hepatic cyst bleeding. On Anticoagulants: Yes Related Data Home Medications Medication Instructions Recorded Confirmed LISINOPRIL (Zestril / Prinivil) 10 mg PO Q DAY #0 09/02/07 03/24/20 POLYETHYLENE GLYCOL 3350 17 gm PO PRN PRN #0 09/20/16 03/24/20 amlodipine [Norvasc] 10 mg PO QDAY #0 09/20/16 03/24/20 metoprolol tartrate 12.5 mg PO BID #0 09/20/16 03/24/20 Previous Rx's Medication Instructions Recorded hydrocodone-acetaminophen 1 tab PO Q4HR PRN #30 tab 03/26/20 Allergies Allergy/AdvReac Type Severity Reaction Status Date / Time atenolol [ATENOLOL] Allergy Severe RESP Verified 09/26/19 11:01 DISTRESS [id number]-Xrz Reductase Allergy Severe RESP Verified 09/26/19 11:01 Inhibitor DISTRESS [[id number] REDUCTASE INHIBITOR] levofloxacin [From LEVAQUIN] Allergy Intermediate swollen Verified 09/26/19 11:01 tongue sertraline [From ZOLOFT] Allergy Mild UNSURE Verified 09/26/19 11:01 Iodine and Iodide Containing Allergy Verified 09/26/19 11:01 Produc Review of Systems Review of Systems Narrative: Pertinent positive and negative findings as per HPI Remainder of review of systems is otherwise unremarkable for Constitutional: Fevers, chills, ENT: No sore throat, neck pain, ear pain CV: Chest pain, palpitations, dyspnea on exertion Respiratory: Cough, wheeze, dyspnea GI: Nausea, vomiting, diarrhea, change in bowel habits, black or bloody stools : Dysuria, hematuria, flank pain Patient History Medical History Acute post-hemorrhagic anemia (Inactive) Anxiety (Inactive) Fracture of distal fibula (Inactive) Gastritis (Inactive) H/O: stroke with residual effects (Acute) Hip dislocation, right (Inactive) Hypertension (Acute) Palpitations (Inactive) Paroxysmal atrial fibrillation (Acute) Posthemorrhagic anemia (Inactive) UTI (urinary tract infection) (Inactive) Surgical History S/P hip hemiarthroplasty (Inactive) S/P total hip arthroplasty (Acute) Social History household members: spouse Smoking Status: Never smoker alcohol intake: never Smoking Status: Never smoker Substance Use Type: does not use Exam Narrative Exam Narrative: General: Frail-appearing, no acute distress, protecting her airway HEENT: Moist mucous membranes, normal sclera with reactive pupils, Neck: supple Respiratory: Lungs are clear to auscultation, no wheezing no rales no rhonchi. Full and symmetrical air movement Cardiac: Regular rate and rhythm no murmurs no bruits Abdomen: Soft nontender good bowel tones, no flank pain Skin: Warm and dry, no rashes Extremities: Pain at the right knee cap with no abrasions or contusions, well perfused Neuro: NIHSS =8 NIH Stroke Scale/Score (NIHSS) from [facility] [email or web address] on 03/27/2020 RESULT SUMMARY: 8 points NIH Stroke Scale INPUTS: 1A: Level of consciousness ?> 1 = Arouses to minor stimulation 1B: Ask month and age ?> 0 = Both questions right 1C: 'Blink eyes' & 'squeeze hands' ?> 0 = Performs both tasks 2: Horizontal extraocular movements ?> 0 = Normal 3: Visual taylor ?> 0 = No visual loss 4: Facial palsy ?> 1 = Minor paralysis (flat nasolabial fold, smile asymmetry) 5A: Left arm motor drift ?> 0 = No drift for 10 seconds 5B: Right arm motor drift ?> 1 = Drift, but doesn't hit bed 6A: Left leg motor drift ?> 0 = No drift for 5 seconds 6B: Right leg motor drift ?> 1 = Drift, but doesn't hit bed 7: Limb Ataxia ?> 2 = Ataxia in 2 Limbs 8: Sensation ?> 0 = Normal; no sensory loss 9: Language/aphasia ?> 1 = Mild-moderate aphasia: some obvious changes, without significant limitation 10: Dysarthria ?> 1 = Mild-moderate dysarthria: slurring but can be understood 11: Extinction/inattention ?> 0 = No abnormality Initial Vital Signs Initial Vital Signs: Vital Signs Pulse Rate 69 03/27/20 16:30 Respiratory Rate 20 03/27/20 16:30 Blood Pressure 123/77 03/27/20 16:30 Pulse Oximetry 95 03/27/20 16:30 Course Orders Ordered: ED Orders 03/27/20 16:36 CT Stroke Stat 03/27/20 16:47 Complete Blood Count AUTO DIFF Stat Comprehensive Metabolic Panel Stat Troponin & CK Cardiac Panel Stat 03/27/20 17:28 Urinalysis and Microscopic Stat Sodium Chloride (Normal Saline 0.9%) 1,000 mls @ 150 mls/hr IV CONT LIZETH Vital Signs Vital signs: Vital Signs - 8 hr 03/27/20 16:30 03/27/20 16:58 Pulse Rate 69 75 Respiratory Rate 20 16 Blood Pressure 123/77 Pulse Oximetry 95 MDM - Neuro Symptoms/Deficit Lab Data Result diagrams: 03/27/20 16:47 03/27/20 16:47 Labs: Point of Care Testing Glucose POC [address] scan - head: Radiologist's Impression: IMPRESSION: New area of hypodensity in the left frontal lobe compared to the CT 02/20/2020. Suspect subacute or chronic infarction. No acute intracranial hemorrhage. Results were discussed with Dr. Anupama Archer in the emergency department at time of dictation. Report that the patient's neurologic symptoms are slightly worse compared to new baseline. This study fulfills neurological imaging criteria for inclusion or exclusion of acute stroke therapies based on available published neurological imaging guidelines. Dictated by: Mega Amezcua M.D. on 03/27/2020 at 16:56 ECG Data Attestation: I personally reviewed and interpreted this ECG as follows: Interpretation: Sinus rhythm at a rate of 75 occasional PACs Normal axis, normal intervals No acute ischemic changes MDM Narrative Medical decision making narrative: 84-year-old woman with worsening stroke symptoms after going to bed last night. Reviewed with stroke Neurology at [facility]. In comparison to last CT of the head done on March 05 the neurologist feels that it is and evolution of the prior stroke. She does not meet tPA criteria based on hospital admission for bleeding into a hepatic cyst for which she was discharged yesterday and unknown time of onset of the stroke and recent stroke within less than 30 days. In reviewing options and suggestions for management with Dr. Cates, [facility] stroke neurologist, his recommendation at this point with supportive care and as soon as she is able to continue on an aspirin a day. Of note EKG today reveals sinus rhythm as it was on March 24. Will admit to the hospital for rehab reassessment and help with safe discharge planning whether this is another inpatient rehab stay or she is able to go home will need to be further evaluated. 540pm reviewed with Dr. Vyas, will admit. Discharge Plan Departure Patient Disposition: Admitted As Inpatient Clinical Impression: Stroke Qualifiers: CVA mechanism: unspecified Qualified Code(s): I63.9 - Cerebral infarction, unspecified Referrals: Akiko Temple MD [Primary Care Provider] -
[2020-03-27 16:58] VITALS: PULSE 75; RESP 16; O2SAT 95
[2020-03-27 17:30] VITALS: BP 151/69; PULSE 66; RESP 21; O2SAT 96
[2020-03-27 17:39] LABS: Add Manual Diff / Slide Review NO; Basophils Absolute Auto 0 /uL (0-100); Basophils Percent Auto 0.1 % (0-2); Eosinophils Absolute Auto 0 /uL (0-450); Hematocrit 36.1 % (36-46); Hemoglobin 12.5 g/dL (12.0-16.0); Lymphocytes Absolute Auto 300 /uL (1100-4500); Mean Corpuscular HGB Conc 34.5 % (30-36); Mean Corpuscular Hemoglobin 32.2 PG (26-34); Mean Corpuscular Volume 93.4 fL (80-100); Monocytes Absolute Auto 500 /uL (0-900); Monocytes Percent Auto 3.6 % (3-14); Neutrophils Absolute Auto 13700 /uL (1500-7000); Neutrophils Percent Auto 94.3 % (50-75); Platelet Count 181 X10^3/uL (150-400); Red Blood Cell Count 3.87 X10^6/uL (4.0-5.2); Red Cell Distribution Width 13.3 % (11.6-14.8); White Blood Cell Count 14.6 X10^3/uL (4.5-11.0)
[2020-03-27 17:41] LABS: Alanine Aminotransferase 109 IU/L (<35); Albumin 3.9 g/dL (3.5-5.0); Albumin Globulin Ratio 1.2 (1.0-2.8); Alkaline Phosphatase 190 U/L (38-126); Aspartate Aminotransferase 131 IU/L (14-36); BUN Creatinine Ratio 34.2 (6-22); Blood Urea Nitrogen 27 mg/dL (7-17); Calcium 9.4 mg/dL (8.4-10.2); Carbon Dioxide 28 mmol/L (22-32); Chloride 97 mmol/L (98-107); Creatine Kinase < 20 U/L (30-135); Estimated Glomerular Filt Rate > 60.0 mL/min (>60); Globulin 3.3 g/dL (1.7-4.1); Glucose 145 mg/dL (80-110); HEMOLYSIS < 15 (0-50); Potassium 3.6 mmol/L (3.4-5.1); Sodium 132 mmol/L (137-145); Total Protein 7.2 g/dL (6.3-8.2)
[2020-03-27] MEDS: HYDROCODONE/ACET 5/325 TABLET 1 TAB PO (17:59)
[2020-03-27] MEDS: SODIUM CHLORIDE 0.9% 1,000 ML 150 ML IV (17:59)
[2020-03-27 18:15] LABS: Troponin I 0.029 ng/mL (0.01-0.034)
[2020-03-27 18:30] VITALS: BP 141/64; PULSE 63; RESP 17; TEMP 36.4
[2020-03-27 18:38] VITALS: BMI 16.0
--- NOTE | 2020-03-27 18:49 | P.HP_ITS ---
History of Present Illness History of Present Illness Date Patient Seen: 03/27/20 Time Patient Seen: 18:51 Date of Onset of Symptoms: 03/27/20 Chief complaint: Stroke Like Symptoms, Can't Stand, Slurred Speech Narrative: Patient 84-year-old female who I am cross covering for for Dr. Temple who was recently discharged from the hospital. Patient has had multiple issues over the course of the last month. Apparently on 02/20/2020 she had a left-sided CVA which affected both her speech in her right arm and leg. She was transferred to [facility] at that point no definitive treatment other than Eliquis was elicited. She apparently was in atrial fibrillation long was the cause of the stroke. She apparently went 1 week to rehab and then was sent home. According to her she was ambulating well. Was able to transfer on her own. Should almost completely recovered her verbal ability. Although not completely perfect. She was doing well around the house. She was doing home health and had been doing pretty well. Parent Michelle she had a recent fall which created a bleed into a right hepatic cyst and fracture of right 6th rib. And a small pneumothorax. She had been in the hospital from Friday until yesterday when she was discharged apparently doing well. She had went to sleep last night in bed doing well on then woke up and was much more weak on the right side. She was having difficulty mobilizing period was unable to transfer. Apparently the physical therapist came out she was able to get her up and move around some but much weaker than she had been and has been was noting that shoes speech was much worse. She has no headaches. No change in pain. She is having some right abdominal pain but that really isn't any different than it was yesterday. During her tele Neurologic old visit today apparently the neurologist recommended she come to the hospital. She was found to be significantly weaker than her previous evaluation she was undertaken with a CT scan which showed progression of her left CVA but no active bleeding. She had been stopped on her Eliquis due to her previous bleeds. Otherwise she has felt well. She has had no cough. No shortness of breath. No chest pain. No abdominal pain. No urinary changes. No bowel movement changes. Past medical history. One. Right hepatic cyst bleed. Stable. Was discharged yesterday. Two. Pneumothorax. Right period felt to be stable. Three. History of CVA. See above 4. period stage I adenocarcinoma the stomach Five. Abdominal aortic aneurysm status post stenting Six. Bhumika nephric hematoma left side as complication of stenting aortic an eurysm. Seven. Diabetic nephropathy Eight. Hyperlipidemia Nine. Hypertension 10. Osteopenia Eleven. Status post right hip fracture Twelve status post vertebral compression fracture 13. Hepatics cyst Fourteen. Colonic polyps Fifteen history of smoking Sixteen history of paroxysmal atrial fibrillation Past surgical history: Surgical repair of right hip fracture, partial gastrectomy, stenting abdominal aortic aneurysm. Health behavior. Previous tobacco abuse. Denies alcohol use. Active at home prior to CVA Social history to her current . Live on with the brandeis, [place] tan live nearby. Patient History Medical History Acute post-hemorrhagic anemia (Inactive) Anxiety (Inactive) Fracture of distal fibula (Inactive) Gastritis (Inactive) H/O: stroke with residual effects (Acute) Hip dislocation, right (Inactive) Hypertension (Acute) Palpitations (Inactive) Paroxysmal atrial fibrillation (Acute) Posthemorrhagic anemia (Inactive) UTI (urinary tract infection) (Inactive) Surgical History S/P hip hemiarthroplasty (Inactive) S/P total hip arthroplasty (Acute) Family & Social History Social History: household members spouse Tobacco & Substance use: Smoking Status Never smoker alcohol intake never Substance Use Type does not use Meds Home Medications and Allergies Home Medications Medication Instructions Recorded Confirmed Type LISINOPRIL (Zestril / Prinivil) 10 mg PO Q DAY #0 09/02/07 03/24/20 History POLYETHYLENE GLYCOL 3350 17 gm PO PRN PRN #0 09/20/16 03/24/20 History amlodipine [Norvasc] 10 mg PO QDAY #0 09/20/16 03/24/20 History metoprolol tartrate 12.5 mg PO BID #0 09/20/16 03/24/20 History hydrocodone-acetaminophen 1 tab PO Q4HR PRN #30 tab 03/26/20 Rx Allergies Allergy/AdvReac Type Severity Reaction Status Date / Time atenolol [ATENOLOL] Allergy Severe RESP Verified 09/26/19 11:01 DISTRESS Dpgektf-[id number]-Cvu Reductase Allergy Severe RESP Verified 09/26/19 11:01 Inhibitor DISTRESS [[id number] REDUCTASE INHIBITOR] levofloxacin [From LEVAQUIN] Allergy Intermediate swollen Verified 09/26/19 11:01 tongue sertraline [From ZOLOFT] Allergy Mild UNSURE Verified 09/26/19 11:01 Iodine and Iodide Containing Allergy Verified 09/26/19 11:01 Produc Review of Systems Review of Systems ROS: Yes All systems reviewed with the patient and are negative except as otherwise documented Exam Vital Signs (past 8 hours): - 03/27/20 16:30 03/27/20 16:58 03/27/20 17:30 Pulse Rate 69 75 66 Respiratory Rate 20 16 21 Blood Pressure 123/77 151/69 H Pulse Oximetry 95 96 Oxygen Delivery Method Room Air Narrative Exam Narrative: Alert elderly female lying in bed in no acute distress. Pupils are equal response to light. Normal movement. No oral lesions. Neck supple without adenopathy JVD or bruits. Lungs are clear. Heart regular rate and rhythm without murmurs clicks rubs or gallops. Abdomen is soft positive bowel sounds nontender. Extremities without cyanosis clubbing edema. Skin without rash or bruising. Neurologic exam. Patient has right-sided facial droop primarily below where I. Smile is all left-sided. She has is normal straight tongue. Is able to open her mouth and close her mouth. Speech is difficult to understand except for short words. Otherwise cranial nerves appear intact. Motor is 4/5 on right upper extremity and 3+ out of 5 in the right lower extremity. Left side is normal. Reflexes are slightly increased on the right side but otherwise normal. Psychologically she is alert oriented and interactive Objective Labs Result Diagrams: 03/27/20 16:47 03/27/20 16:47 Labs: Laboratory Results - last 24 hr 03/27/20 03/27/20 16:47 16:47 WBC 14.6 H D RBC 3.87 L Hgb 12.5 Hct 36.1 MCV 93.4 MCH 32.2 MCHC 34.5 RDW 13.3 Plt Count 181 Neut % (Auto) 94.3 H D Lymph % (Auto) 2.0 L [place] % (Auto) 3.6 Eos % (Auto) 0.0 L Baso % (Auto) 0.1 Neut # (Auto) 96191 H Lymph # (Auto) 300 L [place] # (Auto) 500 Eos # (Auto) 0 Baso # (Auto) 0 Sodium 132 L Potassium 3.6 Chloride 97 L Carbon Dioxide 28 BUN 27 H Creatinine 0.79 Estimated GFR > 60.0 BUN/Creatinine Ratio 34.2 H Glucose 145 H Calcium 9.4 Total Bilirubin 2.0 H AST 131 H ALT 109 H Alkaline Phosphatase 190 H D Total Creatine Kinase < 20 L CK-MB (CK-2) TNP CK-MB (CK-2) Rel Index TNP Troponin I 0.029 Total Protein 7.2 Albumin 3.9 Globulin 3.3 Albumin/Globulin Ratio 1.2 Assessment & Plan Assessment & Plan narrative: Progression of recent CVA. Patient was significant change in her speech and my concern is her swallowing. Until we have a speech evaluation out things safe for her to go home. Certainly we need to assess her for worsening. Kriss has been contacted the recommendation is for aspirin due to her bleeding issues she is not in AFib but really no other active treatment available. Will need to consider bleeding risk with her primary integrated logistics programs director given her recent bleed after fall. Patient with clear significant change. Will probably need rehab whether that is done inpatient or home is unclear at this time but at this point cannot go home until things are clear fight. Will begin physical therapy for an evaluation occupational therapy and speech therapy. Discussed with . He understands. Fluids electrolytes. Patient is going to be NPO and will start low rate basilar fluid resuscitation. Will follow. Hypertension. Will resume usual medicines. Blood pressure is still slightly elevated which at this point is probably a good thing. Will follow. Elevated white count. Etiology is unclear. Patient has a history of urinary tract infections. No evidence of a significant source at this time. Will obtain urine and culture if indicated. Treat if that shows anything. History of pneumothorax No evidence of recurrence normal exam. Patient is very comfortable History of recent bleed liver cyst. Due to the fact that she has not been 2 days out from her bleed I think it would be unwise to treat with any blood t zacknner at this time. We can see how things are stabilized and can not decision tomorrow could be made. Certainly whether we bleed or whether we have stroke concerning question. Will need to be discussed further with patient and her usual doctor. History of atrial fibrillation. Not active at this time will follow. History of rib fractures stable at this time. Patient with minimal pain will f ollow. Code status. Patient would like full code no intubation. GI prophylaxis. I do not think she needs to be actively prophylaxis at this time. Disposition. Will need to establish her ability to swallow. Certainly her speech has changed significantly will see how she does and hopefully can get her home unclear how long that will take and will depend on whether she worsens or not. No ability to actively change anything at this time. Both she and her understand. Dr. Temple will see her tomorrow.
--- NOTE | 2020-03-27 19:09 | PC.NURSE ---
Patient admitted from ER, able to walk from stretcher to bed. Per ED nurse, patient passed swallow test.
[2020-03-27 20:06] LABS: Appearance Urine UA CLOUDY; Bilirubin Urine UA NEGATIVE (NEGATIVE); Color Urine UA YELLOW; Glucose Urine UA NEGATIVE (Negative); Ketones Urine UA TRACE (NEGATIVE); Leukocyte Esterase Urine UA 1+ (NEGATIVE); Nitrite Urine UA NEGATIVE (Negative); Occult Blood Urine UA TRACE-INTACT (Negative); Protein Urine UA 1+ (Negative)
[2020-03-27 20:11] LABS: pH Urine UA 5.5 (4.5-8.0)
[2020-03-27 20:13] LABS: Bacteria Urine Moderate (10-30); Culture Indicated Urine Specimen Cultured; RBC Urine 0-1/HPF (0-5/HPF); Squamous Epithelial Cell Urine 1-5 /HPF (0-5/HPF); Transitional Epi Cells Urine 1-5/HPF (0-5/HPF); WBC Urine 5-10/HPF (0-5/HPF)
[2020-03-27] MEDS: DEXTROSE 5%-0.45% NS 1,000 ML 75 ML IV (20:24)
[2020-03-27] MEDS: METOPROLOL IR 25 MG TABLET 12.5 MG PO (20:25)
[2020-03-27] MEDS: HYDROCODONE/ACET 10/325 TABLET 1 TAB PO (22:04)
[2020-03-28 00:40] VITALS: BP 150/70; PULSE 64; RESP 16; TEMP 36.5; O2SAT 93
[2020-03-28 05:12] LABS: Add Manual Diff / Slide Review NO; Basophils Absolute Auto 0 /uL (0-100); Basophils Percent Auto 0.2 % (0-2); Eosinophils Absolute Auto 0 /uL (0-450); Hematocrit 36.4 % (36-46); Hemoglobin 12.5 g/dL (12.0-16.0); Lymphocytes Absolute Auto 400 /uL (1100-4500); Mean Corpuscular HGB Conc 34.3 % (30-36); Mean Corpuscular Hemoglobin 31.8 PG (26-34); Mean Corpuscular Volume 92.8 fL (80-100); Monocytes Absolute Auto 700 /uL (0-900); Monocytes Percent Auto 5.2 % (3-14); Neutrophils Absolute Auto 11900 /uL (1500-7000); Neutrophils Percent Auto 91.6 % (50-75); Platelet Count 151 X10^3/uL (150-400); Red Blood Cell Count 3.93 X10^6/uL (4.0-5.2); Red Cell Distribution Width 13.4 % (11.6-14.8)
[2020-03-28 05:16] LABS: BUN Creatinine Ratio 34.5 (6-22); Blood Urea Nitrogen 19 mg/dL (7-17); Calcium 9.2 mg/dL (8.4-10.2); Carbon Dioxide 28 mmol/L (22-32); Chloride 98 mmol/L (98-107); Estimated Glomerular Filt Rate > 60.0 mL/min (>60); Glucose 144 mg/dL (80-110); HEMOLYSIS < 15 (0-50); Potassium 3.6 mmol/L (3.4-5.1); Sodium 133 mmol/L (137-145)
[2020-03-28 05:29] VITALS: BP 154/75; PULSE 83; RESP 18; TEMP 36.5; O2SAT 93
[2020-03-28] MEDS: HYDROCODONE/ACET 10/325 TABLET 1 TAB PO ×3 (07:50→21:16)
--- NOTE | 2020-03-28 08:15 | ST.IPIE ---
ST IP Initial Evaluation Report CENTER LEAD CONSULTANT Clinical Swallow Evaluation Start: 03/28/20 10:07 Freq: Status: Active Protocol: Document 03/28/20 10:07 TLC (Rec: 03/28/20 10:26 TLC [id number]) Clinical Swallow Evaluation Session Time Visit Start Time 07:50 Visit Stop Time 08:15 Total Visit Minutes 25 Visit Information Visit Number 1 Referral Referring Physician Jeromy Vyas Reason for Referral CVA Setting Assessment Location Acute Care Visit Type Note Type Initial Evaluation Next Note Type Next Note Type Treatment Note Patient Information History Patient has history of CVA in January 2020 and was home receiving home health. Her brought her in after noticing increasing right sided weakness and slurred speech. CT shows New area of hypodensity in the left frontal lobe compared to the CT 02/20/2020. Suspect subacute or chronic infarction Subjective Observations Patient seen sitting up in bed with at bedside. Flat affect. Nursing in to administer pain meds at patient's request. Evaluation Liquids Trialed Thin Solids Trialed Puree,Dysphagia Mechanical Administration Type Self-Feeding Oral Impairment Moderately Impaired Oral Strategies Upright at 90 degrees,Lingual Sweep,Controlled Bite/Sip Size ,Alternate Liquids/Solids Oral Phase Comments Observed residual yogurt upon observation of patient's mouth . Oral mucosa was moist and pink. Patient with natural dentition and one lower bridge in good condition. Moderate difficulty with lingual range of motion and coordination due to right sided weakness. Observed right facial droop at rest and upon labial retraction. Patient instructed to use tongue sweep; though she had difficulty lateralizing tongue to right corner of mouth. reports this is ongoing since her last stroke and she is conscious of it when eating at home. She uses a napkin to clear residue from right corner of mouth. Instructed patient in liquid wash ( alternating liquids/solids) to minimize residue. Also discussed mirror use during meals to increase visual feedback. Pharyngeal Phase Comments No signs of pharyngeal impairment during trials of liquids and solids. Findings Dysphagia Type Oral Impressions Patient presents with moderate oral dysphagia secondary to impaired strength and range of motion of oral musculature. She is able to self-feed, but requires set up assistance due to right hand weakness. She was able to recall strategies educated on given min verbal cues. Diet Recommendations Liquids Order Thin Diet Order Dysphagia Mechanical Medication Recommendations As Tolerated Additional Dietary Needs Reminders to Use Strategies Aspiration Precautions Recommended Precautions Upright at 90 Degrees, Alternate Liquids/Solids,Small Bites/Sips,Lingual Sweep, Check for Pocketing [facility]ENTER LEAD CONSULTANT Language Evaluation Start: 03/28/20 10:07 Freq: Status: Active Protocol: Document 03/28/20 10:07 TLC (Rec: 03/28/20 10:26 TLC [id number]) Language Evaluation [place] Language Language(s) Spoken in the Home Albanian is first language, also speaks Turkish Previous Therapy Previous Speech-Language Therapy Yes History of Therapy At [place] last month following CVA Oral Motor Examination Results Diadochokinesis testing revealed mild-moderate impairments in producing rapid speech sounds. Speech intelligibility was ~70% to unknown listener. Speech was characterized by slow rate and imprecise articulation resulting in slurred sounding speech. Patient education on dysarthria speaking strategies was provided and included slow rate, overexaggerated articulation and increasing volume. - - Receptive Language Yes/No Questions Skill Level Moderately Impaired Following Directions - Verbal Skill Level WFL Auditory Comprehension Skill Level Mildly Impaired Receptive Language Comments Receptive Language Comments Difficulty answering yes/no questions with yes bias on all questions until further explanation was provided. Patient able to follow one and two step directions without difficulty. - Expressive Language Automatic Speech Skill Level Mildly Impaired Sentence Closure Skill Level WFL Object Naming Skill Level Mildly Impaired Expressive Language Comments Expressive Language Comments Patient named common objects correctly with extra time. Minimal prompting needed to initiate naming days of the week and months of the year. Patient was short in her responses, but appropriate. - Recommendations Recommendations Follow-up during inpatient stay for implementation of strategies educated. Ongoing assessment to include memory/ cognition. Treatment Goals Short Term Goals With minimal prompts/cues, Natasha will recall and implement dysarthria and dysphagia strategies as discussed today.
[2020-03-28] MEDS: ASPIRIN EC 81 MG TABLET PO (08:54)
[2020-03-28] MEDS: AMLODIPINE 5 MG TABLET 10 MG PO (08:54)
[2020-03-28] MEDS: lisinopriL 10 MG TABLET PO (08:55)
[2020-03-28] MEDS: METOPROLOL IR 25 MG TABLET 12.5 MG PO ×2 (08:55→21:16)
[2020-03-28 09:00] VITALS: BP 164/77; PULSE 79; RESP 18; TEMP 36.9; O2SAT 94
[2020-03-28] MEDS: cephALEXin 250 MG CAPSULE 500 MG PO ×2 (09:11→14:46)
[2020-03-28] MEDS: polyethylene glycoL 3350 17 GM POWD.PACK PO (09:12)
--- NOTE | 2020-03-28 10:53 | CM.DANOTE ---
Addendum entered by Gabby Clement R.N. 03/28/20 14:57: Faxed P.T, O.T. notes over to [facility], attn: Clara. Faxed them over to [facility] as well. Left a message for Clara from [facility] to call back, indicating that patient could potentially be discharged tomorrow. Original Note: DCP: Case received, EMR reviewed and met with patient and , Anais, in patient's room. Introduced self and role. Was able to meet with patient and obtain information regarding her baseline activity level, as well as living situation. Patient was recently here on 03/26, and discharged home to resume [facility]. DCP assessment completed with information currently available. Patient is an 84 year old female who admitted yesterday afternoon to the care of the hospitalist team. PCP: Dr. Temple. Payer: confirmed: Medicare/[employer]. Patient came to the hospital via private vehicle secondary to increased right sided weakness. Patient was also having slurred speech. Patient was recently discharged here on 03/26, secondary to a fall, and was res[facility]. Patient has a CVA in January, and had been at [facility], and did go to [facility] for inpatient acute rehab. Patient resides with her , Anais, he is her primary caregiver. She has been using a walker at home, but has become weaker, and having difficulty standing. He does assist with meals, showers, at home, and P.T. had come to the home. Discussed discharge planning with patient and . P.T. recommendations are for inpatient acute rehab. Went ahead and faxed referral over to [facility], and confirmed with Clara in admissions that they have two beds available. She will review. Also, called [facility] inpatient rehab. Patient had been there recently, and liked the staff. Spoke to Julian in admissions at rehab, and stated that they could potentially have a bed available, for they have daily discharges. Gave him name of patient, and is familiar with her. Will also have Shoshana, healthcare administration intern, fax referral to him as well. P: DCP to continue to follow. Will need to follow up both with [facility] and [facility], and update provider on plan. Will also send over P.T. notes and O.T. when they are completed. Gabby Clement RN/Surgical Instrument Mechanic
--- NOTE | 2020-03-28 11:15 | PT.IIE ---
Current Diagnoses Cerebral infarction, unspecified (03/27/20) Surgical History (Last Reviewed 03/27/20 @ 19:01 by Jeromy Vyas MD) S/P hip hemiarthroplasty (Inactive) S/P total hip arthroplasty (Acute) Medical History (Last Reviewed 03/27/20 @ 19:01 by Jeromy Vyas MD) Acute post-hemorrhagic anemia (Inactive) Anxiety (Inactive) Fracture of distal fibula (Inactive) Gastritis (Inactive) H/O: stroke with residual effects (Acute) Hip dislocation, right (Inactive) Hypertension (Acute) Palpitations (Inactive) Paroxysmal atrial fibrillation (Acute) Posthemorrhagic anemia (Inactive) UTI (urinary tract infection) (Inactive) Physical Therapy Inpatient Evaluation/Re-Eval M1 PT/OT-IP Prior Functional Status Start: 03/28/20 08:28 Freq: NEEDED Status: Active Protocol: Document 03/28/20 11:07 AW (Rec: 03/28/20 11:24 AW [id number]) Medical Review Prior Functional Status Medical History Reviewed Yes Communication Able to make needs known. Speech content is appropriate. Pt's spouse reports her intelligibility and slurring are worse over the past few days. 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 She was transferred from ED to [facility] and then spent a week at acute rehab at [facility]. When she was discharged from rehab, she was ambulating household distances with a quad cane and transferring with SBA. Prior to her original CVA, pt was independent with all mobility. Activities of Daily Living and IADL's Pt has home health PT, OT, and nursing. She also has a bath aid twice weekly. Pt's spouse, Andi, states he always provides SBA with toilet transfers. Prior Functional Level (Other details) Pt has an adjustable bed with rail on her left side and a toilet safety frame with arms. Social History Household Members spouse Living Arrangements House Number of Floors (Floors) Two Floors Number of Stairs To Enter/Railing? Home has a ramped entry and pt stays on the main/business mail entry clerk . Home Environment Standard Height Toilet,Walk in Shower,Ramp Home Equipment Front Wheel Walker,Quad Cane, Manual Wheelchair,Shower Seat with Backrest,Hand Held Shower ,Hospital Bed,Bed Rails,Grab Bars In Shower Additional Social History Comment Pt lives with her spouse, Andi , who has been providing SBA for most mobility. Brendan and Andi have a daughter who lives next door and two other daughters who live nearby. M2 PT-IP Current Condition Start: 03/28/20 08:28 Freq: NEEDED Status: Active Protocol: Document 03/28/20 11:07 AW (Rec: 03/28/20 11:24 AW [id number]) Physical Therapy Current Condition Current Condition Evaluation Date 03/28/20 Treatment Diagnosis CVA; difficulty in walking Onset Date 03/27/20 M3 PT-IP Subjective Start: 03/28/20 08:28 Freq: NEEDED Status: Active Protocol: Document 03/28/20 11:07 AW (Rec: 03/28/20 11:24 AW [id number]) Subjective Physical Therapy Visit Type Type Initial Evaluation Visit Start Time 09:49 Visit Stop Time 10:28 Total Visit Minutes 39 Physical Therapy Visit Comments Patient Comments Pt has difficulty keeping her eyes open but is willing to participate with PT. Patient Goals Pt's spouse does not believe home is safe for the pt right now and is looking for information on options at discharge. Therapy Pain Assessment Pain When Pain Assessed During Mobility Pain Present Pain Present Denied Pain M4 PT-IP Mobility and Gait Start: 03/28/20 08:28 Freq: NEEDED Status: Active Protocol: Document 03/28/20 11:07 AW (Rec: 03/28/20 11:24 AW [id number]) PT-Bed Mobility Assessment Rolling Type of Rolling Roll to Right,Roll to Left Level of Assist Contact Guard Assistance, Minimal Assistance Supine to Sit Supine to Sit Minimal Assistance,1 Person Assistance,Head of Bed Elevated,Bedrails Sit to Supine Sit to Supine Minimal Assistance,1 Person Assistance Scooting Scooting to Edge of Bed Contact Guard Assistance PT-Transfer Assessment Sit to and From Stand Sit to and from Stand Moderate Assistance,1 Person Assistance,Use of Upper Extremities Equipment Transfer Assistive Device Gait Belt,Small Based Quad Cane Orthotic/Prosthetic Devices or Brace: No Transfers Transfer Destination Chair Transfer Technique Stand Step Pivot Transfer Ability Level of Assist Minimal Assistance,1 Person Assistance,Use of Upper Extremities Comments Mobility Comments Pt was sitting up in bed upon PT arrival, having difficulty keeping her eyes open. She completed supine to sit with HOB at 45 degrees, exiting to her left side as she does at home min A x 1. Pt sat EOB requiring UE support and CGA due to retropulsive tendency and leftward lean. She completed sit to supine and then rolled to her right side and complete supine to sit exiting to her right requiring min A x 1 for guidance of her hemiparetic right arm and to guide her legs out of the bed. She then stood using quad cane and mod A x 1 due to initial unsteadiness with strong posterior lean in standing. Pt required frequent verbal cues for placement of the quad cane to maximize her base of support. She took steps toward the chair but had difficulty advancing her right leg, essentially dragging her foot. Ambulation of ~3 feet required mod A x 1. Side stepping to position herself in front of the chair also required mod A x 1. Stand to sit was completed mod A x 1 with cues for placement of her left hand on the chair arm to ease her descent. Pt was positioned in the reclined chair with call light and all needs within reach. Gait Assessment Gait Gait Assistance Required: Moderate Assistance,1 Person Assist Distance (Feet) 3 Assistive Devices Assistive Device Gait Belt,Small Based Quad Cane Orthotic/Prosthetic Devices or Brace: No Gait Deviations General Gait Pattern Ataxic,Decreased Stride Length ,Decreased Feet Clearance, Flexed Trunk,Lateral Trunk Lean,Narrow Based Gait Factors Limiting Gait Function Factors Limiting Gait Function Abnormal Tonal Influences, Decreased Activity Tolerance, Decreased Strength,Difficulty Following Directions,Limited Range of Motion,Poor Balance, Poor Safety Awareness Comments Gait Comments See mobility comments Stair Climbing Assessment Comments Stair Climbing Comments Not assessed. No stairs at home. PT-Balance Assessment Sitting Balance and Reactions Static Sitting Balance Ability Fair Dynamic Sitting Balance Ability Fair Standing Balance and Reactions Static Standing Balance Ability Poor Dynamic Standing Balance Ability Poor Device Used quad cane M5 PT-IP Objective Assessments Start: 03/28/20 08:28 Freq: NEEDED Status: Active Protocol: Document 03/28/20 11:07 AW (Rec: 03/28/20 12:25 AW [id number]) Orientation Orientation/Cognition Level of Alertness Lethargic Orientation Name,Day of Week,Place, Situation Language Function Ability Garbled Speech Safety Awareness Decreased Safety Awareness Memory Description Short Term Impaired Gross Range of Motion Upper Extremity ROM Assessment Right Impaired Impairments AROM right shoulder: FF limited to ~70 degrees Lower Extremity ROM Assessment Within Functional Limits Strength Upper Extremity Strength Assessment Right Impaired Shoulder 3-/5 Elbow 3/5 Wrist 3/5 Hand 3-/5 Lower Extremity Strength Assessment Right Impaired Hip 3+/5 Knee 3+/5 Ankle 3-/5 Coordination Assessment Assessment Finger to Nose Test Normal Performance Coordination Comments Normal with LUE. Unable with RUE Sensation Assessment Comments Sensation Comments Pt denies sensation changes Muscle Tone Muscle Tone Location Right Upper Extremity Type of Tone Hypertonicity,Flexor Severity of Tone Mild Comments Muscle Tone Comments RUE elbow flexion with rigidity of 1+ on modified Supa scale M6 PT-IP Treatment Start: 03/28/20 08:28 Freq: NEEDED Status: Active Protocol: Document 03/28/20 11:07 AW (Rec: 03/28/20 12:25 AW [id number]) Physical Therapy Treatment Education Education Provided Safety M7 PT-IP Assessment and Plan Start: 03/28/20 08:28 Freq: NEEDED Status: Active Protocol: Document 03/28/20 11:07 AW (Rec: 03/28/20 12:25 AW [id number]) PT Summary Assessment and Plan Potential Rehabilitation Potential Good Status of Condition at Evaluation Evolving Summary Impairments ROM,Strength,Balance,Tone, Cognition,Bed Mobility, Transfers,Gait,Activity Tolerance Assessment Summary Brendan is an 84 yo woman with history of left MCA CVA on February 20, 2020 who presents to acute PT with new onset slurring of words, right sided facial droop, and worsening right sided hemiparesis. Initial NIH stroke scale score in the ED was 15. Pt was treated at inpatient rehab following her initial CVA and was able to ambulate household distances with a quad cane and SBA when she was discharged. Pt fell on 03/24 and was briefly admitted. She now returns with new symptoms described above. Per ED notes, this is believed to represent an evolution or progression of her left MCA CVA. On evaluation, she presents with significant posterior lean in sitting and standing, requiring mod assist for transfers and ambulation. She has had at least one injurious fall since her discharge from acute rehab. Pt would benefit from acute rehab for bahai of recent baseline function before being able to safely return home. If acute rehab is not an option, SNF rehab or home with increased assist and HH may be considered. Goals Bed Mobility Goal Standby Assistance Transfer Goal Standby Assistance,Cane Gait Goal Standby Assistance,Cane Gait Distance 100 Days to Meet Goals 10 Frequency of Treatment Frequency Of Treatment Twice a Day Treatment Plan Physical Therapy Treatment Plan Bed Mobility Training,Transfer Training,Gait Training, Therapeutic Exercise,Balance Retraining,Post Op Education, Discharge Planning, Neuromuscular Re-ed, Coordination Retraining Other Recommendations and Next Treatment transfers, gait with quad cane Focus Recommendations To Nursing Amount of Assist Needed 1 Person Assist,2 Person Assist Discharge Recommendations PT Discharge Recommendations Acute Rehab Transportation Needs at Discharge Wheelchair/Cabulance
--- NOTE | 2020-03-28 11:19 | OT.IP.EVAL ---
Current Diagnoses Cerebral infarction, unspecified (03/27/20) Past Medical History (Last Reviewed 03/27/20 @ 19:01 by Jeromy Vyas MD) Acute post-hemorrhagic anemia (Inactive) Anxiety (Inactive) Fracture of distal fibula (Inactive) Gastritis (Inactive) H/O: stroke with residual effects (Acute) Hip dislocation, right (Inactive) Hypertension (Acute) Palpitations (Inactive) Paroxysmal atrial fibrillation (Acute) Posthemorrhagic anemia (Inactive) UTI (urinary tract infection) (Inactive) Surgical History (Last Reviewed 03/27/20 @ 19:01 by Jeromy Vyas MD) S/P hip hemiarthroplasty (Inactive) S/P total hip arthroplasty (Acute) Occupational Therapy Inpatient Evaluation/Re-Eval M1 PT/OT-IP Prior Functional Status Start: 03/28/20 12:45 Freq: NEEDED Status: Active Protocol: Document 03/28/20 10:37 [facility] (Rec: 03/28/20 13:12 [facility] [id number]) Medical Review Prior Functional Status Medical History Reviewed Yes Communication Able to make needs known. Speech content is appropriate. Pt's spouse reports her intelligibility and slurring are worse over the past few days. 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 She was transferred from ED to [facility] and then spent a week at acute rehab at [facility]. When she was discharged from rehab, she was ambulating household distances with a quad cane and transferring with SBA. Prior to her original CVA, pt was independent with all mobility. Activities of Daily Living and IADL's Pt has home health PT, OT, and nursing. She also has a bath aid twice weekly. Pt's spouse, Andi, states he always provides SBA with toilet transfers. Pt's states has to assist pt for socks and shoes. Prior Functional Level (Other details) Pt has an adjustable bed with rail on her left side and a toilet safety frame with arms. Social History Household Members spouse Living Arrangements House Number of Floors (Floors) Two Floors Number of Stairs To Enter/Railing? Home has a ramped entry and pt stays on the main/director oracle . Home Environment Standard Height Toilet,Walk in Shower,Ramp Home Equipment Front Wheel Walker,Quad Cane, Manual Wheelchair,Shower Seat with Backrest,Hand Held Shower ,Hospital Bed,Bed Rails,Grab Bars In Shower Additional Social History Comment Pt lives with her spouse, Andi , who has been providing SBA for most mobility. Brendan and Andi have a daughter who lives next door and two other daughters who live nearby. M2 OT-IP Current Condition Start: 03/28/20 12:45 Freq: Status: Active Protocol: Document 03/28/20 10:37 [facility] (Rec: 03/28/20 13:12 [facility] [id number]) Occupational Therapy Current Condition Current Condition Evaluation Date 03/28/20 Treatment Diagnosis progression of recent CVA, decreased mobility and self care Diagnosis Onset Date 03/27/20 Weight Bearing Status Weight Bearing Status Weight Bear as Tolerated M3 OT- IP Subjective and Pain Start: 03/28/20 12:45 Freq: Status: Active Protocol: Document 03/28/20 10:37 [facility] (Rec: 03/28/20 13:12 [facility] [id number]) OT- Subjective Occupational Therapy Visit Type Type Initial Evaluation Visit Start Time 10:37 Visit Stop Time 11:19 Total Visit Minutes 42 Occupational Therapy Visit Comments Patient Comments Pt's present for OT eval. Patient/Caregiver Goals To go to acute rehab prior to going home. OT Pain Assessment Pain When Pain Assessed During Mobility Pain Present Pain Present Pain Reported Location Right Lower Lateral Chest Pain Behaviors Facial Grimacing,Guarding, Holding Area Management Techniques Re-positioning M4 OT- IP ADL's Start: 03/28/20 12:45 Freq: Status: Active Protocol: Document 03/28/20 10:37 [facility] (Rec: 03/28/20 13:12 [facility] [id number]) OT [id number] Comments OT Self-Feeding Comments Not at meal time. At this time pt not able to use right hand to assist to eat, prior pt is right hand dominant. OT ADL-Grooming General Evaluation Grooming Ability Standby Assistance,Maximum Assistance Comments OT Grooming Comments Pt use of left hand to wash her face after set-up of wash cloth. MAX A to incorporate use for rigth hand for the same task. OT ADL-Oral Care Comments Oral Care Comments Nor performed. OT ADL-Dressing General Eval Lower Body Dressing Ability Maximum Assistance Areas Needing Assistance Socks Comments OT Dressing Comments Pt while sitting in the recliner able to cross her legs over and able to doff socks with left hand. Pt not able to grasp sock with right hand at this time to assist for any of LB dressing needs. Pt assist to stewart socks. OT ADL-Toileting Comments OT Toileting Comments Pt not having to use the toilet at this time. However due to decreased use of right hand and balance, pt will now need assist for all toileting needs. Prior pt was independent for all toileting needs. OT ADL-Bathing Comments OT Bathing Comments Not performed. M5 OT- IP IADL's Start: 03/28/20 12:45 Freq: Status: Active Protocol: Document 03/28/20 10:37 [facility] (Rec: 03/28/20 13:12 [facility] [id number]) OT-Instrumental Activities of Daily Living Deficits IADL Deficits Identified Deficits Home Safety Awareness Ability to Problem Solve Emergency Unable to Problem Solve Situations Medication Management Medication Management Caregiver Administers Money Management Money Management Caregiver Provides Assistance Meal Preparation Meal Preparation Caregiver Provides Assist Supply Manager Supply Manager Caregiver Provides Assist Driving Driving Caregiver Provides Assist M6 OT- IP Functional Cognition Start: 03/28/20 12:45 Freq: Status: Active Protocol: Document 03/28/20 10:37 [facility] (Rec: 03/28/20 13:12 [facility] [id number]) Cognitive Factors Limiting Selfcare Function Cognitive Ability Level of Alertness Alert,Drowsy Patient Orientation Name,Year,Situation Attention Span Ability Capable of Focused Attention, Unable to Sustain Attention Ability to Follow Commands Able to Follow One Step Commands with Increased Time, Able to Follow One Step Commands with Repetition Memory Description Short Term Impaired,Working Impaired Problem Solving Ability Unable to Identify Errors, Needs Assist to Identify Solutions Executive Function Ability Unable to Organize Plans, Unable to Remember Details Cognitive Tests SLUMS Pt having difficulty to keep her eyes open and at times having to wake pt up. Pt however states she is tired and also trying to think when her eyes are closed. Pt scored 8/30, normal score for pt's level of education is 27/ 30. Pt score indicated cognitive deficits. Pt's does state has noticed a change in her cognition from last time, decreased memory, word finding problems at times, and having trouble thinking. Pt's sleepiness may also influenced her low score . Would be helpful to redo assessment when pt more alert. Pt just able to states year, state , named 8 animals in one minute, pick out the largest space, and able to answer 2/4 questions right after a paragraph read. Cognitive Comments Cognitive Assessment Comments Pt having trouble thinking , right neglect, getting the words out, and decreased short term memory. OT- Vision and Hearing OT- Hearing Assessment OT- Hearing Assessment WFL OT- Vision Assessment Vision History Cataracts Visual Acuity WFL Occular Pursuits WFL Visual Convergence WFL Visual [place] WFL Visual Spacial Neglect Right Vision Assessment Comments Pt neglect use of right hand. M7 OT- IP Mobility and Balance Start: 03/28/20 12:45 Freq: Status: Active Protocol: Document 03/28/20 10:37 [facility] (Rec: 03/28/20 13:12 [id number]-Transfer Assessment Sit to and From Stand Sit to and from Stand Moderate Assistance Transfers Transfer Ability Moderate Assistance Technique Transfer Destination Bed Devices Transfer Assistive Devices Gait Belt,Small Based Quad Cane Comments Mobility Comments MODA to help incorporate right hand to push from the armrest of the recliner and MODA to help stand to quad caen. As pt tires, pt balance decreased and lean backwards and having a harder time to pickle cutter her right foot. OT- Balance Assessment Sitting Balance and Reactions Static Sitting Balance Ability Good Dynamic Sitting Balance Ability Fair Standing Balance and Reactions Static Standing Balance Ability Poor Dynamic Standing Balance Ability Poor M8 OT- IP Objective Assessments Start: 03/28/20 12:45 Freq: Status: Active Protocol: Document 03/28/20 10:37 [facility] (Rec: 03/28/20 13:12 [id number] OT Gross Range of Motion Upper Extremity Range of Motion Assessment Right Impaired ROM Impairments 0-95 shoulder flexion elbow WFL hand unable to make a fist or extend her fingers all the way - per prior able to open and close her hand independently. OT Strength Comments Strength Comments LUE4/5 RUE 3-/5 to 2-/5 from proximal to distal OT- Coordination Assessment Upper Extremity Finger to Nose Test Right UE Impaired Comments Coordination Comments Unable to use right hand to pickle cutter items as prior states able to pickle cutter buttons and coins. OT-Muscle Tone Assessment Muscle Tone WNL No Muscle Tone Location Right Upper Extremity Type of Tone Hypertonicity OT Sensation Assessment Comments Summary Comments Decreased sensation in right forearm and distally for light touch. M9 OT- IP Assessment and Plan Start: 03/28/20 12:45 Freq: Status: Active Protocol: Document 03/28/20 10:37 [facility] (Rec: 03/28/20 13:12 [facility] [id number]) OT Summary Assessment and Plan Potential Rehabilitation Potential Good Analytic Complexity at Evaluation Low Summary OT Impairments Range of Motion,Strength, Balance,Coordination,Sensation ,Tone,Functional Cognition, Functional Mobility,Self- Feeding,Grooming,Dressing, Toileting,Bathing,Toilet Transfers,Shower Transfers, Activity Tolerance Progress Towards Goals Slow Progress due to Medical Issues,Slow Progress due to Activity Tolerance,Slow Progress due to Cognition Assessment Summary Pt mod complexity here for progression of CVA which she initially had 02/20/20. Pt having not able to use her right hand for any Adl needs at this time, increased tone and not able to extend her fingers at this time, decreased balance and now needing MODA for transfer needs with quad cane, pt also having increased cognitive deficits with memory , initiation, calculations, and overall thinking. Pt would benefit form acute rehab to maximize her independence with ADl and functional mobility in addition to be able to incorporate use of her right hand again for all needs. Pt is highly motivated and willing to do acute rehab. Goals Self-Feeding Goal Standby Assistance,Adapted Utensil Grooming Goal Standby Assistance Dressing Goal Minimal Assistance Toileting Goal Standby Assistance Bathing Goal Minimal Assistance Toilet Transfer Goal Standby Assistance Shower Transfer Goal Contact Guard Assistance Patient/Caregiver Education Goal Caregiver Independent Assisting Patient Days to Meet Goals 10 Frequency of Treatment Frequency Of Treatment Once a Day Treatment Plan OT Treatment Plan ADL Training,Functional Cognition Training,Functional Mobility,Patient/Family Education,Discharge Planning Other Treatment Recommendations and Next Incorporation of right hand Treatment Focus for self-feeding MODA. Discharge Recommendations OT Discharge Recommendations Acute Rehab Home Equipment Needs Defer to acute rehab. Transportation Needs at Discharge Private Vehicle
[2020-03-28 12:20] VITALS: BP 122/58; PULSE 65; RESP 18; TEMP 36.5; O2SAT 93
[2020-03-28 13:22] VITALS: BMI 16.9
--- NOTE | 2020-03-28 13:24 | DIET.PN ---
Dietary Progress Note Assessment: 84y F admitted c worsening slurred speech, right facial droop, right hemiparesis (dominant hand) s/p stroke in late January 2020 referred to nutrition for malnutrition screening. Pt's weight was steady at 56kg until recovering from stent placement @ for aortic aneurysm on 08/23/19. Pt and her spouse report 8kg weight loss (severe) as pt was experiencing persistent LLQ px and reported difficulty swallowing at ER visit 09/26/2020, pt was consuming mostly liquids, broth, and avocado at that time. Pt had stroke c R sided weakness (dominant hand) and facial droop 02/21/2020 and has lost 8.3% body weight (severe) since then. Pt has 23% unintentional weight loss in 6 mo (severe) qualifying her for Severe Acute on Chronic PCM. Pt is drinking ONS Glucerna today which she accepts, but feels the food at hospital is bland so spitting it out when her assists c feeding. Pt being seen by Speech Therapy who recommends Dysphagia Mechanical Soft/thin. HT: 160cm WT: 43.5kg UBW: 56kg (-23% in 6mo, severe) BMI: 17.0 (severe for age) Labs: BG 91-145 MNA: 6 malnourished James: 20 Nutrition Diagnosis: Severe Acute on Chronic PCM r/t difficulty swallowing and self feeding s/p both aortic aneurysm and stroke aeb pt has residual dominant hand and right facial weakness, BMI 17.0 (severe), unintentional weight loss of 8.3% in 1 mo and 23% in 6mo, SLT recommending dysphagia mech soft texture. Interventions: 1. Recc ONS Ensure Enlive bid to sip on between meals for easy, concentrated pro/kcals providing 65% PRO and 50% kcals 2. Recc Ms. Dash on all trays to entice pt to eat POs r/t pt feeling food is bland. 3. Discussed high pro MNT c pt and spouse once home to support LBM for increased strength, balance, and to support PCM. Diet Order: Dysphagia Mech Soft/thin EER: 61g PRO (1.3g/kg per PCM), 1650kcal (35kcal/kg per PCM) Monitoring/Evaluations: ONS tolerance, weight, Speech Therapy progression
--- NOTE | 2020-03-28 15:20 | DI.MRI.S_ITS ---
PROCEDURE: MR STROKE Pre- and post-contrast brain MRI, non-contrast brain MR angiogram, pre- and postcontrast neck MR angiogram INDICATIONS: Slurred speech TECHNIQUE: Brain: Noncontrast axial T1 spin echo, axial T2 fast spin echo, sagittal and axial FLAIR, coronal T2 fast spin echo, axial gradient echo, axial diffusion and ADC through the brain. After the administration of contrast, axial 3D VIBE of the cranial vasculature and brain. Brain MRA: Non-contrast 3-D time of flight MR angiogram, with multiple tckjocq-ewzfkaopq-btatjjworq (MIP) reformats performed. Neck MRA: Axial and sagittal TruFISP through the neck. Coronal dynamic MR angiogram during administration of contrast in the arterial and venous phases, with 3-dimenstional rimznei-jdsibrnxh-vvkswajpeg (MIP) reformats constructed from subtraction images. COMPARISON: [facility], , MR STROKE, 02/20/2020, 8:42. FINDINGS: Image quality: Excellent. BRAIN: CSF spaces: Ventricles are normal in size and shape. Basal cisterns are patent. No extra-axial fluid collections. Brain: Moderate-sized area of encephalomalacia in the left frontal and mild in the temporoparietal and temporal lobes. This appears similar to the hypodensity seen on CT performed yesterday. However, this was new compared to the CT from 02/20/2020. There is associated flair signal hyperintensity and minimal cortical transit T1 hyperintensity without blooming artifact on the GRE sequences which is typically seen with petechial hemorrhage. No significant intracranial bleeds or mass effects. Diffusion weighted images show no focal ADC hypointensity to suggest acute ischemic insults. Small focal evidence of malacia in the right frontal lobe likely chronic. Brainstem appears normal. Age related parenchymal loss. Normal intravascular flow voids are present. No abnormal intracranial enhancement. Skull and face: Calvarial marrow signal is normal. Orbits appear normal. Sinuses: Sinuses and mastoids are clear. BRAIN MR ANGIOGRAM: Anterior circulation: Intracranial internal carotid arteries are normal in size and enhancement. The flow within the paired anterior cerebral arteries is normal and symmetric. The flow within the middle cerebral arteries is normal and symmetric. The anterior communicating artery is seen. No stenoses, occlusions, or aneurysms. Left posterior cerebral artery originates from the MCA, variant anatomy. Right posterior communicating artery is hypoplastic or absent. Posterior circulation: The visualized portions of the vertebral arteries demonstrate normal caliber, and join to form a normal appearing basilar artery. The flow within the posterior cerebral arteries is normal and symmetric. No stenoses, occlusions, or aneurysms. NECK MR ANGIOGRAM: Carotids: Great vessels demonstrate a conventional anatomy as they arise from the aortic arch. The origins of the common carotid arteries appear patent. The calibers and courses of both common carotid arteries are normal. The bifurcation regions appear normal bilaterally. The internal carotid arteries demonstrate normal course and caliber. Posterior circulation: The origins of the vertebral arteries appear patent. More superior portions of both vertebral arteries demonstrate normal course and caliber, and join to form a normal appearing basilar artery. Miscellaneous: Subclavian arteries appear patent. Pre-contrast images through the neck show no soft tissue abnormalities. IMPRESSION: BRAIN MRI: Subacute infarct in the left MCA distribution. Moderate area of encephalomalacia in the left frontal lobe and mild in the temporoparietal lobes. Findings overall similar to CT performed yesterday. Age-related parenchymal loss and chronic microvascular ischemic disease. BRAIN MR ANGIOGRAM: No large vessel occlusion is demonstrated. Variant origin of the left posterior cerebral artery. NECK MR ANGIOGRAM: No critical stenosis demonstrated. -Consider further evaluation with carotid ultrasound. Dictated by: Mega Amezcua M.D. on 03/28/2020 at 18:16 Approved by: Mega Amezcua M.D. on 03/28/2020 at 18:40
--- NOTE | 2020-03-28 15:24 | PT.IPTN ---
Current Diagnoses Cerebral infarction, unspecified (03/27/20) Physical Therapy Treatment Note M2 PT-IP Current Condition Start: 03/28/20 08:28 Freq: NEEDED Status: Active Protocol: Document 03/28/20 11:07 AW (Rec: 03/28/20 11:24 AW [id number]) Physical Therapy Current Condition Current Condition Evaluation Date 03/28/20 Treatment Diagnosis CVA; difficulty in walking Onset Date 03/27/20 M3 PT-IP Subjective Start: 03/28/20 08:28 Freq: NEEDED Status: Active Protocol: Document 03/28/20 15:10 AW (Rec: 03/28/20 15:24 AW [id number]) Subjective Physical Therapy Visit Type Type Treatment Note Visit Start Time 14:09 Visit Stop Time 14:34 Total Visit Minutes 25 Physical Therapy Visit Comments Patient Comments Pt slightly more alert this PM and willing to participate with PT Therapy Pain Assessment Pain When Pain Assessed During Mobility Pain Present Pain Present Pain Reported Location Right Lower Lateral Chest Scale Used not quantified Pain Behaviors Facial Grimacing,Holding Area Pain Management Techniques Distraction,Re-positioning, Timing of Activity with Medications M4 PT-IP Mobility and Gait Start: 03/28/20 08:28 Freq: NEEDED Status: Active Protocol: Document 03/28/20 15:10 AW (Rec: 03/28/20 15:24 AW [id number]) PT-Bed Mobility Assessment Supine to Sit Supine to Sit Minimal Assistance,1 Person Assistance,Bedrails Sit to Supine Sit to Supine Minimal Assistance,1 Person Assistance Scooting Scooting to Edge of Bed Contact Guard Assistance PT-Transfer Assessment Sit to and From Stand Sit to and from Stand Moderate Assistance,1 Person Assistance,Use of Upper Extremities Equipment Transfer Assistive Device Gait Belt,Small Based Quad Cane Orthotic/Prosthetic Devices or Brace: No Transfers Transfer Destination Chair,Bedside Commode Transfer Technique pt ambulated with quad cane Transfer Ability Level of Assist Minimal Assistance,1 Person Assistance,Use of Upper Extremities Comments Mobility Comments Pt completed supine to sit, exiting the bed to her left side min A x 1 with need for hand hold to pull up to sitting, demonstrating poor trunk control. She stood using quad cane mod A x 1 with unsteadiness and posterior pushing in immediate standing. She ambulated around the foot of the bed to the chair on the other side with quad cane mod A x 1 and sat for RUE and balance exercises. She then requested to use the BSC and stood from the chair with quad cane mod A x 1. She walked 10 feet to the [facility] and required min A x 1 and max cues for safe transfer. After she voided, pt completed pericare in sitting with her left hand and then transferred back to the bed min A x 1 where she was positioned with call light in reach and bed alarm on for safety. Gait Assessment Gait Gait Assistance Required: Moderate Assistance,1 Person Assist Distance (Feet) 20 Assistive Devices Assistive Device Gait Belt,Small Based Quad Cane Orthotic/Prosthetic Devices or Brace: No Gait Deviations General Gait Pattern Ataxic,Decreased Stride Length ,Decreased Feet Clearance, Flexed Trunk,Lateral Trunk Lean,Narrow Based Gait Factors Limiting Gait Function Factors Limiting Gait Function Abnormal Tonal Influences, Decreased Activity Tolerance, Decreased Strength,Difficulty Following Directions,Limited Range of Motion,Poor Balance, Poor Safety Awareness Comments Gait Comments Pt ambulated around the room with quad cane mod A x 1, demonstrating multiple losses of balance bother posteriorly and laterally. Max cues needed for right LE advancement and widening base of support. Pt was able to correct her NBOS but would quickly revert back to excessive adduction with the RLE. M5 PT-IP Objective Assessments Start: 03/28/20 08:28 Freq: NEEDED Status: Active Protocol: Document 03/28/20 11:07 AW (Rec: 03/28/20 12:25 AW [id number]) Orientation Orientation/Cognition Level of Alertness Lethargic Orientation Name,Day of Week,Place, Situation Language Function Ability Garbled Speech Safety Awareness Decreased Safety Awareness Memory Description Short Term Impaired Gross Range of Motion Upper Extremity ROM Assessment Right Impaired Impairments AROM right shoulder: FF limited to ~70 degrees Lower Extremity ROM Assessment Within Functional Limits Strength Upper Extremity Strength Assessment Right Impaired Shoulder 3-/5 Elbow 3/5 Wrist 3/5 Hand 3-/5 Lower Extremity Strength Assessment Right Impaired Hip 3+/5 Knee 3+/5 Ankle 3-/5 Coordination Assessment Assessment Finger to Nose Test Normal Performance Coordination Comments Normal with LUE. Unable with RUE Sensation Assessment Comments Sensation Comments Pt denies sensation changes Muscle Tone Muscle Tone Location Right Upper Extremity Type of Tone Hypertonicity,Flexor Severity of Tone Mild Comments Muscle Tone Comments RUE elbow flexion with rigidity of 1+ on modified Supa scale M6 PT-IP Treatment Start: 03/28/20 08:28 Freq: NEEDED Status: Active Protocol: Document 03/28/20 15:10 AW (Rec: 03/28/20 15:24 AW [id number]) Physical Therapy Treatment Other Treatments Other Treatment Performed In sitting, pt had poor tolerance for multidirectional balance challenges, demonstrating poor trunk control and poor ability to maintain midline. Sitting posture is notable for rightward lean but pt is able to correct toward midline. M7 PT-IP Assessment and Plan Start: 03/28/20 08:28 Freq: NEEDED Status: Active Protocol: Document 03/28/20 15:10 AW (Rec: 03/28/20 15:24 AW [id number]) PT Summary Assessment and Plan Summary Impairments ROM,Strength,Balance,Tone, Cognition,Bed Mobility, Transfers,Gait,Activity Tolerance Progress Towards Goals Slow Progress - Other Assessment Summary Brendan continues to require min to mod assist for all mobility. When asked to reach for a target in sitting, she requires constant cues to use her right arm instead of her left, demonstrating possible right sided neglect. In gait, she requires max cueing to widen her base of support, to keep the quad cane closer to her side, and to advance the right lower extremity. She remains an excellent candidate for inpatient rehab. Goals Bed Mobility Goal Standby Assistance Transfer Goal Standby Assistance,Cane Gait Goal Standby Assistance,Cane Gait Distance 100 Days to Meet Goals 10 Frequency of Treatment Frequency Of Treatment Twice a Day Treatment Plan Physical Therapy Treatment Plan Bed Mobility Training,Transfer Training,Gait Training, Therapeutic Exercise,Balance Retraining,Post Op Education, Discharge Planning, Neuromuscular Re-ed, Coordination Retraining Other Recommendations and Next Treatment transfers, gait with quad cane Focus , sitting and standing balance , emphasis on use of RUE Recommendations To Nursing Amount of Assist Needed 1 Person Assist Discharge Recommendations PT Discharge Recommendations Acute Rehab Transportation Needs at Discharge Wheelchair/Cabulance
[2020-03-28 15:44] VITALS: BP 116/55; PULSE 67; RESP 16; TEMP 36.8; O2SAT 93
--- NOTE | 2020-03-28 18:30 | P.PN_ITS ---
Subjective Subjective Date Patient Seen: 03/28/20 Time Patient Seen: 18:31 Interval history: Patient had unremarkable night overnight. Reviewed H&P by Dr. Vyas met with patient her . Unclear patient had a recurrent stroke or reactivation of previous stroke. CT scan showed no bleed. Patient was placed on baby aspirin. Prior to last hospitalization patient was on Eliquis. Patient fell sustained a pneumothorax and possible bleeding into a known hepatic cyst. Eliquis was discontinued for approximately 48 hours. Patient was discharged home on March 26 and was doing well brushing her teeth and went to bed. When she awakened in the morning she was having difficulty speaking and decreased function of her right upper extremity and right lower extremity right upper extremity more affected than right lower extremity and this seemed at least as significant as her previous CVA which involved the middle cerebral artery that occurred on 01/2420 and patient was cared for at [facility] and [facility]. Patient then met with her neurologist Dr. Tiara Urbina at the [facility] and had a tele health visit and was instructed to go to the ER when she found out about her worsening symptoms. Patient was seen 2 times today. Patient had improvement in her speech throughout the day as well as some movement of her right upper extremity. Review of systems negative for chest pain or shortness of breath. Negative for coughing. She had a swallow evaluation and continues to eat a general diet. Her is assisting her eating. Patient's urine culture was positive for infection on her last hospitalization the final culture just came back. A culture is pending from this ER visit. Patient with E coli and E faecalis. Patient is having no urinary symptoms. Exam Vital Signs (past 8 hours): - 03/28/20 12:20 03/28/20 15:44 Temperature 97.7 F 98.3 F Pulse Rate 65 67 Respiratory Rate 18 16 Blood Pressure 122/58 L 116/55 L Pulse Oximetry 93 93 Oxygen Delivery Method Room Air Oxygen Flow Rate 0 Narrative Exam Narrative: Patient is alert and oriented x3. She is able to follow some commands but with multiple instructions. Right facial droop improved throughout the day. Speech is more intelligible at the end of the day. No lateral tongue welt. Mucous membranes moist and pink without lesions Neck: Supple without adenopathy or bruit Chest: Clear to auscultation without wheezes rhonchi or crackles Cor: Regular rate and rhythm without evidence of atrial fibrillation or ectopy with distant S1-S2 Abdomen: Positive bowel sounds, soft, nontender. No right upper quadrant tenderness. Patient is tender over her right lateral inferior rib cage Extremities no edema pulses intact. Patient has decreased strength 1 to 2/5 with dorsiflexion of the right foot. Patient has hip flexor strength 3 to 4/5 compared to the left. [employer]ist strength on the right hand 1 to 2/5. Biceps strength 1 to 2/5. Neurologic exam as above. Objective Labs Result Diagrams: 03/28/20 04:51 03/28/20 04:51 Labs: Laboratory Results - last 24 hr 03/27/20 03/28/20 03/28/20 20:00 04:51 04:51 WBC 13.0 H RBC 3.93 L Hgb 12.5 Hct 36.4 MCV 92.8 MCH 31.8 MCHC 34.3 RDW 13.4 Plt Count 151 Neut % (Auto) 91.6 H Lymph % (Auto) 3.0 L Hand % (Auto) 5.2 Eos % (Auto) 0.0 L Baso % (Auto) 0.2 Neut # (Auto) 26725 H Lymph # (Auto) 400 L Hand # (Auto) 700 Eos # (Auto) 0 Baso # (Auto) 0 Sodium 133 L Potassium 3.6 Chloride 98 Carbon Dioxide 28 BUN 19 H Creatinine 0.55 Estimated GFR > 60.0 BUN/Creatinine Ratio 34.5 H Glucose 144 H Calcium 9.2 Urine Color Yellow Urine Appearance Cloudy Urine pH 5.5 Ur Specific [place] 1.020 Urine Protein 1+ H Urine Glucose (UA) Negative Urine Ketones Trace H Urine Occult Blood Trace-intact Urine Nitrate Negative Urine Bilirubin Negative Urine Urobilinogen 1.0 Ur Leukocyte Esterase 1+ H Urine RBC 0-1/hpf Urine WBC 5-10/hpf H Ur Squamous Epith Cells 1-5 /hpf Ur Transition Epith Cell 1-5/hpf Urine Bacteria Moderate (10-30) H Ur Culture Indicated? Specimen cultured Assessment & Plan Assessment & Plan narrative: 84-year-old female with recent CVA secondary to paroxysmal atrial fibrillation with recurrence in her symptoms thought to be likely attributed to reactivation of previous CVA Plan: She be admitted to the hospital for further treatment. PT, OT and speech therapy have been consulted as well as social work associate for placement. And thinking that she will likely need inpatient rehab. I did discuss the case with Dr. Tiara Urbina at the [facility] and she did recommend that we proceed with MRI MRA stroke protocol to ensure that there has not been a recurrence or something new. Pending this result will discuss more about anticoagulation. I discussed this with at length. Discussed that she were in a very difficult situation due to her falls her rib fracture her pneumothorax and the possible bleeding into her liver. I previously and discussed with Dr. dodd this weekend and he felt that it was okay to start the Eliquis. She is at risk for falls. This is her 3rd fall despite very careful, cautious care and significant improvement with physical therapy. At this point will continue the baby aspirin [place] have the full read on the MRI and MRA and until patient and her make decisions. In the meantime will continue with her antihypertensives. Her blood pressure looks good. She is unable to tolerate statins so we cannot put her in this. Hypertension. Appears well controlled Plan: Continue amlodipine 10 mg daily and lisinopril 10 mg daily and metoprolol 12.5 mg twice daily. Type 2 diabetes not on medication, diet controlled Plan: Will monitor blood sugars and continue to follow Assessment 4. History of stomach cancer no current issues Assessment 5. Rib fracture with mild pneumothorax without further recurrence or symptoms or change in vitals. Will continue with pain control Assessment 6. 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 Overall H&H stable. Will continue to monitor. Continue treat pain certainly this plays into our decision in terms of anticoagulating Code status is DNI, modified code
[2020-03-28 19:19] VITALS: BP 94/64; PULSE 76; RESP 15; TEMP 36.8; O2SAT 91
[2020-03-28] MEDS: cephALEXin 250 MG CAPSULE PO (21:16)
[2020-03-29] VITALS (9 sets, daily range): BP systolic 101–144; BP diastolic 48–69; PULSE 62–77; RESP 15–18; TEMP 36.3–37.2; O2SAT 90–93
[2020-03-29] MEDS: HYDROCODONE/ACET 10/325 TABLET 1 TAB PO ×2 (02:44→09:32)
[2020-03-29 05:32] LABS: Add Manual Diff / Slide Review NO; Basophils Absolute Auto 0 /uL (0-100); Basophils Percent Auto 0.2 % (0-2); Eosinophils Absolute Auto 0 /uL (0-450); Eosinophils Percent Auto 0.3 % (2-4); Hematocrit 33.8 % (36-46); Hemoglobin 11.5 g/dL (12.0-16.0); Lymphocytes Absolute Auto 500 /uL (1100-4500); Lymphocytes Percent Auto 3.7 % (25-40); Mean Corpuscular HGB Conc 34.1 % (30-36); Mean Corpuscular Hemoglobin 31.6 PG (26-34); Mean Corpuscular Volume 92.8 fL (80-100); Monocytes Absolute Auto 1300 /uL (0-900); Monocytes Percent Auto 9.1 % (3-14); Neutrophils Absolute Auto 12200 /uL (1500-7000); Neutrophils Percent Auto 86.7 % (50-75); Platelet Count 132 X10^3/uL (150-400); Red Blood Cell Count 3.64 X10^6/uL (4.0-5.2); Red Cell Distribution Width 13.4 % (11.6-14.8); White Blood Cell Count 14.1 X10^3/uL (4.5-11.0)
[2020-03-29 05:41] LABS: Alanine Aminotransferase 160 IU/L (<35); Albumin 3.1 g/dL (3.5-5.0); Alkaline Phosphatase 178 U/L (38-126); Aspartate Aminotransferase 170 IU/L (14-36); BUN Creatinine Ratio 40.5 (6-22); Bilirubin Total 1.1 mg/dL (0.2-1.3); Blood Urea Nitrogen 30 mg/dL (7-17); Calcium 9.1 mg/dL (8.4-10.2); Carbon Dioxide 24 mmol/L (22-32); Chloride 96 mmol/L (98-107); Estimated Glomerular Filt Rate > 60.0 mL/min (>60); Globulin 3.2 g/dL (1.7-4.1); Glucose 142 mg/dL (80-110); HEMOLYSIS < 15 (0-50); Sodium 128 mmol/L (137-145); Total Protein 6.3 g/dL (6.3-8.2)
--- NOTE | 2020-03-29 06:33 | PC.NURSE ---
Addendum entered by Mckenna Khan R.N. 03/29/20 06:47: Straight cath at 0645 for 550ml urine out. Original Note: Patient only voided 100ml on shift (50ml on eves). BS estimate: 400ml. Notified sales assistants and salespersons provider, order to straight cath patient.
--- NOTE | 2020-03-29 08:09 | DI.RAD.S_ITS ---
PROCEDURE: XR CHEST 1V INDICATIONS: broken rib TECHNIQUE: One view of the chest was acquired. COMPARISON: [facility], CT, CT CHEST ABD PEL W CON, 03/24/2020, 19:24. [facility], CR, XR CHEST 1V, 03/25/2020, 5:45. [facility], CR, XR CHEST 1V, 03/24/2020, 18:23. FINDINGS: Surgical changes and devices: Thoracoabdominal stents. Right breast clips. Lungs and pleura: Mild air space opacity in the right lower lobe, unchanged. No significant pleural effusion. No pneumothorax appreciated. Mediastinum: Mediastinal contours appear unchanged. Tortuous aorta. Heart size is normal. Bones and chest wall: Subtle undulation in the right lateral ribs corresponding to the nondisplaced fractures seen on recent CT. No suspicious bony lesions. Overlying soft tissues appear unremarkable. IMPRESSION: 1. Small pneumothorax seen on recent CT is not appreciated. 2. Nondisplaced right-sided rib fractures. 3. Mild air space opacity in the right lower lobe, unchanged. Dictated by: Mega Amezcua M.D. on 03/29/2020 at 9:06 Approved by: Mega Amezcua M.D. on 03/29/2020 at 9:10
--- NOTE | 2020-03-29 09:19 | CM.DPC ---
DCP cont: Faxed H&P to [facility] Attn: Darby to fax # [phone] as requested. Fax confirmation scanned in. Shoshana Soto, Sarah Chief Innovation Officer
--- NOTE | 2020-03-29 09:27 | OT.IP.TRT ---
Addendum entered and electronically signed by Emily Grove OT 03/29/20 14:11: Pt would best benefit form acute rehab , however if not able to get in would also benefit from skilled rehab. Original Note: Current Diagnoses Cerebral infarction, unspecified (03/27/20) Occupational Therapy Treatment Note M2 OT-IP Current Condition Start: 03/28/20 12:45 Freq: Status: Active Protocol: Document 03/29/20 13:36 [facility] (Rec: 03/29/20 13:59 [facility] [email or web address]) Occupational Therapy Current Condition Current Condition Treatment Diagnosis Subacute CVA, decreased mobilty and ADl needs. M3 OT- IP Subjective and Pain Start: 03/28/20 12:45 Freq: Status: Active Protocol: Document 03/29/20 13:36 [facility] (Rec: 03/29/20 13:59 [facility] [email or web address]) OT- Subjective Occupational Therapy Visit Type Type Treatment Note Visit Start Time 08:55 Visit Stop Time 09:27 Total Visit Minutes 32 Occupational Therapy Visit Comments Patient Comments Pt eating breakfast and agreed to work with OT. Patient/Caregiver Goals To go to acute rehab and get stronger. OT Pain Assessment Pain When Pain Assessed During Mobility Pain Present Pain Present Pain Reported Location Right Lower Lateral Chest Intensity 5 Scale Used Numeric (0 - 10) M4 OT- IP ADL's Start: 03/28/20 12:45 Freq: Status: Active Protocol: Document 03/29/20 13:36 [facility] (Rec: 03/29/20 13:59 [facility] [email or web address]) OT [id number] General Evaluation Self-Feeding Ability Maximum Assistance Comments OT Self-Feeding Comments Pt needing MAX A to help incorporate use of right hand to hold cup in her hand and assist to raise up towards her mouth in order to drink. Otherwise pt is using left hand to eat with fork for eggs . Noted pocketing on the right and needing cues to clear her mouth with her tongue and at times use of fingers to get the egg out. Pt at times needing cues to swallow as at times holding liquid in her mouth. OT ADL-Grooming General Evaluation Grooming Ability Maximum Assistance Comments OT Grooming Comments MAX AX to help incorporate right hand to hold onto toothpaste while pt able to use left hand to undo the top and brush her teeth.Able to assist pt to weight bear through the right hand while standing with MODA to brush her teeth. WRANGELL assist with right hand in order to help brush her hair. OT ADL-Oral Care General Eval Oral Care Ability Standby Assistance Comments Oral Care Comments Assist for set-up and MAXA to incorporate right hand for needs. M5 OT- IP IADL's Start: 03/28/20 12:45 Freq: Status: Active Protocol: Document 03/28/20 10:37 [facility] (Rec: 03/28/20 13:12 [facility] [id number]) OT-Instrumental Activities of Daily Living Deficits IADL Deficits Identified Deficits Home Safety Awareness Ability to Problem Solve Emergency Unable to Problem Solve Situations Medication Management Medication Management Caregiver Administers Money Management Money Management Caregiver Provides Assistance Meal Preparation Meal Preparation Caregiver Provides Assist Weld Inspector Weld Inspector Caregiver Provides Assist Driving Driving Caregiver Provides Assist M6 OT- IP Functional Cognition Start: 03/28/20 12:45 Freq: Status: Active Protocol: Document 03/29/20 13:36 [facility] (Rec: 03/29/20 13:59 [facility] [email or web address]) Cognitive Factors Limiting Selfcare Function Cognitive Ability Level of Alertness Alert,Drowsy Patient Orientation Name,Year,Situation Attention Span Ability Capable of Focused Attention, Unable to Sustain Attention Ability to Follow Commands Able to Follow One Step Commands Memory Description Short Term Impaired Problem Solving Ability Needs Assist to Identify Solutions Cognitive Comments Cognitive Assessment Comments Pt still having right neglect but better able to problem solve through sequence of grooming and eating needs today. Pt still at times slow to initiate and trouble getting the words out. M7 OT- IP Mobility and Balance Start: 03/28/20 12:45 Freq: Status: Active Protocol: Document 03/29/20 13:36 [facility] (Rec: 03/29/20 13:59 [facility] [email or web address]) OT-Transfer Assessment Sit to and From Stand Sit to and from Stand Moderate Assistance Transfers Transfer Ability Moderate Assistance,Maximum Assistance Technique Transfer Destination Chair Devices Transfer Assistive Devices Gait Belt,Small Based Quad Cane Comments Mobility Comments MODA to incorporate right hand to push up from the recliner. Pt noted increased lean posteriorly and having difficulty to walk and needing assist for balance and keeping upright. Pt having to sit on the BSC at the sink as getting too tired to complete grooming task while standing. OT- Balance Assessment Sitting Balance and Reactions Static Sitting Balance Ability Good Dynamic Sitting Balance Ability Fair Standing Balance and Reactions Static Standing Balance Ability Poor Dynamic Standing Balance Ability Poor M8 OT- IP Objective Assessments Start: 03/28/20 12:45 Freq: Status: Active Protocol: Document 03/29/20 13:36 [facility] (Rec: 03/29/20 13:59 [facility] [email or web address]) OT Strength Comments Strength Comments RUE 3-/5 shoulder, elbow 3/5, hand 3-/5 M9 OT- IP Assessment and Plan Start: 03/28/20 12:45 Freq: Status: Active Protocol: Document 03/29/20 13:36 [facility] (Rec: 03/29/20 13:59 [facility] [email or web address]) OT Summary Assessment and Plan Potential Rehabilitation Potential Good Analytic Complexity at Evaluation Low Summary OT Impairments Range of Motion,Strength, Balance,Coordination,Sensation ,Tone,Functional Cognition, Functional Mobility,Self- Feeding,Grooming,Dressing, Toileting,Bathing,Toilet Transfers,Shower Transfers, Activity Tolerance Progress Towards Goals Slow Progress due to Medical Issues,Slow Progress due to Activity Tolerance,Slow Progress due to Cognition Assessment Summary MRI performed resulted in subacute CVA and new area of hypodensity in the left frontal lobe. Pt noted to fatigue easily today however able to tolerate standing at the sink for part of grooming needs. Pt would benefit from acute rehab. At this time, pt's care would be too great for her to handle at home. Goals Self-Feeding Goal Standby Assistance,Adapted Utensil Grooming Goal Standby Assistance Dressing Goal Minimal Assistance Toileting Goal Standby Assistance Bathing Goal Minimal Assistance Toilet Transfer Goal Standby Assistance Shower Transfer Goal Contact Guard Assistance Patient/Caregiver Education Goal Caregiver Independent Assisting Patient Days to Meet Goals 9 Frequency of Treatment Frequency Of Treatment Once a Day Treatment Plan OT Treatment Plan ADL Training,Functional Cognition Training,Functional Mobility,Patient/Family Education,Discharge Planning Other Treatment Recommendations and Next Incorporation of right hand Treatment Focus for self-feeding MODA. Discharge Recommendations OT Discharge Recommendations Acute Rehab Home Equipment Needs Defer to acute rehab Transportation Needs at Discharge Private Vehicle
[2020-03-29] MEDS: lisinopriL 10 MG TABLET PO (09:32)
[2020-03-29] MEDS: AMLODIPINE 5 MG TABLET 10 MG PO (09:32)
[2020-03-29] MEDS: METOPROLOL IR 25 MG TABLET 12.5 MG PO ×2 (09:32→20:24)
[2020-03-29] MEDS: cephALEXin 250 MG CAPSULE PO (09:33)
[2020-03-29] MEDS: ASPIRIN EC 81 MG TABLET PO (09:33)
[2020-03-29] MEDS: polyethylene glycoL 3350 17 GM POWD.PACK PO (09:33)
--- NOTE | 2020-03-29 10:42 | ST.IPDYTX ---
Visit Care Team Role Provider Type Akiko Temple MD Primary Care Provider Physician Specialty: [facility] Address: [address] [place] [address], [facility] [place], [address] Email: [email or web address] Kathleen Davis MD Emergency Provider Physician Referring Provider Specialty: Emergency Medicine Address: [address] [place] [address], [address] Email: Jeromy Vyas MD Admit Provider Physician Attending Provider Specialty: [facility] Address: [address] [place] [address], [facility] [place], [address] Email: [email or web address] [employer]LE EXAMINER Dysphagia Treatment MOTOR VEHICLE EXAMINER Dysphagia Treatment Start: 03/29/20 09:26 Freq: Status: Active Protocol: Document 03/29/20 09:26 [facility] (Rec: 03/29/20 10:41 [facility] [email or web address]) Dysphagia Treatment Session Time Visit Start Time 08:45 Visit Stop Time 09:10 Total Visit Minutes 25 Setting Assessment Location Acute Care Visit Type Note Type Treatment Note Next Note Type Next Note Type Treatment Note Patient Information Identification Type Name,ID Wristband Subjective Observations Pt was seated in bedside chair eating breakfast. OT in the room as well. seated in window seat. Treatment Liquids Trialed Thin Solids Trialed Dysphagia Mechanical Administration Type Tea Spoon,Cup Consecutive Sips ,Straw,Self-Feeding Oral Strategies Upright at 90 degrees,Lingual Sweep,Controlled Bite/Sip Size Pharyngeal Strategies Sitting Upright (90 deg) Treatment Activities Pt was self feeding eggs, which tended to pocket in the right side. Pt was picking out pieces of egg manually without cueing. She did need cuing to swish and swallow/ spit x2 as well as to wipe residue from right corner of mouth. Pt using safe swallow strategies well. No cough/ choke observed. Throat clear x1. Assessment Patient Response to Treatment Good Rehab Potential Good Assessment of Improvement noted that pt was about the same as yesterday. became sleepy toward end of session. Diet Recommendations Recommendations Continue Current Diet Medication Recommendations As Tolerated Additional Dietary Needs Reminders to Use Strategies Treatment Plan Placement Recommendation after Discharge Inpatient Rehab Facility Appropriate for Continued Therapy Yes Therapy Recommendations Cognitive re-eval (OT or ST) Dysphagia therapy Dysphagia Goals With minimal prompts/cues, Helenako will recall and implement dysarthria and dysphagia strategies as discussed. [ End ]
[2020-03-29] MEDS: CEFTRIAXONE 1 GM/50 ML FROZ.PIGGY IV (10:53)
[2020-03-29] MEDS: SODIUM CHLORIDE 0.9% 1,000 ML 75 ML IV (10:54)
--- NOTE | 2020-03-29 12:29 | PT-IP ANOTE ---
Attempted to see pt at 1020am and pt was sitting in chair sleeping soundly. NICOLASA Rosado reports pt got very tired after OT session earlier and has been drowsy since then. Reattempted at 1150am and pt just returned to bed from chair and pt's stated pt is very sleepy and tired. Will check with pt again this pm.
--- NOTE | 2020-03-29 13:41 | PT.IPTN ---
Current Diagnoses Cerebral infarction, unspecified (03/27/20) Physical Therapy Treatment Note M2 PT-IP Current Condition Start: 03/28/20 08:28 Freq: NEEDED Status: Active Protocol: Document 03/28/20 11:07 AW (Rec: 03/28/20 11:24 AW [id number]) Physical Therapy Current Condition Current Condition Evaluation Date 03/28/20 Treatment Diagnosis CVA; difficulty in walking Onset Date 03/27/20 M3 PT-IP Subjective Start: 03/28/20 08:28 Freq: NEEDED Status: Active Protocol: Document 03/29/20 13:41 [facility] (Rec: 03/29/20 16:07 [facility] [email or web address]) Subjective Physical Therapy Visit Type Type Treatment Note Visit Start Time 13:41 Visit Stop Time 14:19 Total Visit Minutes 38 Number of VP CONSTRUCTION Visits 0 Physical Therapy Visit Comments Patient Comments pt is agreeable to do PT Therapy Pain Assessment Pain When Pain Assessed At Rest Pain Present Pain Present Pain Reported Location Right Lower Lateral Chest Intensity 6 Scale Used Numeric (0 - 10) Pain Management Techniques Re-positioning,Timing of Activity with Medications M4 PT-IP Mobility and Gait Start: 03/28/20 08:28 Freq: NEEDED Status: Active Protocol: Document 03/29/20 13:41 [facility] (Rec: 03/29/20 16:07 AB [id number]) PT-Bed Mobility Assessment Supine to Sit Supine to Sit Maximum Assistance Scooting Scooting to Edge of Bed Maximum Assistance PT-Transfer Assessment Sit to and From Stand Sit to and from Stand Moderate Assistance,Maximum Assistance,1 Person Assistance ,Use of Upper Extremities Equipment Transfer Assistive Device Gait Belt,Front Wheeled Walker Orthotic/Prosthetic Devices or Brace: No Transfers Transfer Destination Chair Transfer Technique Stand Step Pivot Transfer Ability Level of Assist Maximum Assistance,1 Person Assistance,Use of Upper Extremities Comments Mobility Comments completed supine to sit max A and max cues. pt requires cues to use RUE to assist with bed mobility. pt was able to sit on EOB requiring min to mod A to maintain sitting balance. pt completed sit to stand from EOB mod to max A and max cues. (+) R knee buckling requiring assist for steadiness and with increase posterior trunk leaning requiring cues for upright posture and correct position. instructed to use quad cane for support. pt sat back down . requested NAC to assist. pt completed sit to stand again mod to max A and cues. completed step transfer using quad cane mod A x 2 and max cues. pt with difficulty followin instructions and is not using quad cane for support. Assessed use of hemiwalker. pt completed sit to stand from chair mod to max A and cues and ambulated ~ 3 ft using hemiwalker mod A x2 and max cues and was able to use hemiwalker to support but continues to require mod A x 2 and max cues. increase R knee buckling towards end of ambulation and pt instructed to sit back down. positioned pt on chair. call light and table placed wtihin reach. chair alarm on. left pt with spouse in room. Gait Assessment Gait Gait Assistance Required: Moderate Assistance,2 Person Assist Distance (Feet) 3 Able to Maintain Weight Bearing Status Yes During Gait Assistive Devices Assistive Device Gait Belt,[place] Walker Orthotic/Prosthetic Devices or Brace: No Gait Deviations General Gait Pattern Decreased Stride Length, Decreased Feet Clearance,Step- to Gait Factors Limiting Gait Function Factors Limiting Gait Function Decreased Activity Tolerance, Decreased Strength,Limited Range of Motion,Pain,Poor Balance,Poor Safety Awareness Comments Gait Comments pls refer to mobility section for details M5 PT-IP Objective Assessments Start: 03/28/20 08:28 Freq: NEEDED Status: Active Protocol: Document 03/28/20 11:07 AW (Rec: 03/28/20 12:25 AW [id number]) Orientation Orientation/Cognition Level of Alertness Lethargic Orientation Name,Day of Week,Place, Situation Language Function Ability Garbled Speech Safety Awareness Decreased Safety Awareness Memory Description Short Term Impaired Gross Range of Motion Upper Extremity ROM Assessment Right Impaired Impairments AROM right shoulder: FF limited to ~70 degrees Lower Extremity ROM Assessment Within Functional Limits Strength Upper Extremity Strength Assessment Right Impaired Shoulder 3-/5 Elbow 3/5 Wrist 3/5 Hand 3-/5 Lower Extremity Strength Assessment Right Impaired Hip 3+/5 Knee 3+/5 Ankle 3-/5 Coordination Assessment Assessment Finger to Nose Test Normal Performance Coordination Comments Normal with LUE. Unable with RUE Sensation Assessment Comments Sensation Comments Pt denies sensation changes Muscle Tone Muscle Tone Location Right Upper Extremity Type of Tone Hypertonicity,Flexor Severity of Tone Mild Comments Muscle Tone Comments RUE elbow flexion with rigidity of 1+ on modified Supa scale M6 PT-IP Treatment Start: 03/28/20 08:28 Freq: NEEDED Status: Active Protocol: Document 03/29/20 13:41 AB (Rec: 03/29/20 16:07 AB [email or web address]) Physical Therapy Treatment Education Education Provided Safety M7 PT-IP Assessment and Plan Start: 03/28/20 08:28 Freq: NEEDED Status: Active Protocol: Document 03/29/20 13:41 AB (Rec: 03/29/20 16:07 [facility] [email or web address]) PT Summary Assessment and Plan Potential Rehabilitation Potential Good Summary Impairments Pain,ROM,Strength,Balance, Coordination,Sensation,Tone, Cognition,Bed Mobility, Transfers,Gait,Activity Tolerance Progress Towards Goals Slow Progress due to Medical Issues,Slow Progress due to Activity Tolerance Assessment Summary pt requiring 2 person assist with mobility with R knee buckling requiring mod A for stability and cues for quad activation. Pt will benefit from acute rehab vs SNF rehab prior to d/c home. Goals Bed Mobility Goal Minimal Assistance Transfer Goal Minimal Assistance Gait Goal Minimal Assistance,[place] Walker Gait Distance 50 Days to Meet Goals 10 Frequency of Treatment Frequency Of Treatment Twice a Day Treatment Plan Physical Therapy Treatment Plan Bed Mobility Training,Transfer Training,Gait Training, Therapeutic Exercise,Balance Retraining,Post Op Education, Discharge Planning, Neuromuscular Re-ed, Coordination Retraining Other Recommendations and Next Treatment transfers, gait with quad cane Focus , sitting and standing balance , emphasis on use of RUE Recommendations To Nursing Amount of Assist Needed 2 Person Assist Discharge Recommendations PT Discharge Recommendations SNF Rehab,Acute Rehab Transportation Needs at Discharge Wheelchair/Cabulance
--- NOTE | 2020-03-29 15:24 | CM.DPC ---
DCP Acute Rehab planning Per MD, pt not stable for d/c to Inpt Rehab today but likely tomorrow if she remains stable. CHILO called [facility] Acute Re[facility] admissions [facility] and provided additional clinicals to review and received a call back stating pt accepted for their program at discharge and aware it may be for tomorrow. CHILO called [facility] admissions [facility] and he states pt's clinicals still in review as they have 5 admissions today and a few already scheduled for tomorrow and anticipate that once Physician reviews they can accept pt but might not be until Friday but requests SW call in the morning. SW updated him that their facility is pt's preference and if stable for d/c tomorrow likely cannot hold discharge until they have an opening and [facility] will attempt to get clinicals reviewed to determine if they could accept pt when stable for discharge. CHILO updated MD on need for COVID test as last one was taken 03/24/20 and RN placed order for stat COVID today and was able to collect sample. SW met bedside with pt and spouse and updated on acceptance at [facility] and that [facility] may not have an opening at d/c. Spouse confirms that [facility] is their first preference but they would be agreeable with [facility] at d/ if [facility] not an option. Plan: SW to follow closely in the morning to determine if pt stable for discharge tomorrow and calling [facility] to determine if they can accept when pt stable for d/c vs [facility]. CHRISTIE Chinchilla
--- NOTE | 2020-03-29 16:04 | PM.CHAP ---
Staff referral. Pt's spouse requested [facility] [employer] visit. Made connections with [facility]. Brock Santana [phone]
[2020-03-29 16:23] LABS: COVID19 -Nasal RAPID Negative (Negative)
--- NOTE | 2020-03-29 19:15 | PM.PN.1 ---
Subjective Subjective Date Patient Seen: 03/29/20 Time Patient Seen: 10:03 Interval history: A patient seen 2 times today. Once at approximately 10:00 a.m. and then again at 7:15 p.m.. Patient had urinary retention and had in and out catheter at approximately 6:30 a.m. they obtain 400 cc of urine. Patient is very somnolent at the time I am evaluating her as she was given 10 mg of hydrocodone. She awakens but is not really able to respond to questions. Her is at bedside. She otherwise had an uneventful night. She received the hydrocodone for her rib fracture pain. She is taking in some p.o. but is taking quite some time. Her strength in her right upper extremity and right lower extremity is improved from initial presentation for this hospital visit and improved from yesterday morning to yesterday evening. Review of systems is negative Patient has not had a bowel movement Exam Vital Signs (past 8 hours): - 03/29/20 11:43 03/29/20 15:15 Temperature 97.8 F 97.9 F Pulse Rate 70 63 Respiratory Rate 17 16 Blood Pressure 103/50 L 101/48 L Pulse Oximetry 92 92 Oxygen Delivery Method Room Air Oxygen Flow Rate 0 Narrative Exam Narrative: Afebrile Vital signs are stable Blood pressures are improved but then are lower tonight. Neck: Supple Chest: Clear to auscultation without wheezes rhonchi or crackles Cor: Regular rate and rhythm without any murmur Abdomen: Positive bowel sounds, soft, nontender Extremities: No edema Neurologic exam unchanged from yesterday right upper extremity right lower extremity but patient keeps falling asleep while I am talking to her. Objective Labs Result Diagrams: 03/29/20 05:19 03/29/20 05:19 Labs: Laboratory Results - last 24 hr 03/29/20 03/29/20 03/29/20 05:19 05:19 15:21 WBC 14.1 H RBC 3.64 L Hgb 11.5 L Hct 33.8 L MCV 92.8 MCH 31.6 MCHC 34.1 RDW 13.4 Plt Count 132 L Neut % (Auto) 86.7 H Lymph % (Auto) 3.7 L Wilkinson % (Auto) 9.1 Eos % (Auto) 0.3 L Baso % (Auto) 0.2 Neut # (Auto) 55256 H Lymph # (Auto) 500 L Wilkinson # (Auto) 1300 H Eos # (Auto) 0 Baso # (Auto) 0 Sodium 128 L Potassium 4.0 Chloride 96 L Carbon Dioxide 24 BUN 30 H Creatinine 0.74 Estimated GFR > 60.0 BUN/Creatinine Ratio 40.5 H Glucose 142 H Calcium 9.1 Total Bilirubin 1.1 AST 170 H ALT 160 H Alkaline Phosphatase 178 H Total Protein 6.3 Albumin 3.1 L Globulin 3.2 Albumin/Globulin Ratio 1.0 COVID-19 PCR Negative Assessment & Plan Assessment & Plan narrative: 84-year-old female admitted for worsening stroke symptoms. Spent 60 minutes with patient in counseling and coordination of care. Meeting with patient her . Discussing the case with Radiology as well as with Dr. Tiara Urbina the patient's neurologist at the [facility]. Based on the MRI MRA which is not show a new stroke I think this is recrudescence of her previous stroke probably related to her fall, rib fracture, pneumothorax, possible bleed into hepatic cyst, narcotics and possible UTI. At this point I had a lengthy discussion with the patient and her about starting back on Eliquis. We discussed the market increased risk for recurrent stroke given her paroxysmal atrial fibrillation during the next 1-2 months. We discussed the risk of bleeding. We discussed her risks of falls. The patient spoke with his kids and they all agree they would like to restart the Eliquis so we will do this tonight. She had a baby aspirin today. We will continue with PT and OT and she will need inpatient rehab hopefully back at the [facility] where she was after her stroke February 19. At this point I feel like her somnolence is related to the hydrocodone. We will stop this hydrocodone. We will increase her IV fluids if she is having poor p.o. intake as well as hyponatremia Assessment 2. Hyponatremia suspect related to overall health status and poor p.o. intake Plan: Chest x-ray today unremarkable. Will start on normal saline. Assessment 3. Hypertension with decreased now blood pressure possibly related to hydrocodone possibly related to poor p.o. intake Plan: We will do IV fluids and we will hold her blood pressure medicines in a.m. if she continues to have blood pressure systolic less 110 Assessment 4. Type 2 diabetes diet controlled Plan: Continue to monitor blood sugars Assessment 5. Elevated white blood cell count was suspicion for possible UTI with worsening in her WBC Plan: Will give ceftriaxone IV 1 mg every 24 hours. Will stop Keflex Assessment 6. Elevated liver function test of unclear etiology Plan will continue to monitor it continues to worsen will repeat abdominal ultrasound or CT Assessment 7. Paroxysmal atrial fibrillation now in regular rhythm with well-controlled rate Plan continue on same medications. Will restart Eliquis. Discussed risks benefits. Assessment 8. Rib fracture pain well controlled. Stop hydrocodone will use Tylenol Assessment 9. Pneumothorax no current symptoms. Will follow
[2020-03-29] MEDS: APIXABAN 5 MG TABLET PO (20:23)
[2020-03-29] MEDS: SODIUM CHLORIDE 0.9% 1,000 ML 125 ML IV (22:37)
[2020-03-30] VITALS (8 sets, daily range): BP systolic 117–133; BP diastolic 55–89; PULSE 70–130; RESP 16–18; TEMP 36.2–37.4; O2SAT 92–96
[2020-03-30 05:19] LABS: Add Manual Diff / Slide Review NO; Basophils Absolute Auto 0 /uL (0-100); Basophils Percent Auto 0.2 % (0-2); Eosinophils Absolute Auto 300 /uL (0-450); Eosinophils Percent Auto 3.3 % (2-4); Hematocrit 31.3 % (36-46); Hemoglobin 10.7 g/dL (12.0-16.0); Lymphocytes Absolute Auto 500 /uL (1100-4500); Lymphocytes Percent Auto 6.5 % (25-40); Mean Corpuscular HGB Conc 34.1 % (30-36); Mean Corpuscular Hemoglobin 31.7 PG (26-34); Mean Corpuscular Volume 92.9 fL (80-100); Monocytes Absolute Auto 1100 /uL (0-900); Monocytes Percent Auto 14.9 % (3-14); Neutrophils Absolute Auto 5700 /uL (1500-7000); Neutrophils Percent Auto 75.1 % (50-75); Platelet Count 136 X10^3/uL (150-400); Red Blood Cell Count 3.37 X10^6/uL (4.0-5.2); Red Cell Distribution Width 13.6 % (11.6-14.8); White Blood Cell Count 7.6 X10^3/uL (4.5-11.0)
[2020-03-30 05:32] LABS: Alanine Aminotransferase 586 IU/L (<35); Albumin 2.5 g/dL (3.5-5.0); Albumin Globulin Ratio 0.9 (1.0-2.8); Alkaline Phosphatase 134 U/L (38-126); Aspartate Aminotransferase 677 IU/L (14-36); BUN Creatinine Ratio 47.3 (6-22); Bilirubin Total 0.8 mg/dL (0.2-1.3); Blood Urea Nitrogen 35 mg/dL (7-17); Calcium 8.2 mg/dL (8.4-10.2); Carbon Dioxide 26 mmol/L (22-32); Chloride 102 mmol/L (98-107); Estimated Glomerular Filt Rate > 60.0 mL/min (>60); Globulin 2.9 g/dL (1.7-4.1); Glucose 104 mg/dL (80-110); HEMOLYSIS < 15 (0-50); Potassium 3.7 mmol/L (3.4-5.1); Sodium 131 mmol/L (137-145); Total Protein 5.4 g/dL (6.3-8.2)
[2020-03-30] MEDS: SODIUM CHLORIDE 0.9% 1,000 ML 125 ML IV ×2 (06:12→15:30)
--- NOTE | 2020-03-30 08:58 | CM.DPC ---
Addendum entered by Echo Mata LPN 03/30/20 14:05: Dr. Temple was here as planned to completed the d/c summary. She stated that she needed to first discuss the CT abdomen and pelvis with Radiology as she now is very concerned that pt may have a liver laceration and be bleeding into this. She is consulting General Surgery: Dr. Cavazos She did then speak with Clara/[facility] and expressed her concerns. Clara agreed that it would be best no continue care of pt in the hospital setting. Dr. Temple stated pt might be stable for d/c tomorrow... Spoke then with Clara. She confirms this is her last bed at the facility. She can hold this until tomorrow but cannot guarantee more than that. Dr. Temple is updating pt and her family. Will follow up tomorrow. Addendum entered by Echo Mata LPN 03/30/20 11:22: Met with pt and her and updated them re the d/c dispo for today and reasons for this. Pt expressed understanding and says this will just fine. He and his daughter plan to drive pt to the facility. Clara/[facility] has confirmed this is ok as long as both family members are masked and with symptom checks while in contact with the pt. She would like pt to leave the hospital no later than 1500 for admission to their facility. Pt's is provided with the brochure which includes the address. Did check in with PT dept and confirmed this is appropriate d/c transport and that PT will assist as need be with the getting pt into the car. Will follow prn until pt leaves Nurse/Nurse report number is given to NICOLASA Carroll along with update. Addendum entered by Echo Mata LPN 03/30/20 10:55: [facility] has called back. He now cannot be sure there will be an opening before Friday and cannot be certain about Friday. Have talked with Dr. Temple and she agrees pt should then d/c to [facility] today. She will be here about 1300 to do the d/c. The facility will need the d/c summary: this will service as their orders. Will update pt and spouse now. Will check on transport: car vs w/c Addendum entered by Echo Mata LPN 03/30/20 09:12: Am faxing last night's progress note from Dr. Temple as well as the last PT/OT/MEASUREMENT PSYCHOLOGIST notes from yesterday as do not think the facility has received these. Received a call from [facility] INPT rehab wondering about status of referral. Explained specifics as per Dr. Temple. They keep pt's information for now...will update them as the day goes on. Original Note: DCP: continued: case received, EMR reviewed and spoke this morning with Dr. Temple. She reported that pt was stable for d/c to the INPT Rehab setting when bed available. She stated that [facility] [place] was very important as pt had recently had her stay there and she did not want to send her to [facility] as that is very much not in the best interest of this patient. Have now left a vm on the Admission cell: [phone] and the main line: [phone] re pt's readiness for d/c today and am awaiting a call back. Dr. Temple has returned to clinic and will return today during the noon hour to place orders if pt is accepted for today at [facility]. Will follow closely COVID-19 is -: 03/29 1520 Will fax this to the facility today.
[2020-03-30] MEDS: ACETAMINOPHEN 325 MG TABLET 650 MG PO (09:03)
[2020-03-30] MEDS: METOPROLOL IR 25 MG TABLET 12.5 MG PO ×2 (09:05→20:32)
[2020-03-30] MEDS: APIXABAN 5 MG TABLET PO (09:05)
[2020-03-30] MEDS: lisinopriL 10 MG TABLET PO (09:05)
[2020-03-30] MEDS: polyethylene glycoL 3350 17 GM POWD.PACK PO (09:06)
--- NOTE | 2020-03-30 09:41 | DI.CT.S_ITS ---
PROCEDURE: CT ABDOMEN PELVIS WO CON INDICATIONS: hemorrhagic hepatic cyst TECHNIQUE: Noncontrast 5 mm thick sections acquired from the diaphragms to the symphysis. 5 mm coronal and sagittal reformats were then performed. For radiation dose reduction, the following was used: automated exposure control, adjustment of mA and/or kV according to patient size. COMPARISON: [facility], CT, CT ANGIO CHEST ABDOMEN PELVIS, 04/02/2019, 14:39. [facility], CT, CT ANGIO CHEST ABDOMEN PELVIS, 10/04/2019, 12:38. [facility], CT, CT CHEST ABD PEL W CON, 03/24/2020, 19:24. FINDINGS: Image quality: There is metallic streak artifact from patient's right hip prosthesis. There is mild motion artifact also noted. ABDOMEN: Lung bases: There is a new small right pleural effusion with associated compressive atelectasis and consolidation in the right lower lobe. Mild dependent atelectasis is also noted in the left lower lobe. Within the right middle lobe, there is a small 3 mm pulmonary nodule on series 3 image 4 which appears similar compared to prior studies. Heart size is enlarged. Solid organs: A large cyst is redemonstrated posteriorly in the right hepatic lobe, measuring up to 2.5 x 4.9 cm. There is an internal hyperdense component measuring up to 4.5 cm redemonstrated without change in attenuation values compared to the prior contrast enhanced study. The findings are consistent with residual blood product from prior hemorrhage. An adjacent cystic area of hyperattenuation within segment 7 of the right hepatic lobe likely represents an associated small laceration. Characterization is limited on the current study in the absence of intravenous contrast. In segment 8 of the right hepatic lobe, a small cyst is redemonstrated measuring up to 1.3 cm. Marked distention of the gallbladder is demonstrated, increased from the prior study, without associated wall thickening or calcified gallstones. Prominent intra-axial hepatic biliary ductal dilatation is also again noted, with the common bile duct measuring up to approximately 1.1 cm. Pancreas is mildly atrophic in size without peripancreatic fat stranding or fluid collections. Spleen is normal in size. No adrenal nodules. Kidneys demonstrate no hydronephrosis. There is progressive decrease in size of a left perinephric hematoma collection which now measures up to 6.9 x 5.5 cm in transverse dimension with increased wall thickening and dependent clot. Curvilinear high density is redemonstrated within the anterior left kidney which may represent embolization material. Peritoneum and bowel: Unenhanced bowel loops demonstrate normal wall thickness and caliber. There is colonic diverticulosis without acute diverticulitis. No free fluid or air. Nodes and vessels: No retroperitoneal or mesenteric adenopathy by size criteria. There is an abdominal aortic aneurysm status post endovascular stent graft repair redemonstrated. Associated vascular stents are redemonstrated at the origins of the celiac, superior mesenteric, and renal arteries. There is progressive slight decrease in size of the aneurysm sac, now measuring up to 5.3 cm in anteroposterior dimension. Miscellaneous: No ventral hernias. PELVIS: Genitourinary: Bladder wall thickness is normal. Miscellaneous: No inguinal hernias or adenopathy. Bones: A right hip prosthesis is redemonstrated with associated toxic artifact slightly limiting evaluation. No suspicious bony lesions. A mild inferior endplate compression deformity is redemonstrated in the T12 vertebral body. IMPRESSION: 1. Loculated high density blood product redemonstrated within a large right hepatic cyst consistent with sequela of prior hemorrhage into the cyst. A possible associated small hepatic laceration is noted in segment 7, with evaluation limited on the current study in the absence of intravenous contrast. 2. Progressive decrease in size and evolution of a left perinephric hematoma. 3. Increased distention of the gallbladder without associated wall thickening or calcified gallstones. Persistent biliary ductal dilatation also demonstrated. The findings are nonspecific and may reflect sequelae of biliary obstruction due to a noncalcified gallstone or nonvisualized mass lesion. Recommend correlation clinically and consider initial further evaluation with an ultrasound. 4. New small right pleural effusion with associated right lower lobe compressive atelectasis and consolidation. Dictated by: Pedro Fong M.D. on 03/30/2020 at 10:00 Approved by: Pedro Fong M.D. on 03/30/2020 at 10:38
[2020-03-30] MEDS: CEFTRIAXONE 1 GM/50 ML FROZ.PIGGY IV (10:35)
--- NOTE | 2020-03-30 12:10 | PT.IPTN ---
Current Diagnoses Cerebral infarction, unspecified (03/27/20) Physical Therapy Treatment Note M2 PT-IP Current Condition Start: 03/28/20 08:28 Freq: NEEDED Status: Active Protocol: Document 03/28/20 11:07 AW (Rec: 03/28/20 11:24 AW [id number]) Physical Therapy Current Condition Current Condition Evaluation Date 03/28/20 Treatment Diagnosis CVA; difficulty in walking Onset Date 03/27/20 M3 PT-IP Subjective Start: 03/28/20 08:28 Freq: NEEDED Status: Active Protocol: Document 03/30/20 11:40 SP (Rec: 03/30/20 13:41 SP [email or web address]) Subjective Physical Therapy Visit Type Type Treatment Note Visit Start Time 11:40 Visit Stop Time 12:10 Total Visit Minutes 30 Notes in room, observation only during tx. Number of DATABASES COMPUTER CONSULTANT Visits 1 Physical Therapy Visit Comments Patient Comments pt agreeable to working with PT. Therapy Pain Assessment Pain When Pain Assessed During Mobility Pain Present Pain Present Pain Reported Location Right Abdomen Intensity 6 Scale Used R lateral ribcage Pain Behaviors Facial Grimacing,Wincing Pain Management Techniques Re-positioning,Timing of Activity with Medications M4 PT-IP Mobility and Gait Start: 03/28/20 08:28 Freq: NEEDED Status: Active Protocol: Document 03/30/20 11:40 SP (Rec: 03/30/20 13:41 SP [email or web address]) PT-Bed Mobility Assessment Rolling Type of Rolling Roll to Right Level of Assist Minimal Assistance,1 Person Assistance Supine to Sit Supine to Sit Maximum Assistance,1 Person Assistance,Head of Bed Elevated Scooting Scooting to Edge of Bed Minimal Assistance PT-Transfer Assessment Sit to and From Stand Sit to and from Stand Moderate Assistance,1 Person Assistance,Use of Upper Extremities Equipment Transfer Assistive Device Gait Belt,[place] Walker Orthotic/Prosthetic Devices or Brace: No Transfers Transfer Destination Chair Transfer Technique SPT, pt ambulated using HW Transfer Ability Level of Assist Moderate Assistance,1 Person Assistance,Use of Upper Extremities Comments Mobility Comments Pt was elevated supine in bed when arrived. Log roll to R then R sidelying to sitting Max A of 1 person for trunk support at posterior R upper back while patient pulled from therapist's hand to right herself to sitting, she was able to reposition BLE herself to EOB. Min A for trunk sitting balance support while patient scoot foward using LUE to EOB. SBA for sitting balance at EOB. Sit to stand LUE push from EOB Mod A to standing then transitioning LUE to HW, occasional cuing only required for R quad facilitation during LLE mobility noted improvement today. Step pivot transfer to R bed to chair using HW with LUE and intermitttent BEAUTY CONSULTANT with RUE and cuing for LE, HW and body spacial positionining awareness, DATABASES COMPUTER CONSULTANT managed IV pole and tubing on patient's R side when needed. Cuing for backin up fully with close HW positioning then Min A for slow sittign descent in to chair. After 3 min rest patient patient sit to stand Mod A using HW walked Mod A of 1 for balance support, cuing for occasional HW positioning and RLe foot clearance, noted R lateral lean Min A for recovery, approx 7 ft to Tv and Min A during pivot turn to sit in folding chair and cuing for reaching with LUE for safe descent. Pt sat on chair approx 7 min brushing teeth, support for holding peanut basin to spitting into but able to complete brushing herself. in room provided supplies needed. Gait Assessment Gait Gait Assistance Required: Moderate Assistance,1 Person Assist Distance (Feet) 8 Able to Maintain Weight Bearing Status Yes During Gait Assistive Devices Assistive Device Gait Belt,[place] Walker Orthotic/Prosthetic Devices or Brace: No Gait Deviations General Gait Pattern Antalgic,Decreased Stride Length,Decreased Feet Clearance,Lateral Trunk Lean, Step-to Gait Factors Limiting Gait Function Factors Limiting Gait Function Decreased Activity Tolerance, Decreased Strength,Limited Range of Motion,Pain,Poor Balance,Poor Safety Awareness Comments Gait Comments pls refer to mobility section for details Stair Climbing Assessment Comments Stair Climbing Comments Not assessed. No stairs at home. PT-Balance Assessment Sitting Balance and Reactions Static Sitting Balance Ability Good Dynamic Sitting Balance Ability Fair Standing Balance and Reactions Static Standing Balance Ability Poor Dynamic Standing Balance Ability Poor Device Used HW M5 PT-IP Objective Assessments Start: 03/28/20 08:28 Freq: NEEDED Status: Active Protocol: Document 03/28/20 11:07 AW (Rec: 03/28/20 12:25 AW [id number]) Orientation Orientation/Cognition Level of Alertness Lethargic Orientation Name,Day of Week,Place, Situation Language Function Ability Garbled Speech Safety Awareness Decreased Safety Awareness Memory Description Short Term Impaired Gross Range of Motion Upper Extremity ROM Assessment Right Impaired Impairments AROM right shoulder: FF limited to ~70 degrees Lower Extremity ROM Assessment Within Functional Limits Strength Upper Extremity Strength Assessment Right Impaired Shoulder 3-/5 Elbow 3/5 Wrist 3/5 Hand 3-/5 Lower Extremity Strength Assessment Right Impaired Hip 3+/5 Knee 3+/5 Ankle 3-/5 Coordination Assessment Assessment Finger to Nose Test Normal Performance Coordination Comments Normal with LUE. Unable with RUE Sensation Assessment Comments Sensation Comments Pt denies sensation changes Muscle Tone Muscle Tone Location Right Upper Extremity Type of Tone Hypertonicity,Flexor Severity of Tone Mild Comments Muscle Tone Comments RUE elbow flexion with rigidity of 1+ on modified Supa scale M6 PT-IP Treatment Start: 03/28/20 08:28 Freq: NEEDED Status: Active Protocol: Document 03/30/20 11:40 SP (Rec: 03/30/20 13:41 SP [email or web address]) Physical Therapy Treatment Education Education Provided Safety Other Treatments Other Treatment Performed Improved sitting balance at EOB multidirectional balance, SBA. M7 PT-IP Assessment and Plan Start: 03/28/20 08:28 Freq: NEEDED Status: Active Protocol: Document 03/30/20 11:40 SP (Rec: 03/30/20 13:41 SP [email or web address]) PT Summary Assessment and Plan Potential Rehabilitation Potential Good Status of Condition at Evaluation Evolving Summary Impairments Pain,ROM,Strength,Balance, Coordination,Sensation,Tone, Cognition,Bed Mobility, Transfers,Gait,Activity Tolerance Progress Towards Goals Slow Progress due to Medical Issues,Slow Progress due to Activity Tolerance Assessment Summary pt requiring 1 person assist with mobility mod A using HW for stability and cues for R quad activation in WB. Pt will benefit from acute rehab vs SNF rehab prior to d/c home . Goals Bed Mobility Goal Minimal Assistance Transfer Goal Minimal Assistance Gait Goal Minimal Assistance,[place] Walker Gait Distance 50 Days to Meet Goals 10 Frequency of Treatment Frequency Of Treatment Twice a Day Treatment Plan Physical Therapy Treatment Plan Bed Mobility Training,Transfer Training,Gait Training, Therapeutic Exercise,Balance Retraining,Post Op Education, Discharge Planning, Neuromuscular Re-ed, Coordination Retraining Other Recommendations and Next Treatment transfers, gait with quad cane Focus , sitting and standing balance , emphasis on use of RUE Recommendations To Nursing Amount of Assist Needed 1 Person Assist Discharge Recommendations PT Discharge Recommendations SNF Rehab,Acute Rehab Transportation Needs at Discharge Wheelchair/Cabulance
--- NOTE | 2020-03-30 12:21 | PC.NURSE ---
Pt c/o pain to her right rib area. Tylenol given at 0903 650mg. Pt has been up to the chair and back to bed several times since she received the Tylenol but now it is hurting again. Tylenol ordered for q6 dosing and therefore not available to be given. No other pain meds on NOV. Notified Pt and Spouse and they stated they understood. Dr. Temple to see Pt during lunch to write d/c orders at that time and will ask if she would like the Pt to have something else for pain.
--- NOTE | 2020-03-30 13:34 | PM.DS.1 ---
History of Present Illness History of Present Illness Date Patient Seen: 03/30/20 Time Patient Seen: 13:35 Date of Onset of Symptoms: 03/27/20 Chief complaint: Stroke Like Symptoms, Can't Stand, Slurred Speech Discharge Providers Provider Date of admission: 03/27/20 17:41 Primary care physician: Akiko Temple MD Consults: 03/27/20 18:55 Consult to Discharge Planning Routine Comment: Consult to Occupational Therapy Evaluate & Treat Comment: Physician Instructions: Evaluate and treat Consult to Physical Therapy Evaluate & Treat Comment: Physician Instructions: Evaluate and Treat Consult to Speech Therapy Evaluate & Treat Comment: Physician Instructions: Evaluate and treat 03/27/20 19:45 Consult to Dietitian, Adult Routine Comment: Reason For Exam: unintentional weight loss >15lbs Consult to Pastoral Services Routine Comment: patient request- patient states they are [employer] Discharge provider: Akiko Temple MD Summary Hospital Course Discharge Diagnosis: Ischemic CVA, MCA distribution with recrudesence as reason for admit and not new CVA or extension HTN UTI Rib fracture Right Pneumothorax, stable Status at Discharge Cognitive/behavioral status at discharge: oriented Functional status at discharge: uses cane/walker Overall status at discharge: patient is not back to baseline Exam Vital Signs (past 8 hours): - 03/30/20 07:40 03/30/20 09:05 03/30/20 11:10 Temperature 98.0 F 97.6 F Pulse Rate 84 70 Respiratory Rate 18 16 Blood Pressure 130/76 130/76 118/59 L Pulse Oximetry 92 94 Oxygen Delivery Method Nasal Cannula Oxygen Flow Rate 0 Objective Labs Result Diagrams: 03/30/20 05:02 03/30/20 05:02 Labs: Laboratory Results - last 24 hr 03/29/20 03/30/20 03/30/20 15:21 05:02 05:02 WBC 7.6 RBC 3.37 L Hgb 10.7 L Hct 31.3 L MCV 92.9 MCH 31.7 MCHC 34.1 RDW 13.6 Plt Count 136 L Neut % (Auto) 75.1 H Lymph % (Auto) 6.5 L Owen % (Auto) 14.9 H Eos % (Auto) 3.3 Baso % (Auto) 0.2 Neut # (Auto) 5700 Lymph # (Auto) 500 L Owen # (Auto) 1100 H Eos # (Auto) 300 Baso # (Auto) 0 Sodium 131 L Potassium 3.7 Chloride 102 Carbon Dioxide 26 BUN 35 H Creatinine 0.74 Estimated GFR > 60.0 BUN/Creatinine Ratio 47.3 H Glucose 104 Calcium 8.2 L Total Bilirubin 0.8 AST 677 H ALT 586 H Alkaline Phosphatase 134 H Total Protein 5.4 L Albumin 2.5 L Globulin 2.9 Albumin/Globulin Ratio 0.9 L COVID-19 PCR Negative Discharge Plan Discharge Plan Patient Disposition: Xfer Inpatient Rehab Discharge orders & Medications Discharge Orders: Discharge (Order); Ordered 03/30/20 Ordered By: Akiko Temple Prescriptions: No Action LISINOPRIL (Zestril / Prinivil) 10 mg PO Q DAY Qty: 0 RF: 0 POLYETHYLENE GLYCOL 3350 17 gm PO PRN PRN (Reason: Constipation) Qty: 0 RF: 0 amlodipine [Norvasc] 5 MG tablet 10 mg PO QDAY Qty: 0 RF: 0 metoprolol tartrate 25 MG tablet 12.5 mg PO BID Qty: 0 RF: 0 Eliquis 2.5 mg Tablet 2.5 mg PO BID RF: 0 hydrocodone-acetaminophen 5-325 mg Tablet 1 tab PO Q4HR PRN (Reason: Pain, Mild (1-3)) Qty: 30 RF: 0 Follow up/Referrals: Akiko Temple MD [Primary Care Provider] - Diet/Activity/Treatments Diet: Carb-consistent/Diabetic Liquid consistency: Normal/Thin Diet comment: dysphagia mechanical thin [facility] Rehab type: Physical therapy, Occupational therapy and Speech therapy Discharge Data Primary Care Provider: Akiko Temple
[2020-03-30] MEDS: OXYCODONE IR 5 MG TABLET PO ×2 (13:37→19:23)
--- NOTE | 2020-03-30 14:40 | PT.IPTN ---
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 (03/27/20) Physical Therapy Treatment Note M2 PT-IP Current Condition Start: 03/28/20 08:28 Freq: NEEDED Status: Active Protocol: Document 03/28/20 11:07 AW (Rec: 03/28/20 11:24 AW [id number]) Physical Therapy Current Condition Current Condition Evaluation Date 03/28/20 Treatment Diagnosis CVA; difficulty in walking Onset Date 03/27/20 M3 PT-IP Subjective Start: 03/28/20 08:28 Freq: NEEDED Status: Active Protocol: Document 03/30/20 14:40 AB (Rec: 03/30/20 16:21 AB [id number]) Subjective Physical Therapy Visit Type Type Treatment Note Visit Start Time 14:40 Visit Stop Time 15:19 Total Visit Minutes 39 Number of [employer] SAL[employer]ATE Visits 0 Physical Therapy Visit Comments Patient Comments pt agreeable to do PT. spouse in room with pt. M4 PT-IP Mobility and Gait Start: 03/28/20 08:28 Freq: NEEDED Status: Active Protocol: Document 03/30/20 14:40 AB (Rec: 03/30/20 16:21 AB [id number]) PT-Bed Mobility Assessment Supine to Sit Supine to Sit Maximum Assistance,1 Person Assistance Sit to Supine Sit to Supine Maximum Assistance,1 Person Assistance Scooting Scooting to Edge of Bed Maximum Assistance PT-Transfer Assessment Sit to and From Stand Sit to and from Stand Maximum Assistance,1 Person Assistance,Use of Upper Extremities Comments Mobility Comments pt completed supine to sit max A and max cues. pt was able to sit on EOB min A. pt appearing to have R sided neglect and requires cues to make eye contact to the R. completed sit to stand max A and max cues. conducted standing balance activity: presents with increase R knee flexion during standing, increase posterior and lateral leaning to the R, cued to correct and reposition and pt requires max A to complete. pt used hemiwalker during standing. pt sat back and rested. agreed to ambulate. NAC present to assist with ambulation. pt completed sit to stand max A and max cues and ambulated ~ 7 ft x 2 using modesto walker max A x 2 and max cues. spouse wanted pt back in bed and assisted. completed sit to supine max A and max cues. positioned pt in bed. call light and table within reach. left pt with spouse in room. Gait Assessment Gait Gait Assistance Required: Maximum Assistance,2 Person Assist Distance (Feet) 7 Able to Maintain Weight Bearing Status Yes During Gait Assistive Devices Assistive Device Gait Belt,[place] Walker Orthotic/Prosthetic Devices or Brace: No Gait Deviations General Gait Pattern Antalgic,Decreased Stride Length,Decreased Feet Clearance,Narrow Based Gait, Step-to Gait Factors Limiting Gait Function Factors Limiting Gait Function Decreased Activity Tolerance, Decreased Strength, Incoordination,Limited Range of Motion,Pain,Poor Balance, Poor Safety Awareness Comments Gait Comments pls refer to mobility section for details M5 PT-IP Objective Assessments Start: 03/28/20 08:28 Freq: NEEDED Status: Active Protocol: Document 03/28/20 11:07 AW (Rec: 03/28/20 12:25 AW [id number]) Orientation Orientation/Cognition Level of Alertness Lethargic Orientation Name,Day of Week,Place, Situation Language Function Ability Garbled Speech Safety Awareness Decreased Safety Awareness Memory Description Short Term Impaired Gross Range of Motion Upper Extremity ROM Assessment Right Impaired Impairments AROM right shoulder: FF limited to ~70 degrees Lower Extremity ROM Assessment Within Functional Limits Strength Upper Extremity Strength Assessment Right Impaired Shoulder 3-/5 Elbow 3/5 Wrist 3/5 Hand 3-/5 Lower Extremity Strength Assessment Right Impaired Hip 3+/5 Knee 3+/5 Ankle 3-/5 Coordination Assessment Assessment Finger to Nose Test Normal Performance Coordination Comments Normal with LUE. Unable with RUE Sensation Assessment Comments Sensation Comments Pt denies sensation changes Muscle Tone Muscle Tone Location Right Upper Extremity Type of Tone Hypertonicity,Flexor Severity of Tone Mild Comments Muscle Tone Comments RUE elbow flexion with rigidity of 1+ on modified Supa scale M6 PT-IP Treatment Start: 03/28/20 08:28 Freq: NEEDED Status: Active Protocol: Document 03/30/20 11:40 SP (Rec: 03/30/20 13:41 SP [id number]) Physical Therapy Treatment Education Education Provided Safety Other Treatments Other Treatment Performed Improved sitting balance at EOB multidirectional balance, SBA. M7 PT-IP Assessment and Plan Start: 03/28/20 08:28 Freq: NEEDED Status: Active Protocol: Document 03/30/20 14:40 AB (Rec: 03/30/20 16:21 AB [id number]) PT Summary Assessment and Plan Potential Rehabilitation Potential Good Summary Impairments Pain,ROM,Strength,Balance, Coordination,Sensation,Tone, Cognition,Bed Mobility, Transfers,Gait,Activity Tolerance Progress Towards Goals Slow Progress due to Medical Issues Assessment Summary pt continues to require 2 person assist with mobility and seems to have R sided neglect/inattention affecting balance and mobility. pt will require acute rehab vs SNF rehab to improve strength and function. Goals Bed Mobility Goal Minimal Assistance Transfer Goal Minimal Assistance Gait Goal Minimal Assistance,[place] Walker Gait Distance 50 Days to Meet Goals 10 Frequency of Treatment Frequency Of Treatment Twice a Day Treatment Plan Physical Therapy Treatment Plan Bed Mobility Training,Transfer Training,Gait Training, Therapeutic Exercise,Balance Retraining,Post Op Education, Discharge Planning, Neuromuscular Re-ed, Coordination Retraining Other Recommendations and Next Treatment transfers, gait with quad cane Focus , sitting and standing balance , emphasis on use of RUE Recommendations To Nursing Amount of Assist Needed 2 Person Assist Discharge Recommendations PT Discharge Recommendations SNF Rehab,Acute Rehab Transportation Needs at Discharge Wheelchair/Cabulance
--- NOTE | 2020-03-30 16:03 | PM.CN ---
History of Present Illness Consult details Date Patient Seen: 03/30/20 Time Patient Seen: 16:08 Chief complaint: Stroke Like Symptoms, Can't Stand, Slurred Speech Reason for consult: Transaminitis, liver hematoma Requesting provider: Akiko Temple Narrative: This is an 84 yo woman with history of HTN, HLD, anticoagulation on Eliquis, a AAA with stent, recent stroke, recent fall with rib fractures and hepatic bleed, who was discharged on 03/26 after her fall, and readmitted the next day due to worsening of her stroke symptoms. She has been in the hospital for the last 3 days, and was restarted on Eliquis yesterday. This morning her labs were significant for a drop in her hemoglobin, and an increase in her LFTs. Repeat CT scan just shows an evolution of the blood products in the hepatic cyst where she bled after the trauma. She does have an enlarged dilated gallbladder, but no other particular signs of cholecystitis. Her white count is normal, she is on antibiotics for UTI. She reports a poor appetite, and some right upper quadrant pain. ROS: CONSTITUTIONAL: No fever chills or sweats. NEUROLOGICAL: Slurred speech, right facial droop, right hemiparesis, no headache decreased sensation in her right arm and right leg EENT: No sore throat or difficulty in swallowing CARDIO-PULMONARY: No racing of her heart chest pain cough shortness of breath HEMOTOLOGICAL: No bruising or external bleeding GASTROINTESTINAL: + abdominal pain, poor appetite, no nausea vomiting GENITAL URINARY: No urinary symptoms. MUSCULOSKELETAL/ RHEUMATOLOGICAL: The patient denies any neck or back pain. She only reports left hip pain which is not new from her fall; right foot weakness, right arm paralysis (both from stroke) DERMATOLOGICAL: No skin rash hives bruising or itching Thirteen system review is otherwise negative other than as mentioned below and in HPI. PE: GENERAL: Alert, comfortable, cooperative. Appears fatigued. Answers questions promptly and appropriately. Vital signs noted. HENT: Normocephalic, atraumatic. Hearing intact. Oral mucosa is pink and moist. EYES: Conjunctiva pink, sclera white, no periorbital swelling. CARDIOVASCULAR: Regular rate. No pedal edema. RESPIRATORY: Non-tachypneic, breathing comfortably on room air. GASTROINTESTINAL: Abdomen soft and non-distended, mild TTP in RUQ MUSCULOSKELETAL: No bone or joint tenderness SKIN: Warm, dry, soft, appropriate color for ethnicity. No other lesions, rashes, or wounds. NEURO: Alert and Oriented X 3. +right facial droop; right arm paralysis; right foot weakness; left arm and leg strength ROM intact PSYCH: Appropriate mood and affect, normal intellect Meds Home Medications and Allergies Home Medications Medication Instructions Recorded Confirmed Type LISINOPRIL (Zestril / Prinivil) 10 mg PO Q DAY #0 09/02/07 03/27/20 History POLYETHYLENE GLYCOL 3350 17 gm PO PRN PRN #0 09/20/16 03/27/20 History amlodipine [Norvasc] 10 mg PO QDAY #0 09/20/16 03/27/20 History metoprolol tartrate 12.5 mg PO BID #0 09/20/16 03/27/20 History hydrocodone-acetaminophen 1 tab PO Q4HR PRN #30 tab 03/26/20 03/27/20 Rx apixaban [Eliquis] 2.5 mg PO BID 03/27/20 03/27/20 History Allergies Allergy/AdvReac Type Severity Reaction Status Date / Time atenolol [ATENOLOL] Allergy Severe RESP Verified 09/26/19 11:01 DISTRESS Pinwttf-Qor-Pea Reductase Allergy Severe RESP Verified 09/26/19 11:01 Inhibitor DISTRESS [[id number] REDUCTASE INHIBITOR] levofloxacin [From LEVAQUIN] Allergy Intermediate swollen Verified 09/26/19 11:01 tongue sertraline [From ZOLOFT] Allergy Mild UNSURE Verified 09/26/19 11:01 Iodine and Iodide Containing Allergy Verified 09/26/19 11:01 Produc Exam Vital Signs (past 8 hours): - 03/30/20 09:05 03/30/20 11:10 Temperature 97.6 F Pulse Rate 70 Respiratory Rate 16 Blood Pressure 130/76 118/59 L Pulse Oximetry 94 Oxygen Delivery Method Nasal Cannula Oxygen Flow Rate [address] scan - abdomen: Radiologist's impression: [address] [address] [address] Scan Report Addendum Patient: Natasha Manzo [facility]#: [id number] : 5Acct:[id number] Age/Sex: 84 / FDate of Service: 03/30/20 Loc: BE270-4 Accession Number: [id number] Procedure: CT abdomen pelvis wo con Ordering Provider: Akiko Temple MD ADDENDUM This report includes an Addendum and supersedes previous reports for this exam. This report includes an Addendum and supersedes previous reports for this exam. PROCEDURE: CT ABDOMEN PELVIS WO CON INDICATIONS: hemorrhagic hepatic cyst TECHNIQUE: Noncontrast 5 mm thick sections acquired from the diaphragms to the symphysis. 5 mm coronal and sagittal reformats were then performed. For radiation dose reduction, the following was used: automated exposure control, adjustment of mA and/or kV according to patient size. COMPARISON: Outside Film, CT, CT ANGIO CHEST ABDOMEN PELVIS, 04/02/2019, 14:39. [facility], CT, CT ANGIO CHEST ABDOMEN PELVIS, 10/04/2019, 12:38. [facility], CT, CT CHEST ABD PEL W CON, 03/24/2020, 19:24. FINDINGS: Image quality: There is metallic streak artifact from patient's right hip prosthesis. There is mild motion artifact also noted. ABDOMEN: Lung bases: There is a new small right pleural effusion with associated compressive atelectasis and consolidation in the right lower lobe. Mild dependent atelectasis is also noted in the left lower lobe. Within the right middle lobe, there is a small 3 mm pulmonary nodule on series 3 image 4 which appears similar compared to prior studies. Heart size is enlarged. Solid organs: A large cyst is redemonstrated posteriorly in the right hepatic lobe, measuring up to 2.5 x 4.9 cm. There is an internal hyperdense component measuring up to 4.5 cm redemonstrated without change in attenuation values compared to the prior contrast enhanced study. The findings are consistent with residual blood product from prior hemorrhage. An adjacent cystic area of hyperattenuation within segment 7 of the right hepatic lobe likely represents an associated small laceration. Characterization is limited on the current study in the absence of intravenous contrast. In segment 8 of the right hepatic lobe, a small cyst is redemonstrated measuring up to 1.3 cm. Marked distention of the gallbladder is demonstrated, increased from the prior study, without associated wall thickening or calcified gallstones. Prominent intra-axial hepatic biliary ductal dilatation is also again noted, with the common bile duct measuring up to approximately 1.1 cm. Pancreas is mildly atrophic in size without peripancreatic fat stranding or fluid collections. Spleen is normal in size. No adrenal nodules. Kidneys demonstrate no hydronephrosis. There is progressive decrease in size of a left perinephric hematoma collection which now measures up to 6.9 x 5.5 cm in transverse dimension with increased wall thickening and dependent clot. Curvilinear high density is redemonstrated within the anterior left kidney which may represent embolization material. Peritoneum and bowel: Unenhanced bowel loops demonstrate normal wall thickness and caliber. There is colonic diverticulosis without acute diverticulitis. No free fluid or air. Nodes and vessels: No retroperitoneal or mesenteric adenopathy by size criteria. There is an abdominal aortic aneurysm status post endovascular stent graft repair redemonstrated. Associated vascular stents are redemonstrated at the origins of the celiac, superior mesenteric, and renal arteries. There is progressive slight decrease in size of the aneurysm sac, now measuring up to 5.3 cm in anteroposterior dimension. Miscellaneous: No ventral hernias. PELVIS: Genitourinary: Bladder wall thickness is normal. Miscellaneous: No inguinal hernias or adenopathy. Bones: A right hip prosthesis is redemonstrated with associated toxic artifact slightly limiting evaluation. No suspicious bony lesions. A mild inferior endplate compression deformity is redemonstrated in the T12 vertebral body. IMPRESSION: 1. Loculated high density blood product redemonstrated within a large right hepatic cyst consistent with sequela of prior hemorrhage into the cyst. A possible associated small hepatic laceration is noted in segment 7, with evaluation limited on the current study in the absence of intravenous contrast. 2. Progressive decrease in size and evolution of a left perinephric hematoma. 3. Increased distention of the gallbladder without associated wall thickening or calcified gallstones. Persistent biliary ductal dilatation also demonstrated. The findings are nonspecific and may reflect sequelae of biliary obstruction due to a noncalcified gallstone or nonvisualized mass lesion. Recommend correlation clinically and consider initial further evaluation with an ultrasound. 4. New small right pleural effusion with associated right lower lobe compressive atelectasis and consolidation. Dictated by: Pedro Fong M.D. on 03/30/2020 at 10:00 Approved by: Pedro Fong M.D. on 03/30/2020 at 10:38 ADDENDUM: There are mildly enlarged periaortic retroperitoneal lymph nodes which appear slightly increased in size compared to the prior studies. A patient account representative node on series 2 image 39 measures up to 1.3 cm in short axis compared to 1.1 cm previously. The findings are nonspecific and may be reactive. Recommend attention on followup. Dictated by: Pedro Fong M.D. on 03/30/2020 at 10:44 Approved by: Pedro Fong M.D. on 03/30/2020 at 10:46 ADDENDUM: Of note, there is interval development/increase in perihepatic fluid which could be blood related to described a small liver laceration above in segment 7, versus reactive to progressive acute cholecystitis. Please correlate clinically and with laboratory data. Findings were personally discussed with Dr. Temple by telephone 1350 hours 03/30/20 Dictated by: Wes Tucker M.D. on 03/30/2020 at 13:52 Approved by: Wes Tucker M.D. on 03/30/2020 at 13:54 Addendum Dictated By:Wes Tucker MD Addendum Signed By: Addendum Cosigned By: DD/ /18/1353 TD/TT: 03/30/2011/18/1353 PROCEDURE: CT ABDOMEN PELVIS WO CON INDICATIONS: hemorrhagic hepatic cyst TECHNIQUE: Noncontrast 5 mm thick sections acquired from the diaphragms to the symphysis. 5 mm coronal and sagittal reformats were then performed. For radiation dose reduction, the following was used: automated exposure control, adjustment of mA and/or kV according to patient size. COMPARISON: Outside Film, CT, CT ANGIO CHEST ABDOMEN PELVIS, 04/02/2019, 14:39. [facility], CT, CT ANGIO CHEST ABDOMEN PELVIS, 10/04/2019, 12:38. [facility], CT, CT CHEST ABD PEL W CON, 03/24/2020, 19:24. FINDINGS: Image quality: There is metallic streak artifact from patient's right hip prosthesis. There is mild motion artifact also noted. ABDOMEN: Lung bases: There is a new small right pleural effusion with associated compressive atelectasis and consolidation in the right lower lobe. Mild dependent atelectasis is also noted in the left lower lobe. Within the right middle lobe, there is a small 3 mm pulmonary nodule on series 3 image 4 which appears similar compared to prior studies. Heart size is enlarged. Solid organs: A large cyst is redemonstrated posteriorly in the right hepatic lobe, measuring up to 2.5 x 4.9 cm. There is an internal hyperdense component measuring up to 4.5 cm redemonstrated without change in attenuation values compared to the prior contrast enhanced study. The findings are consistent with residual blood product from prior hemorrhage. An adjacent cystic area of hyperattenuation within segment 7 of the right hepatic lobe likely represents an associated small laceration. Characterization is limited on the current study in the absence of intravenous contrast. In segment 8 of the right hepatic lobe, a small cyst is redemonstrated measuring up to 1.3 cm. Marked distention of the gallbladder is demonstrated, increased from the prior study, without associated wall thickening or calcified gallstones. Prominent intra-axial hepatic biliary ductal dilatation is also again noted, with the common bile duct measuring up to approximately 1.1 cm. Pancreas is mildly atrophic in size without peripancreatic fat stranding or fluid collections. Spleen is normal in size. No adrenal nodules. Kidneys demonstrate no hydronephrosis. There is progressive decrease in size of a left perinephric hematoma collection which now measures up to 6.9 x 5.5 cm in transverse dimension with increased wall thickening and dependent clot. Curvilinear high density is redemonstrated within the anterior left kidney which may represent embolization material. Peritoneum and bowel: Unenhanced bowel loops demonstrate normal wall thickness and caliber. There is colonic diverticulosis without acute diverticulitis. No free fluid or air. Nodes and vessels: No retroperitoneal or mesenteric adenopathy by size criteria. There is an abdominal aortic aneurysm status post endovascular stent graft repair redemonstrated. Associated vascular stents are redemonstrated at the origins of the celiac, superior mesenteric, and renal arteries. There is progressive slight decrease in size of the aneurysm sac, now measuring up to 5.3 cm in anteroposterior dimension. Miscellaneous: No ventral hernias. PELVIS: Genitourinary: Bladder wall thickness is normal. Miscellaneous: No inguinal hernias or adenopathy. Bones: A right hip prosthesis is redemonstrated with associated toxic artifact slightly limiting evaluation. No suspicious bony lesions. A mild inferior endplate compression deformity is redemonstrated in the T12 vertebral body. IMPRESSION: 1. Loculated high density blood product redemonstrated within a large right hepatic cyst consistent with sequela of prior hemorrhage into the cyst. A possible associated small hepatic laceration is noted in segment 7, with evaluation limited on the current study in the absence of intravenous contrast. 2. Progressive decrease in size and evolution of a left perinephric hematoma. 3. Increased distention of the gallbladder without associated wall thickening or calcified gallstones. Persistent biliary ductal dilatation also demonstrated. The findings are nonspecific and may reflect sequelae of biliary obstruction due to a noncalcified gallstone or nonvisualized mass lesion. Recommend correlation clinically and consider initial further evaluation with an ultrasound. 4. New small right pleural effusion with associated right lower lobe compressive atelectasis and consolidation. Dictated by: Pedro Fong M.D. on 03/30/2020 at 10:00 Approved by: Pedro Fong M.D. on 03/30/2020 at 10:38 Labs Result Diagrams: 03/30/20 05:02 03/30/20 05:02 Labs: Laboratory Results - last 24 hr 03/29/20 03/30/20 03/30/20 15:21 05:02 05:02 WBC 7.6 RBC 3.37 L Hgb 10.7 L Hct 31.3 L MCV 92.9 MCH 31.7 MCHC 34.1 RDW 13.6 Plt Count 136 L Neut % (Auto) 75.1 H Lymph % (Auto) 6.5 L [place] % (Auto) 14.9 H Eos % (Auto) 3.3 Baso % (Auto) 0.2 Neut # (Auto) 5700 Lymph # (Auto) 500 L [place] # (Auto) 1100 H Eos # (Auto) 300 Baso # (Auto) 0 Sodium 131 L Potassium 3.7 Chloride 102 Carbon Dioxide 26 BUN 35 H Creatinine 0.74 Estimated GFR > 60.0 BUN/Creatinine Ratio 47.3 H Glucose 104 Calcium 8.2 L Total Bilirubin 0.8 AST 677 H ALT 586 H Alkaline Phosphatase 134 H Total Protein 5.4 L Albumin 2.5 L Globulin 2.9 Albumin/Globulin Ratio 0.9 L COVID-19 PCR Negative Assessment & Plan Assessment and plan (1) Stroke: Qualifiers: CVA mechanism: unspecified Qualified Code(s): I63.9 - Cerebral infarction, unspecified Status: Acute (2) Paroxysmal atrial fibrillation: Status: Acute (3) H/O: stroke with residual effects: Problem details: 02/20/2020, post TPA. Right side weakness admitted to [facility] Status: Acute (4) Anticoagulated by anticoagulation treatment: Status: Acute (5) Liver hematoma: Status: Acute (6) Fracture of rib of right side: Qualifiers: Encounter type: initial encounter Fracture type: closed Rib fracture type: single rib Qualified Code(s): S22.31XA - Fracture of one rib, right side, initial encounter for closed fracture Status: Acute (7) Transaminitis: Status: Acute (8) Elevated alkaline phosphatase level: Status: Acute (9) Anemia: Status: Acute Assessment & Plan narrative: This is an 84-year-old woman with unexplained transaminitis and right upper quadrant pain. She does have a distended gallbladder on her CT scan, and no obvious progression of her liver hematoma. I think would be worthwhile to rule out cholecystitis with a HIDA scan. I would also recheck her CBC and LFTs. I would consider holding her Eliquis for now, as it may be contributing to her anemia, and if she needs a procedure such as a cutaneous cholecystostomy tube being off of the Eliquis would make it a safer procedure. Recommendations: HIDA scan Recheck CBC and CMP in a.m. Hold Eliquis if possible COVID-19 COVID-19 status: Negative Result date/Date tested (Pos, Neg/Pending): 03/29/20 Time Spent With Patient Time with patient: Greater than 35 minutes
--- NOTE | 2020-03-30 17:04 | PC.NURSE ---
Notified Dr. Calle that DI will not be able to complete Hida scan until Friday.
--- NOTE | 2020-03-30 18:27 | OT.IP.TRT ---
Current Diagnoses Anemia, unspecified (03/27/20) Paroxysmal atrial fibrillation (03/27/20) Cerebral infarction, unspecified (03/27/20) Unspecified sequelae of cerebral infarction (03/27/20) Nonspecific elevation of levels of transaminase and lactic acid dehydrogenase [LDH] (03/27/20) Abnormal levels of other serum enzymes (03/27/20) Fracture of one rib, right side, initial encounter for closed fracture (03/27/20) Contusion of liver, initial encounter (03/27/20) terminal clerk (current) use of anticoagulants (03/27/20) Occupational Therapy Treatment Note M2 OT-IP Current Condition Start: 03/28/20 12:45 Freq: Status: Active Protocol: Document 03/29/20 13:36 [facility] (Rec: 03/29/20 13:59 [facility] [id number]) Occupational Therapy Current Condition Current Condition Treatment Diagnosis Subacute CVA, decreased mobility and ADl needs. M3 OT- IP Subjective and Pain Start: 03/28/20 12:45 Freq: Status: Active Protocol: Document 03/30/20 18:19 [facility] (Rec: 03/30/20 18:26 [facility] [id number]) OT- Subjective Occupational Therapy Visit Type Type Treatment Note Visit Start Time 16:24 Visit Stop Time 16:33 Total Visit Minutes 9 Occupational Therapy Visit Comments Patient Comments Pt not wanting to get up at this time. Pt and talking about wanting for pt to go home instead of rehab now. Patient/Caregiver Goals To go home OT Pain Assessment Pain When Pain Assessed During Mobility Pain Present Pain Present Pain Reported M4 OT- IP ADL's Start: 03/28/20 12:45 Freq: Status: Active Protocol: Document 03/30/20 18:19 [facility] (Rec: 03/30/20 18:26 [facility] [id number]) OT [id number] Comments OT Self-Feeding Comments Educated to if going home pt will need 1:1 assist for self feeding as pockets and needs constant cueing to swallow as at often has poor initiation for swallowing. In addition would be beneficial to have a mirror in front of her so that she can be more aware to clear her mouth. Also would be best for her to have a good place to be able to sit upright at 90 degrees while eating. OT ADL-Toileting Comments OT Toileting Comments Pt's states that they have a BSC that can be placed next to the bed. M5 OT- IP IADL's Start: 03/28/20 12:45 Freq: Status: Active Protocol: Document 03/28/20 10:37 [facility] (Rec: 03/28/20 13:12 [facility] [id number]) OT-Instrumental Activities of Daily Living Deficits IADL Deficits Identified Deficits Home Safety Awareness Ability to Problem Solve Emergency Unable to Problem Solve Situations Medication Management Medication Management Caregiver Administers Money Management Money Management Caregiver Provides Assistance Meal Preparation Meal Preparation Caregiver Provides Assist Technical Services Coordinator Technical Services Coordinator Caregiver Provides Assist Driving Driving Caregiver Provides Assist OT- Balance Assessment Sitting Balance and Reactions Static Sitting Balance Ability Good Dynamic Sitting Balance Ability Fair Standing Balance and Reactions Static Standing Balance Ability Poor Dynamic Standing Balance Ability Poor M8 OT- IP Objective Assessments Start: 03/28/20 12:45 Freq: Status: Active Protocol: Document 03/29/20 13:36 [facility] (Rec: 03/29/20 13:59 [facility] [id number]) OT Strength Comments Strength Comments RUE 3-/5 shoulder, elbow 3/5, hand 3-/5 M9 OT- IP Assessment and Plan Start: 03/28/20 12:45 Freq: Status: Active Protocol: Document 03/30/20 18:19 [facility] (Rec: 03/30/20 18:26 [facility] [id number]) OT Summary Assessment and Plan Potential Rehabilitation Potential Fair Analytic Complexity at Evaluation Low Summary OT Impairments Range of Motion,Strength, Balance,Coordination,Sensation ,Tone,Functional Cognition, Functional Mobility,Self- Feeding,Grooming,Dressing, Toileting,Bathing,Toilet Transfers,Shower Transfers, Activity Tolerance Progress Towards Goals Slow Progress due to Pain,Slow Progress due to Medical Issues,Slow Progress due to Activity Tolerance,Slow Progress due to Cognition Assessment Summary Pt and now deciding it would be best for pt to go home and have home health instead. Educated to pt and , therapy will have to do caregiver training to ensure that pt's able to provide enough assist and most likely will need to have a second person to assist especially for dressing, toileting, and bathing needs. OT informed case management of pt's and 's request to go home versus acute rehab. Goals Self-Feeding Goal Standby Assistance,Adapted Utensil Grooming Goal Standby Assistance Dressing Goal Minimal Assistance Toileting Goal Standby Assistance Bathing Goal Minimal Assistance Toilet Transfer Goal Standby Assistance Shower Transfer Goal Contact Guard Assistance Patient/Caregiver Education Goal Caregiver Independent Assisting Patient Days to Meet Goals 15 Frequency of Treatment Frequency Of Treatment Once a Day Treatment Plan OT Treatment Plan ADL Training,Functional Cognition Training,Functional Mobility,Patient/Family Education,Discharge Planning Other Treatment Recommendations and Next Caregiver training and Treatment Focus education of equipment needs . Discharge Recommendations OT Discharge Recommendations Home with 24/7 Assist,Home Health,SNF Rehab,Acute Rehab Transportation Needs at Discharge Wheelchair/Cabulance
--- NOTE | 2020-03-30 18:58 | PC.NURSE ---
Assumed care of Pt @ 1500. NIH 8. Slur to speech, slight. Very mild facial droop and drift from R side. IVF infusing. Hida scan cannot be done until Friday PM, notified coordinator and Sx non destructive evaluation manager updated. Pain controlled from offfgoing RN's medicating.
--- NOTE | 2020-03-30 19:53 | PM.PN.1 ---
Subjective Subjective Date Patient Seen: 03/30/20 Time Patient Seen: 08:00 Interval history: Patient seen multiple times today and a total of 75 minutes was spent with patient today in counseling and coordination care. Was in the process to transfer her to inpatient rehab facility but then received results for her abdominal CT with question of inflammation around her liver and possible liver laceration. 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 Based on this and patient's market increase in elevated liver function tests as well as her pain in her right upper quadrant it was felt that she was not stable for transfer or for discharge. Dr. Wylie was consulted to assess for possible new onset cholecystitis. Patient had improved urine output with IV fluids as well as improved blood pressures. She complained of right upper quadrant pain but did not receive any pain medications over the 12 hours prior to the initial time I saw her today. She denies any chest pain. She denies any shortness of breath. She has poor p.o. intake. Review of systems is otherwise unremarkable Exam Vital Signs (past 8 hours): - 03/30/20 15:20 03/30/20 19:28 Temperature 97.2 F L 99.4 F Pulse Rate 126 H 100 H Respiratory Rate 17 16 Blood Pressure 117/62 133/55 L Pulse Oximetry 92 95 Oxygen Delivery Method Nasal Cannula Oxygen Flow Rate 0 Narrative Exam Narrative: Patient is alert and oriented x3. She answers questions appropriately. I met with her several times today both with her and then with her alone this evening. She last received hydrocodone approximately 1:00 p.m. and was having significant plain pain and was just given another 1 at 7:30 a.m.. She has had good urine output HEENT is remarkable for right facial droop which is unchanged. She has no mucosal lesions. She does look to be getting a little swelling in her eyelids. Neck is supple Chest: Clear to auscultation without wheezes rhonchi or crackles Cor: Regular rate and rhythm without any murmur, but distant S1-S2 telemetry showed normal sinus rhythm overnight Abdomen: Positive bowel sounds, soft, tender right upper quadrant were previously had been over her ribcage where she has a fracture it now is in the right upper quadrant. Extremities no edema pulses intact Persistent right upper extremity and lower extremity decreased motor strength really 2 to 3/5. She is improved from her original presentation. Objective Labs Result Diagrams: 03/30/20 05:02 03/30/20 05:02 Labs: Laboratory Results - last 24 hr 03/30/20 03/30/20 05:02 05:02 WBC 7.6 RBC 3.37 L Hgb 10.7 L Hct 31.3 L MCV 92.9 MCH 31.7 MCHC 34.1 RDW 13.6 Plt Count 136 L Neut % (Auto) 75.1 H Lymph % (Auto) 6.5 L [place] % (Auto) 14.9 H Eos % (Auto) 3.3 Baso % (Auto) 0.2 Neut # (Auto) 5700 Lymph # (Auto) 500 L [place] # (Auto) 1100 H Eos # (Auto) 300 Baso # (Auto) 0 Sodium 131 L Potassium 3.7 Chloride 102 Carbon Dioxide 26 BUN 35 H Creatinine 0.74 Estimated GFR > 60.0 BUN/Creatinine Ratio 47.3 H Glucose 104 Calcium 8.2 L Total Bilirubin 0.8 AST 677 H ALT 586 H Alkaline Phosphatase 134 H Total Protein 5.4 L Albumin 2.5 L Globulin 2.9 Albumin/Globulin Ratio 0.9 L Assessment & Plan Assessment & Plan narrative: 84-year-old female admitted for recrudescence of previous MCA distribution CVA secondary to new onset P AFib Assessment 1. Right upper quadrant abdominal pain with elevated liver function tests and question of laceration liver. Appreciate Dr. Wylie is a consult. She does not feel that this is a liver laceration. She is concerned about possible bleeding verses cholecystitis. We will get a HIDA scan. Will recheck labs in a.m.. She is not stable for transfer due to this finding. We will stop the Eliquis due to concern for bleeding. We will continue the IV ceftriaxone which she is on for her suspected UTI. Assessment 2. Possible UTI. White count has come down. We will continue IV ceftriaxone until discharge and then with discharge on Keflex. Assessment 3. Recent MCA CVA with right-sided defect persistent. Again reviewed MRI MRA with patient and her . Suspect that this was recrudescence and not a new stroke. We restarted the Eliquis but now with the possible bleeding in her liver we have to stop this. We will continue to monitor closely. She will need inpatient rehabilitation upon discharge when she is medically stable. We will continue to monitor blood pressure. Her blood pressures have decreased I think due to possible poor p.o. intake and intravascular volume depletion. This is improving. We will continue metoprolol twice a day and lisinopril. We will hold amlodipine for now monitor blood pressure. She is unable to take statins. H&H has been stable though trending down but I suspect that this is in part delusional. Assessment number for right rib fracture with pneumothorax now with what looks like a pleural effusion without any respiratory compromise Plan: Will decrease IV fluids. Will continue to monitor respiratory status and for evidence of infection. She is high risk for pneumonia will continue to treat pain. Will watch carefully to not over sedate her. Assessment 5. Hypertension with episode of hypotension wound which I think is probably related to volume status. We will continue lisinopril metoprolol on hold amlodipine. We will decrease her IV fluids as she is showing improved urine output as well as blood pressures. We will continue to monitor closely. Assessment 6. Type 2 diabetes, diet controlled, no current issues Plan will follow Assessment 7. 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 No current issues Assessment 8. Severe acute on chronic protein calorie malnutrition Plan: Will continue with efforts at increasing intake continue with current diet recommendations Code status is DNI
--- NOTE | 2020-03-30 20:14 | P.PN_ITS ---
Subjective Subjective Date Patient Seen: 03/30/20 Time Patient Seen: 20:14 Exam Vital Signs (past 8 hours): - 03/30/20 15:20 03/30/20 19:28 Temperature 97.2 F L 99.4 F Pulse Rate 126 H 100 H Respiratory Rate 17 16 Blood Pressure 117/62 133/55 L Pulse Oximetry 92 95 Oxygen Delivery Method Nasal Cannula Oxygen Flow Rate 0 Objective Labs Result Diagrams: 03/30/20 05:02 03/30/20 05:02 Labs: Laboratory Results - last 24 hr 03/30/20 03/30/20 05:02 05:02 WBC 7.6 RBC 3.37 L Hgb 10.7 L Hct 31.3 L MCV 92.9 MCH 31.7 MCHC 34.1 RDW 13.6 Plt Count 136 L Neut % (Auto) 75.1 H Lymph % (Auto) 6.5 L [place] % (Auto) 14.9 H Eos % (Auto) 3.3 Baso % (Auto) 0.2 Neut # (Auto) 5700 Lymph # (Auto) 500 L [place] # (Auto) 1100 H Eos # (Auto) 300 Baso # (Auto) 0 Sodium 131 L Potassium 3.7 Chloride 102 Carbon Dioxide 26 BUN 35 H Creatinine 0.74 Estimated GFR > 60.0 BUN/Creatinine Ratio 47.3 H Glucose 104 Calcium 8.2 L Total Bilirubin 0.8 AST 677 H ALT 586 H Alkaline Phosphatase 134 H Total Protein 5.4 L Albumin 2.5 L Globulin 2.9 Albumin/Globulin Ratio 0.9 L Assessment & Plan Assessment & Plan narrative: Discussed with patient's regarding course right now. He states that he had a talk with all of her children and the patient herself and the patient is tired and she will eat and she just wants to go home. They now are considering just sending her home with hospice. They of all talked and this is what they want to do as well as what the patient's wishes are. We will talk with social services analyst and Dr. Wylie and will see if we can get this arranged.
[2020-03-31] MEDS: OXYCODONE IR 5 MG TABLET PO ×2 (00:12→04:27)
[2020-03-31] MEDS: SODIUM CHLORIDE 0.9% 1,000 ML 75 ML IV (00:14)
[2020-03-31 00:20] VITALS: BP 114/71; PULSE 134; RESP 18; TEMP 36.8; O2SAT 91
[2020-03-31] MEDS: METOPROLOL TARTRATE 5 MG/5 ML INJ IV (04:25)
[2020-03-31 04:29] VITALS: BP 106/59; PULSE 130
[2020-03-31 04:41] VITALS: PULSE 89
--- NOTE | 2020-03-31 04:53 | PC.NURSE ---
Pt HR in the 130s. Started on tele per Ronnell FONG. HR running 120-130s Afib RVR. Gave 5mg iv metoprolol and HR now running in the 80-100s. Pt resting in bed. WCTM
[2020-03-31 05:10] VITALS: BP 102/43; PULSE 101; RESP 16; TEMP 36.5; O2SAT 96
[2020-03-31 05:15] LABS: Alanine Aminotransferase 313 IU/L (<35); Albumin 2.3 g/dL (3.5-5.0); Albumin Globulin Ratio 0.8 (1.0-2.8); Alkaline Phosphatase 112 U/L (38-126); Aspartate Aminotransferase 136 IU/L (14-36); BUN Creatinine Ratio 37.9 (6-22); Bilirubin Total 0.7 mg/dL (0.2-1.3); Blood Urea Nitrogen 22 mg/dL (7-17); Calcium 8.1 mg/dL (8.4-10.2); Carbon Dioxide 25 mmol/L (22-32); Chloride 106 mmol/L (98-107); Estimated Glomerular Filt Rate > 60.0 mL/min (>60); Globulin 2.9 g/dL (1.7-4.1); Glucose 108 mg/dL (80-110); HEMOLYSIS < 15 (0-50); Potassium 3.5 mmol/L (3.4-5.1); Sodium 135 mmol/L (137-145); Total Protein 5.2 g/dL (6.3-8.2)
[2020-03-31 05:19] LABS: Add Manual Diff / Slide Review NO; Basophils Absolute Auto 0 /uL (0-100); Basophils Percent Auto 0.2 % (0-2); Eosinophils Absolute Auto 0 /uL (0-450); Eosinophils Percent Auto 0.4 % (2-4); Hematocrit 29.1 % (36-46); Hemoglobin 10.1 g/dL (12.0-16.0); Lymphocytes Absolute Auto 500 /uL (1100-4500); Lymphocytes Percent Auto 5.7 % (25-40); Mean Corpuscular HGB Conc 34.8 % (30-36); Mean Corpuscular Hemoglobin 32.5 PG (26-34); Mean Corpuscular Volume 93.3 fL (80-100); Monocytes Absolute Auto 1100 /uL (0-900); Monocytes Percent Auto 12.7 % (3-14); Neutrophils Absolute Auto 6900 /uL (1500-7000); Platelet Count 146 X10^3/uL (150-400); Red Blood Cell Count 3.12 X10^6/uL (4.0-5.2); Red Cell Distribution Width 13.7 % (11.6-14.8); White Blood Cell Count 8.6 X10^3/uL (4.5-11.0)
[2020-03-31 06:56] LABS: Magnesium 1.9 mg/dL (1.6-2.3)
[2020-03-31 08:00] VITALS: BP 125/82; PULSE 124; RESP 22; TEMP 36.3; O2SAT 93
[2020-03-31] MEDS: POTASSIUM CHLORIDE 40 MEQ in SODIUM CHLORIDE 0.9% 500 ML 130 ML IV (08:45)
[2020-03-31] MEDS: polyethylene glycoL 3350 17 GM POWD.PACK PO (08:45)
[2020-03-31] MEDS: lisinopriL 10 MG TABLET PO (08:45)
[2020-03-31] MEDS: METOPROLOL IR 25 MG TABLET PO (08:45)
--- NOTE | 2020-03-31 09:06 | OT.IP.TRT ---
Current Diagnoses Anemia, unspecified (03/27/20) Paroxysmal atrial fibrillation (03/27/20) Cerebral infarction, unspecified (03/27/20) Unspecified sequelae of cerebral infarction (03/27/20) Nonspecific elevation of levels of transaminase and lactic acid dehydrogenase [LDH] (03/27/20) Abnormal levels of other serum enzymes (03/27/20) Fracture of one rib, right side, initial encounter for closed fracture (03/27/20) Contusion of liver, initial encounter (03/27/20) truck terminal manager (current) use of anticoagulants (03/27/20) Occupational Therapy Treatment Note M2 OT-IP Current Condition Start: 03/28/20 12:45 Freq: Status: Active Protocol: Document 03/29/20 13:36 [facility] (Rec: 03/29/20 13:59 [facility] [id number]) Occupational Therapy Current Condition Current Condition Treatment Diagnosis Subacute CVA, decreased mobilty and ADl needs. M3 OT- IP Subjective and Pain Start: 03/28/20 12:45 Freq: Status: Active Protocol: Document 03/31/20 09:45 [facility] (Rec: 03/31/20 09:56 [facility] [id number]) OT- Subjective Occupational Therapy Visit Type Type Progress Note Visit Start Time 08:36 Visit Stop Time 09:06 Total Visit Minutes 30 Notes Pt's present for family training OT Pain Assessment Pain When Pain Assessed During Mobility Pain Present Pain Present Pain Reported Location Right Abdomen Scale Used unable to rate but states back and abdomen pain Management Techniques Modification of Treatment,Re- positioning M4 OT- IP ADL's Start: 03/28/20 12:45 Freq: Status: Active Protocol: Document 03/31/20 09:45 [facility] (Rec: 03/31/20 09:56 [facility] [id number]) OT [id number] Comments OT Self-Feeding Comments Pt's attempting to assist pt with feeding but pt is not interested. OT ADL-Grooming Comments OT Grooming Comments not performed in this session. OT ADL-Oral Care Comments Oral Care Comments not performed in this session. OT ADL-Dressing Comments OT Dressing Comments not performed in this session. OT ADL-Toileting General Evaluation Toileting Ability Minimal Assistance Areas Needing Assistance Manage Clothing,Perform Perineal Hygiene Devices Toileting Assistive Devices Commode Comments OT Toileting Comments pt transfered to [facility] with CGA from this sign writer letterer or painter and pt's performing a stand pivot from chair to toilet. Pt was able to perform pericare with set up and assit with clothing. OT ADL-Bathing Comments OT Bathing Comments Not performed in this session. M5 OT- IP IADL's Start: 03/28/20 12:45 Freq: Status: Active Protocol: Document 03/28/20 10:37 [facility] (Rec: 03/28/20 13:12 [facility] [id number]) OT-Instrumental Activities of Daily Living Deficits IADL Deficits Identified Deficits Home Safety Awareness Ability to Problem Solve Emergency Unable to Problem Solve Situations Medication Management Medication Management Caregiver Administers Money Management Money Management Caregiver Provides Assistance Meal Preparation Meal Preparation Caregiver Provides Assist Skin Pass Operator Skin Pass Operator Caregiver Provides Assist Driving Driving Caregiver Provides Assist M6 OT- IP Functional Cognition Start: 03/28/20 12:45 Freq: Status: Active Protocol: Document 03/29/20 13:36 [facility] (Rec: 03/29/20 13:59 [facility] [id number]) Cognitive Factors Limiting Selfcare Function Cognitive Ability Level of Alertness Alert,Drowsy Patient Orientation Name,Year,Situation Attention Span Ability Capable of Focused Attention, Unable to Sustain Attention Ability to Follow Commands Able to Follow One Step Commands Memory Description Short Term Impaired Problem Solving Ability Needs Assist to Identify Solutions Cognitive Comments Cognitive Assessment Comments Pt still having right neglect but better able to problem solve through sequence of grooming and eating needs today. Pt still at times slow to initate and trouble getting the words out. M7 OT- IP Mobility and Balance Start: 03/28/20 12:45 Freq: Status: Active Protocol: Document 03/31/20 09:45 [facility] (Rec: 03/31/20 09:56 [facility] [email or web address]) OT- Bed Mobility Assessment Rolling Type of Rolling Roll to Left Level of Assistance Moderate Assistance,Head of Bed Elevated Supine to Sit Supine to Sit Assist Moderate Assistance,Head of Bed Elevated Scooting Scooting to Edge of Bed Moderate Assistance,Head of Bed Elevated OT-Transfer Assessment Sit to and From Stand Sit to and from Stand Minimal Assistance Transfers Transfer Ability Minimal Assistance,Moderate Assistance,1 Person Assistance Technique Transfer Destination Bed,Chair,Toilet Transfer Technique Stand Step Pivot Devices Transfer Assistive Devices Gait Belt,[place] Walker Comments Mobility Comments Pt performed bed mobility with mod a and HOB up. Pt's states that they have an adjustable bed at home. Pt' s educated on the importance of not pulling on pt's R arm for transfers. Pt was able to then transfer to the chair using the hemiwalker but performed better with stand pivot transfer from the chair to the [facility] and back with the assisting without the [place] walker. Pt and educated on the benefit of having a draw sheet to assist in positioning pt. OT- Gait Assessment Comments Gait Ability Comments Not performed OT- Balance Assessment Sitting Balance and Reactions Static Sitting Balance Ability Fair Dynamic Sitting Balance Ability Poor M8 OT- IP Objective Assessments Start: 03/28/20 12:45 Freq: Status: Active Protocol: Document 03/29/20 13:36 [facility] (Rec: 03/29/20 13:59 [facility] [email or web address]) OT Strength Comments Strength Comments RUE 3-/5 shoulder, elbow 3/5, hand 3-/5 M9 OT- IP Assessment and Plan Start: 03/28/20 12:45 Freq: Status: Active Protocol: Document 03/31/20 09:45 [facility] (Rec: 03/31/20 09:56 [facility] [email or web address]) OT Summary Assessment and Plan Potential Rehabilitation Potential Fair Analytic Complexity at Evaluation Low Summary OT Impairments Range of Motion,Strength, Balance,Coordination,Sensation ,Tone,Functional Cognition, Functional Mobility,Self- Feeding,Grooming,Dressing, Toileting,Bathing,Toilet Transfers,Shower Transfers, Activity Tolerance Progress Towards Goals Slow Progress due to Pain,Slow Progress due to Medical Issues,Slow Progress due to Activity Tolerance,Slow Progress due to Cognition Assessment Summary Pt is planned for discharge home with family assist and hospice. Family training with transfers performed with and would benefit from second session with P.T. for increased safety. Goals Self-Feeding Goal Standby Assistance,Adapted Utensil Grooming Goal Standby Assistance Dressing Goal Minimal Assistance Toileting Goal Standby Assistance Bathing Goal Minimal Assistance Toilet Transfer Goal Standby Assistance Shower Transfer Goal Contact Guard Assistance Patient/Caregiver Education Goal Caregiver Independent Assisting Patient Days to Meet Goals 14 Frequency of Treatment Frequency Of Treatment Once a Day Treatment Plan OT Treatment Plan ADL Training,Functional Cognition Training,Functional Mobility,Patient/Family Education,Discharge Planning Other Treatment Recommendations and Next Caregiver training and Treatment Focus education of equipment needs . Discharge Recommendations OT Discharge Recommendations Home with 21/04 Assist,Home Health,SNF Rehab,Acute Rehab Transportation Needs at Discharge Private Vehicle
--- NOTE | 2020-03-31 10:57 | P.DS_ITS ---
History of Present Illness History of Present Illness Date Patient Seen: 03/31/20 Time Patient Seen: 10:57 Chief complaint: Stroke Like Symptoms, Can't Stand, Slurred Speech Narrative: Patient 84-year-old female who I am cross covering for for Dr. Temple who was r ecently discharged from the hospital. Patient has had multiple issues over the course of the last month. Apparently on 02/20/2020 she had a left-sided CVA which affected both her speech in her right arm and leg. She was transferred to [facility] at that point no definitive treatment other than Eliquis was elicited. She apparently was in atrial fibrillation long was the cause of the stroke. She apparently went 1 week to rehab and then was sent home. According to her she was ambulating well. Was able to transfer on her own. Should almost completely recovered her verbal ability. Although not completely perfect. She was doing well around the house. She was doing home health and h ad been doing pretty well. Parent Michelle she had a recent fall which created a bleed into a right hepatic cyst and fracture of right 6th rib. And a small pneumothorax. She had been in the hospital from Friday until yesterday when she was discharged apparently doing well. She had went to sleep last night in bed doing well on then woke up and was much more weak on the right side. She was having difficulty mobilizing period was unable to transfer. Apparently the physical therapist came out she was able to get her up and move around some but much weaker than she had been and has been was noting that shoes speech was much worse. She has no headaches. No change in pain. She is having some right abdominal pain but that really isn't any different than it was yesterday. During her tele Neurologic old visit today apparently the neurologist recommended she come to the hospital. She was found to be significantly weaker than her previous evaluation she was undertaken with a CT scan which showed progression of her left CVA but no active bleeding. She had been stopped on her Eliquis due to her previous bleeds. Otherwise she has felt well. She has had no cough. No shortness of breath. No chest pain. No abdominal pain. No urinary changes. No bowel movement changes. Discharge Providers Provider Date of admission: 03/27/20 17:41 Discharge Date: 03/31/20 Primary care physician: Akiko Temple MD Consults: 03/27/20 18:55 Consult to Discharge Planning Routine Comment: Consult to Occupational Therapy Evaluate & Treat Comment: Physician Instructions: Evaluate and treat Consult to Physical Therapy Evaluate & Treat Comment: Physician Instructions: Evaluate and Treat Consult to Speech Therapy Evaluate & Treat Comment: Physician Instructions: Evaluate and treat 03/27/20 19:45 Consult to Dietitian, Adult Routine Comment: Reason For Exam: unintentional weight loss >15lbs Consult to Pastoral Services Routine Comment: patient request- patient states they are Orthodoxy Discharge provider: Muna Martin MD Summary Hospital Course Discharge Diagnosis: Right upper quadrant abdominal pain with elevated liver function tests and question of laceration liver. Possible UTI. White count has come down. Recent MCA CVA with right-sided defect persistent. 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 No current issues Severe acute on chronic protein calorie malnutrition Hospital Course: (Seen today by the hospitalist service at the request of Dr. Temple and Dr. Martel, transferred from [facility], due to holiday coverage issues.) Assessment 1. Right upper quadrant abdominal pain with elevated liver function tests and question of laceration liver. Appreciate Dr. Wylie's consult. She does not feel that this is a liver laceration. She is concerned about possible bleeding verses cholecystitis. We planned to get a HIDA scan. This morning and last evening the family were quite clear that they wished to honor her desire to go home on hospice with no further treatment and no further rehabilitation or surgery. She will be discharging this afternoon. Hospice will be following her in 2 days. Her daughters and other family members will be taking care of her at home as they have been in the recent past. We will continue oxycodone for the pain and give her 5 days of Ceftin to treat the UTI/possible cholecystitis. The focus will be comfort measures with all other medications to be held. Assessment 2. UTI. Continue Ceftin for 5 more days at home. Enterococcus is growing on the 03/25 urine culture. There is no identifiable growth on the 03/27 urine culture. Assessment 3. Recent MCA CVA with right-sided defect persistent. Discussed MRI MRA with patient and her . Suspect that this was recrudescence and not a new stroke. We restarted the Eliquis but now with the possible bleeding in her liver we had to stop it. Advised inpatient rehabilitation upon discharge when she is medically stable. At the patient's request this plan has been abandoned/diverted to home hospice instead. Assessment 4. right rib fracture with pneumothorax now with what looks like a pleural effusion without any respiratory compromise Assessment 5. Hypertension with episode of hypotension. With transition to hospice all blood pressure medicines will be stopped. Assessment 6. Type 2 diabetes, diet controlled, no current issues Assessment 7. 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 No current issues Assessment 8. Severe acute on chronic protein calorie malnutrition Total time today of 32 minutes Exam Vital Signs (past 8 hours): - 03/31/20 04:29 03/31/20 04:41 03/31/20 05:10 Temperature 97.7 F Pulse Rate 130 H 89 101 H Respiratory Rate 16 Blood Pressure 106/59 L 102/43 L Pulse Oximetry 96 03/31/20 08:00 Temperature 97.3 F L Pulse Rate 124 H Respiratory Rate 22 Blood Pressure 125/82 Pulse Oximetry 93 Oxygen Delivery Method Room Air Oxygen Flow Rate 0 Narrative Exam Narrative: She is internally distracted, obviously quite uncomfortable, not communicating or engaging but is aware of her 's presence and is cooperative. Heart is irregularly tachycardic without murmur Lungs are clear to auscultation bilaterally Extremities have no ankle edema Abdomen is soft, bowel sounds active, very tender in the right upper quadrant. She is refusing to eat breakfast and clearly stating to her family that she wants to go home. Objective Labs Result Diagrams: 03/31/20 04:38 03/31/20 04:38 Labs: Laboratory Results - last 24 hr 03/31/20 03/31/20 03/31/20 04:38 04:38 04:38 WBC 8.6 RBC 3.12 L Hgb 10.1 L Hct 29.1 L MCV 93.3 MCH 32.5 MCHC 34.8 RDW 13.7 Plt Count 146 L Neut % (Auto) 81.0 H Lymph % (Auto) 5.7 L Major % (Auto) 12.7 Eos % (Auto) 0.4 L Baso % (Auto) 0.2 Neut # (Auto) 6900 Lymph # (Auto) 500 L Major # (Auto) 1100 H Eos # (Auto) 0 Baso # (Auto) 0 Sodium 135 L Potassium 3.5 Chloride 106 Carbon Dioxide 25 BUN 22 H Creatinine 0.58 Estimated GFR > 60.0 BUN/Creatinine Ratio 37.9 H Glucose 108 Calcium 8.1 L Magnesium 1.9 Total Bilirubin 0.7 AST 136 H ALT 313 H Alkaline Phosphatase 112 Total Protein 5.2 L Albumin 2.3 L Globulin 2.9 Albumin/Globulin Ratio 0.8 L Discharge Plan Discharge Plan Patient Disposition: Hospice - Home Discharge comment: Follow up with hospice outdoor emergency care technician visit in 2 days - Dr. Temple will be the primary care referrer Discharge orders & Medications Prescriptions: New acetaminophen 325 mg Tablet 650 mg PO Q6HR PRN (Reason: Fever) Qty: 30 RF: 0 oxycodone 5 mg Tablet 5 mg PO Q4HR PRN (Reason: Pain, Moderate (4-6)) Qty: 30 RF: 0 cefuroxime axetil 250 mg tablet 250 mg PO BID Qty: 10 RF: 0 Continued POLYETHYLENE GLYCOL 3350 17 gm PO PRN PRN (Reason: Constipation) Qty: 0 RF: 0 hydrocodone-acetaminophen 5-325 mg Tablet 1 tab PO Q4HR PRN (Reason: Pain, Mild (1-3)) Qty: 30 RF: 0 Discontinued LISINOPRIL (Zestril / Prinivil) 10 mg PO Q DAY Qty: 0 RF: 0 amlodipine [Norvasc] 5 MG tablet 10 mg PO QDAY Qty: 0 RF: 0 metoprolol tartrate 25 MG tablet 12.5 mg PO BID Qty: 0 RF: 0 Eliquis 2.5 mg Tablet 2.5 mg PO BID RF: 0 Follow up/Referrals: Akiko Temple MD [Primary Care Provider] - Diet/Activity/Treatments Diet: Diet as Tolerated and Carb-consistent/Diabetic Diet comment: dysphagia mechanical thin Visit Report/Discharge Packet Instructions: Cefuroxime, Oxycodone Visit Report Forms: Patient Portal/API, Stroke Signs & Symptoms Discharge Data Primary Care Provider: Akiko Temple
--- NOTE | 2020-03-31 11:28 | PT.IPTN ---
Current Diagnoses Anemia, unspecified (03/27/20) Paroxysmal atrial fibrillation (03/27/20) Cerebral infarction, unspecified (03/27/20) Unspecified sequelae of cerebral infarction (03/27/20) Nonspecific elevation of levels of transaminase and lactic acid dehydrogenase [LDH] (03/27/20) Abnormal levels of other serum enzymes (03/27/20) Fracture of one rib, right side, initial encounter for closed fracture (03/27/20) Contusion of liver, initial encounter (03/27/20) computer terminal operator (current) use of anticoagulants (03/27/20) Physical Therapy Treatment Note M2 PT-IP Current Condition Start: 03/28/20 08:28 Freq: NEEDED Status: Active Protocol: Document 03/28/20 11:07 AW (Rec: 03/28/20 11:24 AW [id number]) Physical Therapy Current Condition Current Condition Evaluation Date 03/28/20 Treatment Diagnosis CVA; difficulty in walking Onset Date 03/27/20 M3 PT-IP Subjective Start: 03/28/20 08:28 Freq: NEEDED Status: Active Protocol: Document 03/31/20 11:04 KS (Rec: 03/31/20 12:36 KS [id number]) Subjective Physical Therapy Visit Type Type Treatment Note Visit Start Time 11:04 Visit Stop Time 11:28 Total Visit Minutes 24 Number of HR INTERNSHIP Visits 1 Physical Therapy Visit Comments Patient Comments pt agreeable to do PT. spouse in room with pt. Therapy Pain Assessment Pain When Pain Assessed During Mobility Pain Present Pain Present Pain Reported Location Right Abdomen Intensity 7 Scale Used R lateral ribcage Pain Behaviors Facial Grimacing,[place]incing Pain Management Techniques Re-positioning M4 PT-IP Mobility and Gait Start: 03/28/20 08:28 Freq: NEEDED Status: Active Protocol: Document 03/31/20 11:04 KS (Rec: 03/31/20 12:36 KS [id number]) PT-Bed Mobility Assessment Rolling Type of Rolling Roll to Right Level of Assist Moderate Assistance,1 Person Assistance Supine to Sit Supine to Sit Moderate Assistance,1 Person Assistance Sit to Supine Sit to Supine Moderate Assistance,1 Person Assistance Scooting Scooting to Edge of Bed Minimal Assistance Scooting Up and Down in Bed Maximum Assistance PT-Transfer Assessment Sit to and From Stand Sit to and from Stand Moderate Assistance,1 Person Assistance,Use of Upper Extremities Equipment Transfer Assistive Device Gait Belt Orthotic/Prosthetic Devices or Brace: No Transfers Transfer Destination Bed,Chair Transfer Technique Stand Step Pivot Transfer Ability Level of Assist Moderate Assistance,1 Person Assistance,Use of Upper Extremities Comments Mobility Comments Pt was in bed upon arrival from therapy w/ in room. Pts provided Mod A for pt sup<>sit and Min A and cues for pt scooting EOB. Pts then provided Mod A for pt sit<>stand and stand step pivot to chair on L side. Pts provided correct cues and guarding, cues to pts to lift w/ legs. Pt then Min A for stand<>sit and w/ cues for hand placement all provided by . Pt then performed 20 second seated marching for proximal hip strengthening and took 1 min seated rest break. Pt then transferred back to bed using stand step pivot and Mod A and cues all provided by . Pt Mod A for sit<>sup and Max A x2 for scooting up in bed. Pt left in room w/ all needs in reach. Gait Assessment Gait Gait Assistance Required: Moderate Assistance,1 Person Assist Distance (Feet) 2 Able to Maintain Weight Bearing Status Yes During Gait Assistive Devices Assistive Device Gait Belt,[place] Walker Orthotic/Prosthetic Devices or Brace: No Factors Limiting Gait Function Factors Limiting Gait Function Decreased Activity Tolerance, Decreased Strength, Incoordination,Limited Range of Motion,Pain,Poor Balance, Poor Safety Awareness Comments Gait Comments pls refer to mobility section for details Stair Climbing Assessment Comments Stair Climbing Comments Not assessed. No stairs at home. PT-Balance Assessment Sitting Balance and Reactions Static Sitting Balance Ability Good Dynamic Sitting Balance Ability Fair Standing Balance and Reactions Static Standing Balance Ability Poor Dynamic Standing Balance Ability Poor Device Used HW M5 PT-IP Objective Assessments Start: 03/28/20 08:28 Freq: NEEDED Status: Active Protocol: Document 03/28/20 11:07 AW (Rec: 03/28/20 12:25 AW [id number]) Orientation Orientation/Cognition Level of Alertness Lethargic Orientation Name,Day of Week,Place, Situation Language Function Ability Garbled Speech Safety Awareness Decreased Safety Awareness Memory Description Short Term Impaired Gross Range of Motion Upper Extremity ROM Assessment Right Impaired Impairments AROM right shoulder: FF limited to ~70 degrees Lower Extremity ROM Assessment Within Functional Limits Strength Upper Extremity Strength Assessment Right Impaired Shoulder 3-/5 Elbow 3/5 Wrist 3/5 Hand 3-/5 Lower Extremity Strength Assessment Right Impaired Hip 3+/5 Knee 3+/5 Ankle 3-/5 Coordination Assessment Assessment Finger to Nose Test Normal Performance Coordination Comments Normal with LUE. Unable with RUE Sensation Assessment Comments Sensation Comments Pt denies sensation changes Muscle Tone Muscle Tone Location Right Upper Extremity Type of Tone Hypertonicity,Flexor Severity of Tone Mild Comments Muscle Tone Comments RUE elbow flexion with rigidity of 1+ on modified Supa scale M6 PT-IP Treatment Start: 03/28/20 08:28 Freq: NEEDED Status: Active Protocol: Document 03/31/20 11:04 KS (Rec: 03/31/20 12:36 KS [id number]) Physical Therapy Treatment Education Education Provided Safety Other Treatments Other Treatment Performed Caregiver training M7 PT-IP Assessment and Plan Start: 03/28/20 08:28 Freq: NEEDED Status: Active Protocol: Document 03/31/20 11:04 KS (Rec: 03/31/20 12:36 KS [id number]) PT Summary Assessment and Plan Potential Rehabilitation Potential Good Summary Impairments Pain,ROM,Strength,Balance, Coordination,Sensation,Tone, Cognition,Bed Mobility, Transfers,Gait,Activity Tolerance Progress Towards Goals Slow Progress due to Medical Issues Assessment Summary Pts able to tolerate sit<> stand and transfer to and from chair w/ Mod A and cues provided by . Pt also able to complete 20 sec seated marching. Pts was able to safely provide guarding and cues throughout treatment and correctly applied gait belt. Pt continues to have R sided neglect and needs assist w/ all mobility and transfers and would benefit from SNF or Acute rehab to improve strength and tolerance for activity. Goals Bed Mobility Goal Minimal Assistance Transfer Goal Minimal Assistance Gait Goal Minimal Assistance,[place] Walker Gait Distance 50 Days to Meet Goals 10 Frequency of Treatment Frequency Of Treatment Twice a Day Treatment Plan Physical Therapy Treatment Plan Bed Mobility Training,Transfer Training,Gait Training, Therapeutic Exercise,Balance Retraining,Post Op Education, Discharge Planning, Neuromuscular Re-ed, Coordination Retraining Other Recommendations and Next Treatment transfers, gait with quad cane Focus , sitting and standing balance , emphasis on use of RUE Recommendations To Nursing Amount of Assist Needed 1 Person Assist Discharge Recommendations PT Discharge Recommendations SNF Rehab,Acute Rehab Transportation Needs at Discharge Wheelchair/Cabulance
[2020-03-31] MEDS: CEFTRIAXONE 1 GM/50 ML FROZ.PIGGY IV (11:39)
--- NOTE | 2020-03-31 12:52 | PC.NURSE ---
Addendum entered by Rosario Laurent R.N. 03/31/20 13:00: iv and tele removed. Pt to private vehicle for transport home. Hospice to open to services on Monday 04/02 Original Note: Am Shift Pt is reporting desire to d/c home, and d/c planning is working on Hospice opening tomorrow. Home health is coming to assist, and adult children are home to assist with care. Spouse at bedside and involved in care. plan to dc home later today. oxy sufficient for pain control. 1mod assist for transfers notably weaker than yesterday with this RN in transfers.
--- NOTE | 2020-04-03 12:31 | CM.DPC ---
DCP cont: Faxed discharge summary to [facility], Attn: Mega at fax # [phone]. Fax confirmation scanned in. Shoshana Soto, Care [employer] Operator
== END 2020-03-31 13:01 | disposition hospice, home (50) | DRG 64 ==
LOC: ED 17:41 → AC 17:41
PROVIDERS: Internal Medicine; Nurse Practitioner Adult Health; Admitting Provider Family Medicine; Emergency Provider Emergency Medicine; PCP Family Medicine; Referring Provider Emergency Medicine; Visit Provider Family Medicine
DX: I63.9 Cerebral infarction, unspecified (principal); E43 Unspecified severe protein-calorie malnutrition; G81.91 Hemiplegia, unspecified affecting right dominant side; N39.0 Urinary tract infection, site not specified; Z68.1 Body mass index [BMI] 19.9 or less, adult; S22.31XD Fracture of one rib, right side, subsequent encounter for fracture with routine healing; I48.0 Paroxysmal atrial fibrillation; E11.9 Type 2 diabetes mellitus without complications; D72.829 Elevated white blood cell count, unspecified; R33.9 Retention of urine, unspecified; K81.9 Cholecystitis, unspecified; K76.89 Other specified diseases of liver; I10 Essential (primary) hypertension; I69.328 Other speech and language deficits following cerebral infarction; W19.XXXD Unspecified fall, subsequent encounter; Z11.59 Encounter for screening for other viral diseases; Z85.028 Personal history of other malignant neoplasm of stomach
CPT/HCPCS: 36415; 70450; 70548; 70553; 71045; 71260; 74176; 74177; 80048; 80053; 81001; 82550; 82962; 83690; 83735; 84484; 85025; 85610; 85730; 87077; 87086; 87186; 87635; 92526; 92610; 93005; 96360; 97112; 97116; 97162; 97166; 97530; 97535; 99285; A9579; J3480